=== PATIENT | male | born 1940 | race Caucasian/White ===

== ENCOUNTER 2018-07-14 09:18 | Inpatient (IN) | payer MEDICARE, BC ==
[~2018-07-14] VITALS: Ht 167.6 cm; Wt 77.5 kg
[2018-07-14] VITALS (21 sets, daily range): BP systolic 86–206; BP diastolic 44–112; PULSE 59–91; RESP 10–30; Ht 167.6 cm; Wt 77.5 kg
[~2018-07-14 09:18] MED LIST: CARV3.12 PO; CYCL10TA7 PO; DESFLURANE 15 MIN ONE; DOXA4TAB3 PO; DUTA0.5C PO; GABA300C PO; HYDR-762 PO; LOVA20TA PO
[2018-07-14] MEDS ORDERED: DOXA8TAB65 PO (09:51)
[2018-07-14] MEDS ORDERED: ATOR10TA65 PO (09:51)
[2018-07-14] MEDS ORDERED: CYCL10TA7 PO (09:52)
[2018-07-14] MEDS ORDERED: DUTA0.5C PO (09:53)
[2018-07-14] MEDS ORDERED: METO-335 PO (09:53)
[2018-07-14] MEDS ORDERED: ASPI81TA52 PO (09:54)
--- NOTE | 2018-07-14 11:35 | PREAC ---
Date/Time of Note Date/Time of Note DATE: 07/14/18 TIME: 11:28 Anesthesia Eval and Record Evaluation Time Pre-Procedure Interview DATE: 07/14/18 TIME: 11:28 Age 77 Sex male NPO: 8 hrs Preoperative diagnosis lumbar stenosis Planned procedure L2 to L4 anterior lumbar interbody fusion retroperitoneal approach with instrum entation, with iliac crest bone graft Past Medical History Past Medical History: Includes Cardio: HTN, Dyslipidemia, CAD, Other (aortic valve sclerosis) Pulm: COPD, Sleep Apnea Surgery & Anesthesia Issues No known issue Meds Anticoagulation: No Beta Alma within 24 hr: Yes Reported Medications Aspirin (Low Dose Aspirin) 81 Mg Tablet.dr, 81 MG PO DAILY, #30 TAB 07/14/18 Dutasteride* (Avodart*) 0.5 Mg Capsule, 0.5 MG PO DAILY, CAP 07/14/18 Metoprolol Succinate* (Toprol XL*) 25 Mg Tab.sr.24h, 25 MG PO DAILY, #30 TAB 07/14/18 Cyclobenzaprine Hcl* (Cyclobenzaprine Hcl*) 10 Mg Tablet, 10 MG PO BID PRN for MUSCLE SPASMS, #60 TAB 07/14/18 Doxazosin Mesylate* (Doxazosin Mesylate*) 8 Mg Tablet, 8 MG PO HS, TAB 07/14/18 Atorvastatin Calcium (Atorvastatin Calcium) 10 Mg Tablet, 10 MG PO QHS, #30 TAB 07/14/18 Discontinued Reported Medications Hydrocodone Bit-Acetaminophen* ([place]*) 10-325 Mg Tablet, 1 TAB PO Q4H PRN for PAIN, TAB 05/03/15 Carvedilol* (Coreg*) 3.125 Mg Tablet, 3.125 MG PO BID, TAB 05/03/15 Dutasteride* (Avodart*) 0.5 Mg Capsule, 0.5 MG PO DAILY, CAP 05/03/15 Cyclobenzaprine Hcl* (Cyclobenzaprine Hcl*) 10 Mg Tablet, 10 MG PO BID, TAB 05/03/15 Doxazosin Mesylate* (Doxazosin Mesylate*) 4 Mg Tablet, 4 MG PO DAILY, TAB 05/03/15 Lovastatin* (Lovastatin*) 20 Mg Tablet, 20 MG PO HS, TAB 05/03/15 Gabapentin* (Neurontin*) 300 Mg Capsule, 300 MG PO BID, CAP 05/03/15 Current Medications Cefazolin Sodium/ Dextrose 50 ml @ 100 mls/hr PRE-OP ONCE IVPB ; Start 07/15/18 at 06:00; Stop 07/15/18 at 06:29 Lactated Ringer's 1,000 ml @ 0 mls/hr Q0M IV* Last administered on 07/14/18at 1 0:33; Admin Dose 30 MLS/HR; Start 07/15/18 at 06:00; Stop 07/15/18 at 23:00 Meds reviewed: Yes Allergies Coded Allergies: No Known Allergy (Unverified , 07/14/18) Allergies Reviewed: Yes Labs/Studies Labs Reviewed: Reviewed by anesthesiologist Blood Bank Test 07/14/18 10:10 Antibody Screen NEGATIVE Blood Type A NEGATIVE test: N/A Studies: ECG, CXR Pre-procedure Exam Last vitals Vital Signs Date Temp Pulse Resp B/P (MAP) Pulse Ox O2 O2 Flow FiO2 Time Delivery Rate 07/14/18 97.6 83 16 129/80 97 Room Air 09:37 (96) Airway: Adequate mouth opening, Adequate thyromental dist Mallampati: Mallampati II Teeth: Normal Lung: Normal Heart: Normal ASA Physical Status ASA physical status: 3 Emergency: None Planned Anesthetic General/MAC: ETT Planned Pain Management Parenteral pain med Pre-operative Attestations Prior to commencing anesthesia and surgery, the patient was re-evaluated, there was verification of: *The patient's identity *The results of appropriate recent lab work and preoperative vital signs *The above evaluation not changing prior to induction *Anesthetic plan, risk benefits, alternative and complications discussed with patient/family; questions answered; patient/family understands, accepts and wishes to proceed. GIDEON PA Jul 14, 2018 11:35
[2018-07-14] MEDS ORDERED: HEPARIN 1000 UNITS/ML 10 ML INJ ONE (11:40)
[2018-07-14] MEDS ORDERED: SURGIFOAM POWDER 1 GM KIT ONE (11:40)
[2018-07-14] MEDS ORDERED: GELATIN SIZE 100 SPONGE ONE (11:40)
[2018-07-14] MEDS ORDERED: BUPIVACAINE 0.5%/EPI (SDV) 30 ML INJ ONE (11:40)
[2018-07-14] MEDS ORDERED: THROMBIN 5000 UNIT VIAL ONE (11:40)
[2018-07-14] MEDS ORDERED: PROPOFOL 20 ML ONE (12:05)
[2018-07-14] MEDS ORDERED: ROCURONIUM 50 MG INJ ONE (12:09)
--- NOTE | 2018-07-14 12:21 | HPN ---
Date/Time of Note Date/Time of Note DATE: 07/14/18 TIME: 12:21 Interval H&P Admission Note Pt. seen H&P reviewed: No system changes ELIEZER JETER PA-C Jul 14, 2018 12:21
[2018-07-14] MEDS ORDERED: LABETALOL HCL 20MG INJ ONE (12:38)
[2018-07-14] MEDS ORDERED: CEFAZOLIN 1 GM INJ ONE (13:08)
[2018-07-14] MEDS ORDERED: ONDANSETRON 4 MG INJ ONE (13:09)
[2018-07-14] MEDS ORDERED: DEXAMETHASONE 4 MG/ML 5 ML INJ ONE (13:09)
[2018-07-14] MEDS ORDERED: morphine 10 MG INJ ONE (13:10)
[2018-07-14] MEDS ORDERED: POLYMYXIN/BACITRACIN 1L IRRIG IRR ONE (13:47)
[2018-07-14] MEDS ORDERED: OXYCODONE/ACETAMINOPHEN (10/325) TAB PO PRN (15:30)
[2018-07-14] MEDS ORDERED: ACETAMINOPHEN 325 MG TAB PO PRN (15:30)
[2018-07-14] MEDS ORDERED: DIPHENHYDRAMINE 50 MG INJ IV PRN ×2 (15:30)
[2018-07-14] MEDS ORDERED: EPHEDrine SULFATE 50 MG/5 ML SYG IV PRN (15:30)
[2018-07-14] MEDS ORDERED: hydrALAzine 20 MG INJ IV PRN (15:30)
[2018-07-14] MEDS ORDERED: LABETALOL HCL 20MG INJ IV PRN (15:30)
[2018-07-14] MEDS ORDERED: ALBUTEROL 0.083% (NEB) 2.5 MG/3 ML AMP HHN PRN (15:30)
[2018-07-14] MEDS ORDERED: HYDROmorphONE 0.5 MG/0.5 ML SYG IV PRN ×3 (15:30)
[2018-07-14] MEDS ORDERED: morphine 4 MG/ML VIAL ONE (15:30)
[2018-07-14] MEDS ORDERED: MEPERIDINE 25 MG INJ IV PRN (15:30)
[2018-07-14] MEDS ORDERED: METOCLOPRAMIDE 10 MG INJ IV PRN (15:30)
[2018-07-14] MEDS ORDERED: BISACODYL 10 MG SUPP PR PRN (15:30)
[2018-07-14] MEDS ORDERED: CYCLOBENZAPRINE 10 MG TAB PO PRN (15:30)
[2018-07-14] MEDS ORDERED: ONDANSETRON 4 MG INJ IV PRN ×2 (15:30)
[2018-07-14] MEDS ORDERED: MIDAZOLAM 1 MG/ML 2 ML INJ IV PRN (15:30)
[2018-07-14] MEDS ORDERED: FENTAnyl 50 MCG/ML VIAL IV PRN ×2 (15:30)
[2018-07-14] MEDS ORDERED: DIPHENHYDRAMINE 25 MG CAP PO PRN (15:30)
[2018-07-14] MEDS ORDERED: AL HYDROX/MG HYDROX/SIMETH 30 ML CUP PO PRN (15:30)
[2018-07-14] MEDS ORDERED: CEPASTAT LOZENGE MT PRN (15:30)
[2018-07-14] MEDS ORDERED: NALOXONE (0.4 MG/ML) INJ IV PRN (15:30)
--- NOTE | 2018-07-14 15:31 | SIPON ---
Date/Time of Note Date/Time of Note DATE: 07/14/18 TIME: 15:30 Operative Report Preoperative Diagnosis lumbar deg scoli Postoperative Diagnosis lumbar deg scoli Operation/Procedure Performed L2-4 ALIF Surgeon see signature line [employer] assistant shavon Anesthesia: general Estimated blood loss: 10 - 50 ml's Transfusion Required none Specimen disk Grafts/Implants cages Complications none DEANNE NEWTON MD Jul 14, 2018 15:31
[2018-07-14] MEDS ORDERED: HYDROmorphONE 1 MG/ML SYG ONE (15:32)
[2018-07-14] MEDS ORDERED: FENTAnyl 50 MCG/ML VIAL ONE ×2 (15:39→15:49)
--- NOTE | 2018-07-14 15:41 | PAC ---
Date/Time of Note Date/Time of Note DATE: 07/14/18 TIME: 15:40 Post-Anesthesia Notes Post-Anesthesia Note Last documented vital signs Vital Signs Date Temp Pulse Resp B/P (MAP) Pulse Ox O2 O2 Flow FiO2 Time Delivery Rate 07/14/18 98.2 83 18 167/89 99 15:38 07/14/18 83 16 129/80 97 Room Air 09:37 (96) Activity: WNL Respiratory function: WNL Cardiovascular function: WNL Mental status: Baseline Pain reasonably controlled: Yes Hydration appropriate: Yes Nausea/Vomiting absent: Yes GIDEON PA Jul 14, 2018 15:41
[2018-07-14] MEDS ORDERED: hydrALAzine 20 MG INJ ONE (16:01)
[2018-07-14] MEDS: FENTAnyl 50 MCG/ML VIAL IV PRN ×5 (16:11→16:55)
[2018-07-14] MEDS: D5W-0.45 NACL + KCL 20 MEQ 1,000 ML IV SCH (16:26)
[2018-07-14] MEDS: CEFAZOLIN 1 GM/50 ML (PMX) 50 ML IVPB SCH (16:32)
--- NOTE | 2018-07-14 16:58 | PN ---
Date/Time of Note Date/Time of Note DATE: 07/14/18 TIME: 16:52 Assessment/Plan VTE Prophylaxis Risk score (from Nsg)>0 risk: 3 SCD applied (from Ns): Yes Pharmacological prophylaxis: NA/contraindicated Pharm contraindication: surgical contra Lines/Catheters IV Catheter Type (from Nrsg): Peripheral IV Urinary Cath still in place: Yes Reason Cath still needed: urinary retention Subjective 24 Hr Interval Summary Free Text/Dictation our group asked to see mr burr post op. he underwent an anterior interbody lumbar fusion today. in icu, awake but lots of pain. pmh reviewed, followed at [facility] and by cardiology by dr diaz. current issues...cad, stable, nl preop work up, hypertension, and hyperlipidemia. followed at [facility] w hx bronchiectasis, on fluticasone nasal spraqy and airduo inhaler bid. does not uses cpap machine. also hx bph on avodart and cardura. the cardura dose is 8mg, will hold for now as anders in place and bp a little low. lungs sound clear, hr ok, no edema, abd soft, scds on. Musculoskeletal: back pain Exam/Review of Systems Vital Signs Vitals Vital Signs Date Temp Pulse Resp B/P (MAP) Pulse Ox O2 O2 Flow FiO2 Time Delivery Rate 07/14/18 98.2 15:38 07/14/18 67 15:30 07/14/18 16 129/80 97 Room Air 09:37 (96) Medications Medications Current Medications Cefazolin Sodium/ Dextrose 50 ml @ 100 mls/hr PRE-OP ONCE IVPB ; Start 07/15/18 at 06:00; Stop 07/15/18 at 06:29 Lactated Ringer's 1,000 ml @ 0 mls/hr Q0M IV* Last administered on 07/14/18at 10:33; Admin Dose 30 MLS/HR; Start 07/15/18 at 06:00; Stop 07/15/18 at 23:00 Potassium Chloride/Dextrose/ Sod Cl 1,000 ml @ 100 mls/hr Q10H IV Last administered on 07/14/18at 16:26; Admin Dose 100 MLS/HR; Start 07/14/18 at 15:18 Oxycodone/ Acetaminophen (Endocet (10 325)) 1 tab Q4H PRN PO PAIN LEVEL 1-5; Start 07/17/18 at 15:00 Hydromorphone HCl (Dilaudid) 0.2 mg Q1H PRN IV BREAKTHROUGH PAIN; Start 07/14/18 at 15:30 Cefazolin Sodium 50 ml @ 100 mls/hr Q8H IVPB Last administered on 07/14/18at 16:32; Admin Dose 100 MLS/HR; Start 07/14/18 at 15:30; Stop 07/15/18 at 07:59 Ondansetron HCl (Zofran Inj) 4 mg Q6H PRN IV NAUSEA AND/OR VOMITING; Start 07/14/18 at 15:30 Bisacodyl (Dulcolax Supp) 10 mg DAILY PRN MA CONSTIPATION; Start 07/14/18 at 15:30 Docusate Sodium (Colace) 100 mg BID PO ; Start 07/14/18 at 21:00 Pantoprazole (Protonix Iv) 40 mg DAILY@06 IV ; Start 07/15/18 at 06:00 Al Hydrox/Mg Hydrox/Simethicone (Mag-Al Plus) 15 ml Q6H PRN PO const; Start 07/14/18 at 15:30 Acetaminophen (Tylenol Tab) 650 mg Q4H PRN PO fever; Start 07/14/18 at 15:30 Cyclobenzaprine HCl (Flexeril) 10 mg TID PRN PO MUSCLE SPASMS; Start 07/14/18 at 15:30 Phenol (Cepastat Lozenge) 1 lozenge PRN PRN MT SORE THROAT; Start 07/14/18 at 15:30 Diphenhydramine HCl (Benadryl) 25 mg Q6H PRN PO ITCHING; Start 07/14/18 at 15:30 Diphenhydramine HCl (Benadryl) 25 mg Q6H PRN IV ITCHING; Start 07/14/18 at 15:30 Naloxone HCl (Narcan) 0.2 mg Q2M PRN IV DECREASED REPIRATORY RATE; Start 07/14/18 at 15:30 Hydromorphone HCl (Dilaudid MARKETING LIAISON) MARKETING LIAISON to be started in PACU Q4PCA IV ; Start 07/14/18 at 15:30; Stop 07/17/18 at 10:00 Miscellaneous Information 1. Hold MARKETING LIAISON at 1,000... MARKETING LIAISON IV ; Start 07/14/18 at 15:30; Stop 07/17/18 at 14:00 Hydromorphone HCl (Dilaudid) 0.2 mg ICU RECOVERY PRN IV MILD PAIN LEVEL 1-3; Start 07/14/18 at 15:30; Stop 07/14/18 at 21:00 Hydromorphone HCl (Dilaudid) 0.4 mg ICU RECOVERY PRN IV MODERATE PAIN LEVEL 4-6; Start 07/14/18 at 15:30; Stop 07/14/18 at 21:00 Hydromorphone HCl (Dilaudid) 0.6 mg ICU RECOVERY PRN IV SEVERE PAIN LEVEL 7-10; Start 07/14/18 at 15:30; Stop 07/14/18 at 21:00 Fentanyl (Sublimaze) 25 mcg ICU RECOVERY PRN IV MILD PAIN LEVEL 1-3; Start 07/14/18 at 15:30; Stop 07/14/18 at 21:00 Fentanyl (Sublimaze) 50 mcg ICU RECOVERY PRN IV MODERATE PAIN LEVEL 4-6; Start 07/14/18 at 15:30; Stop 07/14/18 at 21:00 Fentanyl (Sublimaze) 75 mcg ICU RECOVERY PRN IV SEVERE PAIN LEVEL 7-10 Last administered on 07/14/18at 16:34; Admin Dose 75 MCG; Start 07/14/18 at 15:30; Stop 07/14/18 at 21:00 Ondansetron HCl (Zofran Inj) 4 mg ICU RECOVERY PRN IV NAUSEA AND/OR VOMITING; Start 07/14/18 at 15:30; Stop 07/14/18 at 21:00 Metoclopramide HCl (Reglan) 10 mg ICU RECOVERY PRN IV NAUSEA AND/OR VOMITING; Start 07/14/18 at 15:30 Labetalol HCl (Labetalol) 5 mg ICU RECOVERY PRN IV ELEVATED BLOOD PRESSURE Last administered on 07/14/18at 16:22; Admin Dose 5 MG; Start 07/14/18 at 15:30; Stop 07/14/18 at 21:00 Hydralazine HCl (Apresoline) 5 mg ICU RECOVERY PRN IV ELEVATED BLOOD PRESSURE Last administered on 07/14/18at 16:10; Admin Dose 5 MG; Start 07/14/18 at 15:30; Stop 07/14/18 at 21:00 Ephedrine Sulfate 5 mg ICU RECOVERY PRN IV BLOOD PRESSURE SUPPORT; Start 07/14/18 at 15:30; Stop 07/14/18 at 21:00 Albuterol (Proventil 0.083% (Neb)) 2.5 mg ICU RECOVERY PRN HHN WHEEZING; Start 07/14/18 at 15:30 Meperidine HCl (Demerol) 25 mg ICU RECOVERY PRN IV POST OPERATIVE SHIVERING; Start 07/14/18 at 15:30; Stop 07/14/18 at 21:00 Diphenhydramine HCl (Benadryl) 25 mg ICU RECOVERY PRN IV PRURITUS; Start 07/14/18 at 15:30; Stop 07/14/18 at 21:00 Midazolam HCl (Versed) 0.5 mg ICU RECOVERY PRN IV ANXIETY; Start 07/14/18 at 15:30; Stop 07/14/18 at 21:00 Oxycodone/ Acetaminophen (Endocet (10/ 325)) 2 tab Q4H PRN PO PAIN LEVEL 6-10; Start 07/17/18 at 15:00 Oxycodone/ Acetaminophen (Percocet (5/ 325)) 2 tab 0930 PO ; Start 07/17/18 at 09:30; Stop 07/17/18 at 09:31 Atorvastatin Calcium (Lipitor) 10 mg QHS PO ; Start 07/14/18 at 21:00; Status UNV Dutasteride (Avodart) 0.5 mg DAILY PO ; Start 07/15/18 at 09:00; Status UNV Metoprolol Succinate (Toprol Xl) 25 mg DAILY PO ; Start 07/15/18 at 09:00; Status UNV JAN IRAHETA MD Jul 14, 2018 16:58
[2018-07-14] MEDS: HYDROmorphONE 0.2 MG/ML PCA IV SCH (18:33)
[2018-07-14] MEDS: HYDROmorphONE 0.5 MG/0.5 ML SYG IV PRN (19:33)
[2018-07-14] MEDS ORDERED: DOCUSATE SODIUM 100 MG CAP PO SCH (21:00)
[2018-07-14] MEDS: ATORVASTATIN 10 MG TAB PO SCH (22:08)
[2018-07-15] VITALS (27 sets, daily range): BP systolic 98–153; BP diastolic 39–111; PULSE 73–123; RESP 11–27
[2018-07-15] MEDS: CEFAZOLIN 1 GM/50 ML (PMX) 50 ML IVPB SCH ×3 (00:07→18:22)
[2018-07-15] MEDS: HYDROmorphONE 0.2 MG/ML PCA IV SCH ×3 (02:13→19:37)
[2018-07-15] MEDS: HYDROmorphONE 0.5 MG/0.5 ML SYG IV PRN ×4 (03:43→19:51)
[2018-07-15] MEDS: D5W-0.45 NACL + KCL 20 MEQ 1,000 ML IV SCH ×2 (03:47→16:16)
[2018-07-15] MEDS ORDERED: CEFAZOLIN 2 GM/50 ML (PMX) 50 ML IVPB ONE (06:00)
[2018-07-15] MEDS ORDERED: PANTOPRAZOLE 40 MG INJ IV SCH (06:00)
[2018-07-15] MEDS ORDERED: LACTATED RINGER'S 1,000 ML IV* SCH (06:00)
[2018-07-15] MEDS ORDERED: SURGIFOAM POWDER 1 GM KIT ONE ×4 (06:39→11:45)
[2018-07-15] MEDS ORDERED: HEPARIN 1000 UNITS/ML 10 ML INJ ONE ×2 (06:40→06:51)
[2018-07-15] MEDS ORDERED: CEFAZOLIN 1 GM INJ ONE ×2 (06:40→07:00)
[2018-07-15] MEDS ORDERED: BUPIVACAINE 0.5%/EPI (SDV) 30 ML INJ ONE (06:40)
[2018-07-15] MEDS ORDERED: SODIUM CL BACTERIOSTATIC 30 ML INJ ONE (06:41)
[2018-07-15] MEDS ORDERED: BUPIVACAINE 0.25% (MPF) 30 ML INJ ONE (06:42)
[2018-07-15] MEDS ORDERED: THROMBIN 5000 UNIT VIAL ONE ×3 (06:50→11:46)
[2018-07-15] MEDS ORDERED: CA CHLORIDE 10% 10 ML SYRINGE ONE (06:51)
[2018-07-15] MEDS ORDERED: ROCURONIUM 50 MG INJ ONE ×2 (07:00→07:20)
[2018-07-15] MEDS ORDERED: DESFLURANE 15 MIN ONE (07:00)
[2018-07-15] MEDS ORDERED: METOCLOPRAMIDE 10 MG INJ ONE (07:00)
--- NOTE | 2018-07-15 07:08 | HPN ---
Date/Time of Note Date/Time of Note DATE: 07/15/18 TIME: 07:07 Interval H&P Admission Note Pt. seen H&P reviewed: No system changes ELIEZER JETER PA-C Jul 15, 2018 07:07
--- NOTE | 2018-07-15 07:10 | PREAC ---
Date/Time of Note Date/Time of Note DATE: 07/15/18 TIME: 07:08 Anesthesia Eval and Record Evaluation Time Pre-Procedure Interview DATE: 07/15/18 TIME: 07:08 Age 77 Sex male NPO: 8 hrs Preoperative diagnosis lumbar spinal stenosis s/p lateral fixation Planned procedure anterior/posterior spinal decompression and fusion Past Medical History Past Medical History: Includes Cardio: HTN, Dyslipidemia, [place], CAD, PTCA/Stent, CHF, Other (AV slerosis (unknown width() Pulm: COPD Neuro: Peripheral neuropathy Musculoskeletal: Osteoarthritis Surgery & Anesthesia Issues No known issue Meds Anticoagulation: No Beta Alma within 24 hr: Yes Reason Beta Alma not given: Pt. not on B-Alma Reported Medications Aspirin (Low Dose Aspirin) 81 Mg Tablet.dr, 81 MG PO DAILY, #30 TAB 07/14/18 Dutasteride* (Avodart*) 0.5 Mg Capsule, 0.5 MG PO DAILY, CAP 07/14/18 Metoprolol Succinate* (Toprol XL*) 25 Mg Tab.sr.24h, 25 MG PO DAILY, #30 TAB 07/14/18 Cyclobenzaprine Hcl* (Cyclobenzaprine Hcl*) 10 Mg Tablet, 10 MG PO BID PRN for MUSCLE SPASMS, #60 TAB 07/14/18 Doxazosin Mesylate* (Doxazosin Mesylate*) 8 Mg Tablet, 8 MG PO HS, TAB 07/14/18 Atorvastatin Calcium (Atorvastatin Calcium) 10 Mg Tablet, 10 MG PO QHS, #30 TAB 07/14/18 Discontinued Reported Medications Hydrocodone Bit-Acetaminophen* ([place]*) 10-325 Mg Tablet, 1 TAB PO Q4H PRN for PAIN, TAB 05/03/15 Carvedilol* (Coreg*) 3.125 Mg Tablet, 3.125 MG PO BID, TAB 05/03/15 Dutasteride* (Avodart*) 0.5 Mg Capsule, 0.5 MG PO DAILY, CAP 05/03/15 Cyclobenzaprine Hcl* (Cyclobenzaprine Hcl*) 10 Mg Tablet, 10 MG PO BID, TAB 05/03/15 Doxazosin Mesylate* (Doxazosin Mesylate*) 4 Mg Tablet, 4 MG PO DAILY, TAB 05/03/15 Lovastatin* (Lovastatin*) 20 Mg Tablet, 20 MG PO HS, TAB 05/03/15 Gabapentin* (Neurontin*) 300 Mg Capsule, 300 MG PO BID, CAP 05/03/15 Current Medications Lactated Ringer's 1,000 ml @ 0 mls/hr Q0M IV* Last administered on 07/14/18at 10:33; Admin Dose 30 MLS/HR; Start 07/15/18 at 06:00; Stop 07/15/18 at 23:00 Potassium Chloride/Dextrose/ Sod Cl 1,000 ml @ 100 mls/hr Q10H IV Last administered on 07/15/18at 03:47; Admin Dose 100 MLS/HR; Start 07/14/18 at 15:18 Oxycodone/ Acetaminophen (Endocet (10 325)) 1 tab Q4H PRN PO PAIN LEVEL 1-5; Start 07/17/18 at 15:00 Hydromorphone HCl (Dilaudid) 0.2 mg Q1H PRN IV BREAKTHROUGH PAIN Last a dministered on 07/15/18at 06:29; Admin Dose 0.2 MG; Start 07/14/18 at 15:30 Cefazolin Sodium 50 ml @ 100 mls/hr Q8H IVPB Last administered on 07/15/18at 00:07; Admin Dose 100 MLS/HR; Start 07/14/18 at 15:30; Stop 07/15/18 at 07:59 Ondansetron HCl (Zofran Inj) 4 mg Q6H PRN IV NAUSEA AND/OR VOMITING; Start 07/14/18 at 15:30 Bisacodyl (Dulcolax Supp) 10 mg DAILY PRN [place] CONSTIPATION; Start 07/14/18 at 15:30 Docusate Sodium (Colace) 100 mg BID PO Last administered on 07/14/18at 22:08; Admin Dose 100 MG; Start 07/14/18 at 21:00 Pantoprazole (Protonix Iv) 40 mg DAILY@06 IV Last administered on 07/15/18at 06:14; Admin Dose 40 MG; Start 07/15/18 at 06:00 Al Hydrox/Mg Hydrox/Simethicone (Mag-Al Plus) 15 ml Q6H PRN PO const; Start 07/14/18 at 15:30 Acetaminophen (Tylenol Tab) 650 mg Q4H PRN PO fever; Start 07/14/18 at 15:30 Cyclobenzaprine HCl (Flexeril) 10 mg TID PRN PO MUSCLE SPASMS Last administered on 07/14/18at 22:08; Admin Dose 10 MG; Start 07/14/18 at 15:30 Phenol (Cepastat Lozenge) 1 lozenge PRN PRN MT SORE THROAT; Start 07/14/18 at 15:30 Diphenhydramine HCl (Benadryl) 25 mg Q6H PRN PO ITCHING; Start 07/14/18 at 15:30 Diphenhydramine HCl (Benadryl) 25 mg Q6H PRN IV ITCHING Last administered on 07/15/18at 00:08; Admin Dose 25 MG; Start 07/14/18 at 15:30 Naloxone HCl (Narcan) 0.2 mg Q2M PRN IV DECREASED REPIRATORY RATE; Start 07/14/18 at 15:30 Hydromorphone HCl (Dilaudid COLLECTION TECHNICIAN) COLLECTION TECHNICIAN to be started in PACU Q4PCA IV Last administered on 07/15/18at 02:13; Admin Dose 6 MG; Start 07/14/18 at 15:30; Stop 07/17/18 at 10:00 Miscellaneous Information 1. Hold COLLECTION TECHNICIAN at 1,000... COLLECTION TECHNICIAN IV ; Start 07/14/18 at 15:30; Stop 07/17/18 at 14:00 Metoclopramide HCl (Reglan) 10 mg ICU RECOVERY PRN IV NAUSEA AND/OR VOMITING; Start 07/14/18 at 15:30 Albuterol (Proventil 0.083% (Neb)) 2.5 mg ICU RECOVERY PRN HHN WHEEZING; Start 07/14/18 at 15:30 Oxycodone/ Acetaminophen (Endocet (10/ 325)) 2 tab Q4H PRN PO PAIN LEVEL 6-10; Start 07/17/18 at 15:00 Oxycodone/ Acetaminophen (Percocet (5/ 325)) 2 tab 0930 PO ; Start 07/17/18 at 09:30; Stop 07/17/18 at 09:31 Atorvastatin Calcium (Lipitor) 10 mg QHS PO Last administered on 07/14/18at 22:08; Admin Dose 10 MG; Start 07/14/18 at 21:00 Dutasteride (Avodart) 0.5 mg DAILY PO ; Start 07/15/18 at 09:00 Metoprolol Succinate (Toprol Xl) 25 mg DAILY PO ; Start 07/15/18 at 09:00 Fluticasone/ Vilanterol (Breo Ellipta 200-25 Mcg Inh) 1 inh DAILY INH ; Start 07/15/18 at 09:00 Meds reviewed: Yes Allergies Coded Allergies: No Known Allergy (Unverified , 07/14/18) Allergies Reviewed: Yes Labs/Studies Labs Reviewed: Reviewed by anesthesiologist Result Diagram: 07/15/18 0400 07/15/18 0400 Laboratory Tests 07/15/18 04:00 Blood Bank Test 07/14/18 10:10 Antibody Screen NEGATIVE Blood Type A NEGATIVE test: N/A Studies: ECG, CXR, Stress test, Other (cardiology clearance) Pre-procedure Exam Last vitals Vital Signs Date Temp Pulse Resp B/P (MAP) Pulse Ox O2 O2 Flow FiO2 Time Delivery Rate 07/15/18 18 06:00 07/15/18 73 04:00 07/15/18 97.0 142/64 95 Room Air 04:00 (90) 07/14/18 4.0 16:00 Airway: Adequate mouth opening, Adequate thyromental dist Mallampati: Mallampati III Teeth: Normal Lung: Normal Heart: Normal ASA Physical Status ASA physical status: 3 Emergency: None Planned Anesthetic General/MAC: ETT Planned Pain Management Local by surgeon Pre-operative Attestations Prior to commencing anesthesia and surgery, the patient was re-evaluated, there was verification of: *The patient's identity *The results of appropriate recent lab work and preoperative vital signs *The above evaluation not changing prior to induction *Anesthetic plan, risk benefits, alternative and complications discussed with patient/family; questions answered; patient/family understands, accepts and wishes to proceed. SKYLA SHELTON MD Jul 15, 2018 07:10
--- NOTE | 2018-07-15 07:10 | PN ---
Date/Time of Note Date/Time of Note DATE: 07/15/18 TIME: 07:09 Assessment/Plan Lines/Catheters IV Catheter Type (from Nrs): A Line Lares in Place (from Nrs): Yes Assessment/Plan Assessment/Plan to go to OR this AM for part 2 of his surgery Subjective 24 Hr Interval Summary c/o LBP Exam/Review of Systems Vital Signs Vitals Vital Signs Date Temp Pulse Resp B/P (MAP) Pulse Ox O2 O2 Flow FiO2 Time Delivery Rate 07/15/18 18 06:00 07/15/18 73 04:00 07/15/18 97.0 142/64 95 Room Air 04:00 (90) 07/14/18 4.0 16:00 Intake and Output 07/14/18 07/14/18 07/15/18 1515:00 23:00 07:00 IntakeIntake Total 2660 ml 550 ml OutputOutput Total 510 ml 320 ml BalanceBalance 2150 ml 230 ml Exam Free Text/Dictation exam unchanged Results Result Diagram: 07/15/18 0400 07/15/18399 ELIEZER JETER PA-C Jul 15, 2018 07:10
[2018-07-15] MEDS ORDERED: LIDOCAINE 2% (SDV) 5 ML INJ ONE (07:20)
[2018-07-15] MEDS ORDERED: MIDAZOLAM 1 MG/ML 2 ML INJ ONE ×2 (07:20→08:17)
[2018-07-15] MEDS ORDERED: PROPOFOL 20 ML ONE (07:20)
[2018-07-15] MEDS ORDERED: ALBUMIN HUMAN 25% 200 ML ONE (07:20)
[2018-07-15] MEDS ORDERED: SUCCINYLCHOLINE CHLORIDE 100 MG/5 ML SYG IV ONE (07:20)
[2018-07-15] MEDS ORDERED: DEXAMETHASONE 4 MG/ML 5 ML INJ ONE (07:25)
[2018-07-15] MEDS ORDERED: MEPERIDINE 25 MG INJ IV PRN (07:30)
[2018-07-15] MEDS ORDERED: LEVALBUTEROL (NEB) 1.25 MG/0.5 ML AMP HHN PRN (07:30)
[2018-07-15] MEDS ORDERED: FENTAnyl 50 MCG/ML VIAL IV PRN ×2 (07:30)
[2018-07-15] MEDS ORDERED: HYDROmorphONE 0.5 MG/0.5 ML SYG IV PRN ×3 (07:30)
[2018-07-15] MEDS ORDERED: IPRATROPIUM (NEB) 0.5 MG/2.5 ML AMP HHN PRN (07:30)
[2018-07-15] MEDS ORDERED: MIDAZOLAM 1 MG/ML 2 ML INJ IV PRN (07:30)
[2018-07-15] MEDS ORDERED: hydrALAzine 20 MG INJ IV PRN (07:30)
[2018-07-15] MEDS ORDERED: DIPHENHYDRAMINE 50 MG INJ IV PRN ×2 (07:30→15:30)
[2018-07-15] MEDS ORDERED: ONDANSETRON 4 MG INJ IV PRN ×2 (07:30→15:30)
[2018-07-15] MEDS ORDERED: LABETALOL HCL 20MG INJ IV PRN (07:30)
[2018-07-15] MEDS ORDERED: LORAZEPAM 2 MG INJ IV PRN (07:30)
[2018-07-15] MEDS ORDERED: ALBUMIN HUMAN 5% 250 ML IV PRN (07:30)
--- NOTE | 2018-07-15 08:08 | OPR ---
DATE OF OPERATION: 07/14/2018 PREOPERATIVE DIAGNOSES: 1. Degenerative lumbar scoliosis with disk disease, stenosis and radiculopathy. 2. Previous lumbar decompression. 3. Cardiac disease. POSTOPERATIVE DIAGNOSES: 1. Degenerative lumbar scoliosis with disk disease, stenosis and radiculopathy. 2. Previous lumbar decompression. 3. Cardiac disease. PROCEDURES: 1. Anterior lumbar interbody fusion at L2-L3 and L3-L4. 2. Placement of intervertebral mechanical device at L4 and L2-L3. 3. Use of allograft. 4. Use of C-arm fluoroscopy with interpretation without radiologist present. 5. Intraoperative neuromonitoring. IMPLANTS: 1. RTI Fortilink 9 mm with 6 degree lordosis with 50 mm with at L3-L4 and L2-L3. 2. Biosphere. PRIMARY SURGEON: Romario Terrazas MD FOOT SPECIALIST: Anna Grant PA-C NEED FOR MERCHANDISE APPRAISER: During this spinal surgical procedure, my retail event assistant was used to retract and protect the spinal nerves and dural sac. My retail event assistant also employed the suction catheters to ev acuate blood from the surgical field to improve visualization of the neural structures. The assistan t was medically necessary to facilitate the completion of the surgery in a safe and expeditious [facility]. [facility] regulations, as well as hospital bylaws, preclude the use of non-licensed [place] [facility] care personnel, such as operating room technicians, to perform these functions. FINDINGS: Patient had very minimal motion of the lumbar spine. His rib was quite close to his pelvi s. In fact, had to be anterior to the left rib in order to access the disk space. At the start of t he case, neuromonitoring revealed L2 down 20% bilaterally, L3 down 30% bilaterally, L4 down 30% bilat erally, L5 down 60% bilaterally, S1 down 40% bilaterally. At the end of the case L2 and L3 were down 10% bilaterally, L4 was down 30% bilaterally, L5 was down 40% bilaterally, S1 was down 20% left and 10% on the right. ESTIMATED BLOOD LOSS: Less than 50 mL. DRAINS: None. SPECIMENS: L2-L3 and L3-L4 disk. COMPLICATIONS OF PROCEDURES: None. ANESTHESIOLOGIST: Dr. Tillman TYPE OF ANESTHESIA: General. INDICATIONS FOR PROCEDURE: This is a 77-year-old gentleman with degenerative lumbar scoliosis and st enosis in setting of disk disease who had previously undergone lumbar decompression. He failed furth er nonoperative measures; therefore, it is recommended he undergo the above procedure. Preoperativel y, we discussed risks, benefits, and alternatives. He understood and wished to proceed. DESCRIPTION OF PROCEDURE IN DETAIL: The patient was identified in the preoperative holding area, [facility], taken to the operating room, where he was successfully placed under general anes thesia. Neuromonitoring placed. Sequential devices were applied. Lares catheter was introduced. A rterial line was placed. Remote intraoperative neuromonitoring performed by Dr. Dumont from 11:00 a.m. until 1524 to include SSEP, MEP, and EMG performed by [facility]. The patient was placed in right lateral decubitus position. Axillary roll was placed. The patient was secured to the tabl e and table was flexed to allow access to the spine. The left flank area was then prepped and draped in usual sterile fashion. The distance between the lower ribs and the top of the iliac crest were q uite minimal. In order to approach the spine, I was anterior to the lowest rib. I was able to make an incision anteriorly and identified the retroperitoneal space through which I placed a probes, sequ ential dilators, and the final retractor blade under nerve monitoring. I then identified the annulus of the L3-L4 level. Visually, there is no neural elements in the field. Furthermore, I probed the area. There is no evidence of neural elements. I was then able to perform a radical diskectomy. I then placed various trials and chose the appropriate graft height. I then took the PEEK cage within which I placed allograft and I impacted intervertebral mechanical device into the L3-L4 level to comp lete the anterior fusion at L3-L4. Once this was done, I turned my attention to the L2-L3 level. Si milarly, I docked a dilator followed by placement of the wire. I placed large dilators. I placed a retractor. I examined the annulus and there were no neural elements in the field. I probed the area to confirm this. I was able to pass a knife blade into the disk space, but there was a large osteop hyte and therefore had to use an osteotome to remove the lateral non-marginal osteophyte in order to access the disk space. Once this was done, I performed a radical diskectomy. I placed various trial s and chose the appropriate graft height. I then took the PEEK cage within which I placed allograft and I impacted the intravertebral mechanical device into the L2-L3 level to complete the anterior lum bar interbody fusion. Once this was done, I took AP and lateral images and I was happy with placemen t of the hardware and alignment of the spine. This completed stage 1. The patient was awakened and taken to recovery in stable condition. Lap, sponge counts were correct x2. There were no apparent c omplications during the procedure. The patient was admitted to the ICU given placement of the arterial line and will return to the [facility] room on 07/15/2018 for stage 2 to include anterior fusion at L4-L5 and L5-S1 with posterior inst rumented fusion. There were no apparent complications were identified during stage 1. Dictated By: ROMARIO MANJARREZ/HANY Conf#: [id number] DID#: [id number]
[2018-07-15] MEDS: THROMBIN 5000 UNIT VIAL ONE ×2 (08:40→10:31)
[2018-07-15] MEDS ORDERED: METOPROLOL (XL) 25 MG TAB PO SCH (09:00)
[2018-07-15] MEDS: DUTASTERIDE 0.5 MG CAP PO SCH (09:00)
[2018-07-15] MEDS ORDERED: FLUTICASONE/VILANTEROL 200-25 INH DEVICE INH SCH (09:00)
[2018-07-15] MEDS ORDERED: hydrALAzine 20 MG INJ ONE (09:22)
[2018-07-15] MEDS ORDERED: HYDROmorphONE 2 MG/ML SYG ONE (10:36)
--- NOTE | 2018-07-15 12:35 | OPR ---
DATE OF OPERATION: 07/15/2018 PREOPERATIVE DIAGNOSES: Degenerative lumbar scoliosis, status post ALIF at L2 to L3 and L3 to L4 with posterior decompression. POSTOPERATIVE DIAGNOSES: Degenerative lumbar scoliosis, status post ALIF at L2 to L3 and L3 to L4 with posterior decompression. PROCEDURE: Anterior lumbar approach of lumbar spine. PRIMARY SURGEON: Romario Terrazas MD COSURGEON: Pantera Sahu MD SECOND SAFE DEPOSIT ATTENDANT: Anna Grant PA-C FINDINGS: Please see body of dictation. INDICATIONS FOR PROCEDURE: This is a 77-year-old gentleman with degenerative scoliosis. He completed the stage I procedure which was a lateral fusion at L2 to L3 and L3 to L4 and presents for the anterior fusion at L4 to L5 and L5 to S1. DESCRIPTION OF PROCEDURE IN DETAIL: The patient was identified in the ICU, given Ancef antibiotic, taken to the operating room, where he was successfully placed under general anesthesia. Antibiotics were given. He was placed in the supine position. Abdomen was prepped and draped in usual sterile fashion. Dr. Sahu performed an anterior approach to the spine which he will dictate separately. Once we had identified the retroperitoneal space, hematoma from the previous surgery was identified. The vessels however were socked in due to quite a bit of reactive inflammation and he was unable to mobilize the great vessels in order to access either the L4 to L5 and L5 to S1 disk spaces. Lymph nodes were identified and he ligated these and cut them and sent for pathology. Pathology states it is likely reactive tissue, but cannot rule out a lymphoma and was sending this for more advanced pathology. Given that we were unable to mobilize the vessels to access the disk spaces, we proceeded to close the wound. Lap, sponge and instrument counts were correct x2. There were no apparent complications during the procedure other than the inability to access the spine. We will place him into the prone position and perform a fusion from a posterior approach. Dictated By: ROMARIO TERRAZAS MD BB/NTS Conf#: [id number] DID#: [id number] CC: GAGE CASTILLO MD;*EndCC* MTDD
[2018-07-15] MEDS ORDERED: KETAMINE (50 MG/ML) 10 ML VIAL ONE (13:48)
[2018-07-15] MEDS ORDERED: PROVENTIL HFA 6.7GM INHALER ONE (15:06)
--- NOTE | 2018-07-15 15:23 | SIPON ---
Date/Time of Note Date/Time of Note DATE: 07/15/18 TIME: 15:22 Operative Report Preoperative Diagnosis deg scoli Postoperative Diagnosis deg scoli Operation/Procedure Performed L2-S1 instrumented fusion Surgeon see signature line housekeeper and laundry assistant shavon Anesthesia: general Estimated blood loss: other Transfusion Required none Specimen disk Grafts/Implants cage and screws Complications none DEANNE NEWTON MD Jul 15, 2018 15:23
[2018-07-15] MEDS ORDERED: CEPASTAT LOZENGE MT PRN (15:30)
[2018-07-15] MEDS ORDERED: BISACODYL 10 MG SUPP PR PRN (15:30)
[2018-07-15] MEDS ORDERED: OXYCODONE/ACETAMINOPHEN (10/325) TAB PO PRN ×2 (15:30)
[2018-07-15] MEDS ORDERED: ACETAMINOPHEN 325 MG TAB PO PRN (15:30)
[2018-07-15] MEDS ORDERED: DIPHENHYDRAMINE 25 MG CAP PO PRN (15:30)
[2018-07-15] MEDS ORDERED: AL HYDROX/MG HYDROX/SIMETH 30 ML CUP PO PRN (15:30)
[2018-07-15] MEDS ORDERED: NALOXONE (0.4 MG/ML) INJ IV PRN (15:30)
--- NOTE | 2018-07-15 15:56 | OPR ---
DATE OF OPERATION: 07/15/2018 PREOPERATIVE DIAGNOSES: 1. Degenerative lumbar scoliosis. 2. History of lumbar decompression. 3. Radiculopathy with neurological symptoms. 4. Status post anterior lumbar interbody fusion at L2 to L3 and L3 to L4. POSTOPERATIVE DIAGNOSES: 1. Degenerative lumbar scoliosis. 2. History of lumbar decompression. 3. Radiculopathy with neurological symptoms. 4. Status post anterior lumbar interbody fusion at L2 to L3 and L3 to L4. PROCEDURES: 1. Pedicle screw placement at L2, L3, L4, L5, S1 on the left and at L2, L4, S1 on the right. 2. Posterolateral fusion at L2 to L3, L3 to L4 and L5 to S1. 3. Transforaminal lumbar interbody fusion at L4 to L5 and L5 to S1. 4. Placement of intervertebral mechanical device x2. 5. Use of allograft. 6. Use of C-arm fluoroscopy with interpretation without radiologist present. 7. Intraoperative monitoring. 8. Use of operative microscope. PRIMARY SURGEON: Romario Terrazas MD PACKAGE LIFT OPERATOR: Anna Grant PA-C NEED FOR CREATIVE RESOURCE MANAGER: During this spinal surgical procedure, my personal banking assistant was used to retract and protect the spinal nerves and dural sac. My personal banking assistant also employed the suction catheters to evacuate blood from the surgical field to improve visualization of the neural structures. The personal banking assistant was medically necessary to facilitate the completion of the surgery in a safe and expeditious manner. State of [place] regulations, as well as hospital bylaws, preclude the use of non-licensed health care personnel, such as operating room technicians, to perform these functions. IMPLANTS: 1. RTI streamline MIS pedicle screws 5.5 x 45 mm bilaterally at L2, 5.5 x 45 mm on the left at L3, 6.5 x 45 mm bilaterally L4, 6.5 x 45 mm on the left at L5, 6.5 x 45 mm bilaterally at S1, 110 mm jack on the right, 100 mm jack on the left. 2. Biosphere. 3. Nexxt Matrixx 30 mm x 8 mm oblique cage at L4 to L5 and 7 mm at L5 to S1. FINDINGS: Neuromonitoring at the start of the case revealed bilateral L2 and L3 amplitude down 10%, bilateral L4 down 20%, left L5 down 40%, right L5 down 30%, left S1 down 20%, right S1 down 30%. At the end the case, L2, L3, L4 were normal and L5 and S1 are down 10% bilaterally. The patient has significant stenosis on the right side due to facet and ligamentum hypertrophy and overgrowth of the facet joint and likely pars defect. ESTIMATED BLOOD LOSS: 500 mL. DRAINS: One. SPECIMENS: L4 to L5 and L5 to S1 disks. COMPLICATIONS OF PROCEDURES: None. ANESTHESIOLOGIST: Dr. Salazar. TYPE OF ANESTHESIA: General. INDICATIONS FOR PROCEDURE: This is a 77-year-old gentleman who had previously undergone spinal surgery x2 on the left side. He developed a degenerative scoliosis, chronic back pain with radiating pain into the lower extremities. He failed conservative measures and therefore is recommended that he undergo the above procedure. He completed the initial stage surgery on 07/13/2018 which included a far lateral anterior fusion at L2 to L3 and L3 to L4. He initially this morning presented for ALIF at L4 to L5 and L5 to S1, but was unable to access this level and therefore is recommended that he undergo the above procedure from the posterior approach. DESCRIPTION OF PROCEDURE IN DETAIL: The patient had received antibiotics. Neuromonitoring leads were placed. Remote intraoperative neuromonitoring was performed by Dr. Dumont from 6:30 until 15:00 to include SSEP, MEP and EMG performed by [facility]. The patient was in prone position over Andry frame. All bony prominences were well padded. The back was then prepped and draped in usual sterile fashion. Initially, I placed pedicle screws on the left at L2, L3, L4, L5 and S1 under C-arm guidance. On the right side, I placed him at L2, L4 and S1. Once the screws were in place, I stimulated each of the screws and there was no evidence of cortical breach. Through the parasagittal approach, I dissected down onto the facets to see if I could perform an interbody fusion from this angle but due to the significant facet hypertrophy, I had to make a midline incision due to the alteration of the field to be more safe. As such, I used the patient's previous incision and made a midline incision over the L4 to L5 and L5 to S1 levels. I exposed the right L4, L5 and S1 lamina. Due to the alteration of the field, at least an additional hour of surgical time was required. I was able to perform partial decompressions with facetectomies in order to identify the annulus and exiting the traversing nerve roots at both levels. I then identified the annulus at L5 to S1 and brought in the microscope. Under the microscope, I made annulotomy followed by radical diskectomy. I prepared the endplates and placed various trials and chose the appropriate graft height. Once this was done, I took autograft and allograft and placed into the disk space anteriorly. I then took the titanium cage within which I placed allograft and I impacted intervertebral mechanical device into the L5 to S1 level to complete the transforaminal lumbar interbody fusion at this level. I then turned my attention to the L4 to L5 level. Similarly here, I made the annulotomy followed by radical diskectomy and prepared the endplates. Once this was done, I placed various trials and chose the appropriate graft height. I then took the titanium cage within which I placed allograft and I impacted the intervertebral mechanical device into the L4 to L5 level to complete the transforaminal lumbar interbody fusion at this level. Once this was done, I placed the appropriate rods bilaterally with set screws with tightening per manufacture's specification. I removed the wafer polishing worker rods. Microscope was off the field at this point and I took final AP and lateral images and I was happy with placement of the hardware and alignment of the spine. I then prepared the posterolateral gutter and I used a mixture of autograft and allograft for posterolateral fusion at L2 to L3, L3 to L4, L4 to L5 and L5 to S1. A deep subfascial drain was then placed and fascial incision was closed with #1 Vicryl stitch. I then closed all 3 incisions with 2-0 Vicryl stitch and I closed the midline incision with a Monocryl stitch. Dermabond and sterile dressing was then applied. The patient was then awakened from anesthesia and taken to ICU in stable condition. Lap, sponge and instrument counts were correct x2. There were no apparent complications during the procedure. The patient will be admitted for routine postoperative care to include pain control, neurovascular checks, antibiotics and physical therapy. Dictated By: ROMARIO MANJARREZ/HANY Conf#: [id number] DID#: [id number] CC: GAGE CASTILLO MD;*EndCC* MTDD
--- NOTE | 2018-07-15 17:27 | CONS ---
Date/Time of Note Date/Time of Note DATE: 07/15/18 TIME: 17:23 Assessment/Plan Assessment/Plan Problems: (1) Status post lumbar spinal fusion Onset Date: ~ 07/15/2018 Status: Acute Comment: Mouna post stage II of the procedure. At this time doing relatively well and stable. (2) Status post lumbar and lumbosacral fusion by anterior technique Onset Date: ~ 07/14/2018 Status: Acute Comment: Please see pathology reports which show pseudogout. (3) Essential hypertension Status: Chronic Comment: Maintain blood pressure medications (4) Coronary artery disease Status: Chronic Comment: Quiescent. Maintain beta-blockade Qualifiers: Coronary Disease-Associated Artery/Lesion type: [place] artery [place] vs. transplanted heart: [place] heart Associated angina: without angina Qualified Codes: I25.10 - Atherosclerotic heart disease of [place] coronary artery without angina pectoris (5) Hyperlipidemia Status: Chronic Comment: Maintain statin therapy Qualifiers: Hyperlipidemia type: pure hypercholesterolemia Qualified Codes: E78.00 - Pure hypercholesterolemia, unspecified (6) Benign prostatic hyperplasia Status: Chronic Comment: Continue with treatment. Please note this time he has a Lares catheter Qualifiers: Lower urinary tract symptom presence: symptoms present Lower urinary tract symptom detail: urinary hesitancy Qualified Codes: N40.1 - Benign prostatic hyperplasia with lower urinary tract symptoms; R39.11 - Hesitancy of micturition (7) COPD (chronic obstructive pulmonary disease) Status: Chronic Comment: Standard therapeutics Qualifiers: COPD type: unspecified COPD Qualified Codes: J44.9 - Chronic obstructive pulmonary disease, unspecified (8) Obstructive sleep apnea Status: Chronic Comment: Nocturnal BiPAP (9) Pseudogout Comment: Noted in the pathology reports. No specific intervention at this moment Result Diagram: 07/15/18 0400 07/15/18 0400 Results 24hrs Laboratory Tests Test 07/15/18 04:00 White Blood Count 10.1 # Red Blood Count 3.91 L Hemoglobin 13.5 L Hematocrit 38.7 L Mean Corpuscular Volume 99.0 Mean Corpuscular Hemoglobin 34.5 H Mean Corpuscular Hemoglobin Concent 34.9 Red Cell Distribution Width 13.0 Platelet Count 183 Mean Platelet Volume 9.5 Immature Granulocytes % 0.300 Neutrophils % 72.5 Lymphocytes % 12.9 L Monocytes % 14.1 H Eosinophils % 0.0 Basophils % 0.2 Nucleated Red Blood Cells % 0.0 Immature Granulocytes # 0.030 Neutrophils # 7.3 Lymphocytes # 1.3 Monocytes # 1.4 H Eosinophils # 0.0 Basophils # 0.0 Nucleated Red Blood Cells # 0.0 Sodium Level 136 Potassium Level 3.7 Chloride Level 106 Carbon Dioxide Level 25 Anion Gap 5 Blood Urea Nitrogen 11 Creatinine 0.60 L Est Glomerular Filtrat Rate mL/min Glucose Level 118 Calcium Level 8.6 Magnesium Level 1.9 Consultation Date/Type/Reason Admit Date/Time Jul 14, 2018 at 09:18 Initial Consult Date July 14, 2018 Type of Consult Internal medicine Reason for Consultation Postoperative assistance after major spinal surgery in stages Requesting Provider: DEANNE NEWTON MD 24 HR Interval Summary Free Text/Dictation Patient is real relatively recently postop after stage II surgery. He is somewhat disoriented and reports being in pain Constitutional: no complaints Detailed Summary Respiratory: no complaints (No shortness of breath no cough) Cardiovascular: no complaints (No chest pain no palpitations) Gastrointestinal: no complaints Genitourinary: no complaints Musculoskeletal: back pain Exam/Review of Systems Vital Signs Vitals Vital Signs Date Temp Pulse Resp B/P (MAP) Pulse Ox O2 O2 Flow FiO2 Time Delivery Rate 07/15/18 16:30 07/15/18 97.2 73 120/75 97 Room Air 07:00 (90) 07/14/18 4.0 16:00 Intake and Output 07/14/18 07/14/18 07/15/18 1515:00 23:00 07:00 IntakeIntake Total 2660 ml 650 ml OutputOutput Total 510 ml 320 ml BalanceBalance 2150 ml 330 ml Exam Constitutional: alert Neck: supple, non-tender Respiratory: clear to auscultation, normal air movement Cardiovascular: regular rate and rhythm, nl pulses Gastrointestinal: soft, nl liver, spleen, non-tender Medications Medications Current Medications Oxycodone/ Acetaminophen (Endocet (10/ 325)) 1 tab Q4H PRN PO PAIN LEVEL 1-5; Start 07/17/18 at 15:00 Metoclopramide HCl (Reglan) 10 mg ICU RECOVERY PRN IV NAUSEA AND/OR VOMITING; Start 07/14/18 at 15:30 Albuterol (Proventil 0.083% (Neb)) 2.5 mg ICU RECOVERY PRN HHN WHEEZING; Start 07/14/18 at 15:30 Oxycodone/ Acetaminophen (Endocet (10/ 325)) 2 tab Q4H PRN PO PAIN LEVEL 6-10; Start 07/17/18 at 15:00 Oxycodone/ Acetaminophen (Percocet (5/ 325)) 2 tab 0930 PO ; Start 07/17/18 at 09:30; Stop 07/17/18 at 09:31 Atorvastatin Calcium (Lipitor) 10 mg QHS PO Last administered on 07/14/18at 22:08; Admin Dose 10 MG; Start 07/14/18 at 21:00 Dutasteride (Avodart) 0.5 mg DAILY PO ; Start 07/15/18 at 09:00 Metoprolol Succinate (Toprol Xl) 25 mg DAILY PO ; Start 07/15/18 at 09:00 Fluticasone/ Vilanterol (Breo Ellipta 200-25 Mcg Inh) 1 inh DAILY INH ; Start 07/15/18 at 09:00 Potassium Chloride/Dextrose/ Sod Cl 1,000 ml @ 100 mls/hr Q10H IV Last administered on 07/15/18at 16:16; Admin Dose 100 MLS/HR; Start 07/15/18 at 15:30 Hydromorphone HCl (Dilaudid) 0.2 mg Q1H PRN IV BREAKTHROUGH PAIN; Start 07/15/18 at 15:30 Cefazolin Sodium 50 ml @ 100 mls/hr Q8H IVPB ; Start 07/15/18 at 17:00; Stop 07/16/18 at 09:29 Ondansetron HCl (Zofran Inj) 4 mg Q6H PRN IV NAUSEA AND/OR VOMITING; Start 07/15/18 at 15:30 Bisacodyl (Dulcolax Supp) 10 mg DAILY PRN [place] CONSTIPATION; Start 07/15/18 at 15:30 Docusate Sodium (Colace) 100 mg BID PO ; Start 07/15/18 at 21:00 Pantoprazole (Protonix Iv) 40 mg DAILY@06 IV ; Start 07/16/18 at 06:00 Al Hydrox/Mg Hydrox/Simethicone (Mag-Al Plus) 15 ml Q6H PRN PO CONSTIPATION; Start 07/15/18 at 15:30 Acetaminophen (Tylenol Tab) 650 mg Q4H PRN PO fever; Start 07/15/18 at 15:30 Cyclobenzaprine HCl (Flexeril) 10 mg TID PRN PO MUSCLE SPASMS; Start 07/15/18 at 15:30 Phenol (Cepastat Lozenge) 1 lozenge PRN PRN [place] SORE THROAT; Start 07/15/18 at 15:30 Diphenhydramine HCl (Benadryl) 25 mg Q6H PRN PO ITCHING; Start 07/15/18 at 15:30 Diphenhydramine HCl (Benadryl) 25 mg Q6H PRN IV ITCHING; Start 07/15/18 at 15:30 Naloxone HCl (Narcan) 0.2 mg Q2M PRN IV rr; Start 07/15/18 at 15:30 Hydromorphone HCl (Dilaudid FINISH REPAIR WORKER) FINISH REPAIR WORKER to be started in PACU Q4PCA IV Last administered on 07/15/18at 16:31; Admin Dose 6 MG; Start 07/15/18 at 15:30; Stop 07/17/18 at 10:00 Miscellaneous Information 1. Hold FINISH REPAIR WORKER at 1,000... FINISH REPAIR WORKER IV ; Start 07/15/18 at 15:30; Stop 07/17/18 at 10:00 GAGE CASTILLO MD Jul 15, 2018 17:27
[2018-07-15] MEDS: FLUTICASONE/VILANTEROL 100-25 INH SCH (17:30)
--- NOTE | 2018-07-15 19:26 | PAC ---
Date/Time of Note Date/Time of Note DATE: 07/15/18 TIME: 19:26 Post-Anesthesia Notes Post-Anesthesia Note Last documented vital signs Vital Signs Date Temp Pulse Resp B/P (MAP) Pulse Ox O2 O2 Flow FiO2 Time Delivery Rate 07/15/18 112 22 143/66 97 18:30 (91) 07/15/18 Nasal 2.0 18:00 Cannula 07/15/18 100.3 16:00 Activity: WNL Respiratory function: WNL Cardiovascular function: WNL Mental status: Baseline Pain reasonably controlled: Yes Hydration appropriate: Yes Nausea/Vomiting absent: Yes SKYLA SHELTON MD Jul 15, 2018 19:26
[2018-07-15] MEDS: TAMSULOSIN (SR) 0.4 MG CAP PO SCH (21:23)
[2018-07-15] MEDS: ATORVASTATIN 10 MG TAB PO SCH (21:24)
[2018-07-15] MEDS: METOPROLOL (XL) 25 MG TAB PO SCH (21:24)
[2018-07-15] MEDS: DOCUSATE SODIUM 100 MG CAP PO SCH (21:24)
[2018-07-16] VITALS (34 sets, daily range): BP systolic 77–151; BP diastolic 41–115; PULSE 90–116; RESP 11–28
[2018-07-16] MEDS: CEFAZOLIN 1 GM/50 ML (PMX) 50 ML IVPB SCH ×2 (00:46→09:08)
[2018-07-16] MEDS: D5W-0.45 NACL + KCL 20 MEQ 1,000 ML IV SCH ×4 (02:40→21:30)
[2018-07-16] MEDS: HYDROmorphONE 0.5 MG/0.5 ML SYG IV PRN ×5 (02:45→17:08)
[2018-07-16] MEDS: HYDROmorphONE 0.2 MG/ML PCA IV SCH ×3 (03:22→17:09)
[2018-07-16] MEDS: PANTOPRAZOLE 40 MG INJ IV SCH (05:40)
[2018-07-16] MEDS: DUTASTERIDE 0.5 MG CAP PO SCH (09:08)
[2018-07-16] MEDS: FINASTERIDE 5 MG TAB PO SCH (09:08)
[2018-07-16] MEDS: DOCUSATE SODIUM 100 MG CAP PO SCH ×2 (09:08→20:28)
[2018-07-16] MEDS: METOPROLOL (XL) 25 MG TAB PO SCH ×2 (09:09→20:29)
[2018-07-16] MEDS: FLUTICASONE/VILANTEROL 100-25 INH SCH (09:13)
--- NOTE | 2018-07-16 10:34 | PN ---
Date/Time of Note Date/Time of Note DATE: 07/16/18 TIME: 10:32 Assessment/Plan Lines/Catheters IV Catheter Type (from Nrsg): A Line Lares in Place (from Nrsg): Yes Assessment/Plan Assessment/Plan Status post lumbar fusion. Has back pain as expected. At times he is confused. No focal neurological deficits identified. He has mild left thigh numbness which is expected after this type of surgery. We will need to work with physical therapy. We will monitor his hematocrit level. If cleared by internal medicine he can transfer to the [facility]. Pathology from the lymph nodes are pending but disc pathology revealed: -- Fibrocartilage showing degenerative changes. -- Pseudogout. -- No evidence of malignancy. Subjective 24 Hr Interval Summary Complains of back pain and left thigh discomfort. Exam/Review of Systems Vital Signs Vitals Vital Signs Date Temp Pulse Resp B/P (MAP) Pulse Ox O2 O2 Flow FiO2 Time Delivery Rate 07/16/18 97 28 135/76 99 Room Air 09:00 (95) 07/16/18 99.3 08:00 07/15/18 30 21:04 07/15/18 2.0 20:00 Intake and Output 07/15/18 07/15/18 07/16/18 1515:00 23:00 07:00 IntakeIntake Total 3200 ml 1020 ml OutputOutput Total 430 ml 630 ml BalanceBalance 2770 ml 390 ml Exam Free Text/Dictation Neurovascularly intact. Results Result Diagram: 07/16/18 0300 07/16/18 0300 DEANNE NEWTON MD Jul 16, 2018 10:34
--- NOTE | 2018-07-16 13:03 | PN ---
Date/Time of Note Date/Time of Note DATE: 07/16/18 TIME: 13:00 Assessment/Plan VTE Prophylaxis Risk score (from Ns)>0 risk: 14 SCD applied (from Ns): Yes Pharmacological prophylaxis: NA/contraindicated Pharm contraindication: surgical contra Lines/Catheters IV Catheter Type (from Nrsg): A Line Urinary Cath still in place: Yes Reason Cath still needed: urinary retention Assessment/Plan Result Diagram: 07/16/18 0300 07/16/18 0300 Results 24hrs Laboratory Tests Test 07/16/18 03:00 White Blood Count 13.0 #H Red Blood Count 2.77 #L Hemoglobin 9.7 #L Hematocrit 28.1 #L Mean Corpuscular Volume 101.4 H Mean Corpuscular Hemoglobin 35.0 H Mean Corpuscular Hemoglobin Concent 34.5 Red Cell Distribution Width 13.1 Platelet Count 143 # Mean Platelet Volume 10.6 H Immature Granulocytes % 0.400 Neutrophils % 83.2 H Lymphocytes % 5.0 L Monocytes % 11.3 H Eosinophils % 0.0 Basophils % 0.1 Nucleated Red Blood Cells % 0.0 Immature Granulocytes # 0.050 H Neutrophils # 10.8 H Lymphocytes # 0.7 L Monocytes # 1.5 H Eosinophils # 0.0 Basophils # 0.0 Nucleated Red Blood Cells # 0.0 Sodium Level 139 Potassium Level 4.2 Chloride Level 107 Carbon Dioxide Level 21 Anion Gap 11 Blood Urea Nitrogen 12 Creatinine 0.57 L Est Glomerular Filtrat Rate mL/min Glucose Level 147 Calcium Level 8.5 Magnesium Level 2.0 Subjective 24 Hr Interval Summary Free Text/Dictation post second step surgery with abd midline incision. some confusion, thoevidently better. still using a lot of pain meds as is uncomforable. no resp complaints vs ok labs with mild drop in hemoglobin, wbc, chems ok lungs clear, abd soft, zully fluids ok ext, moves all four, not much leg pain ok to transfer to floor care, as already ok with dr nguyen Musculoskeletal: back pain Exam/Review of Systems Vital Signs Vitals Vital Signs Date Temp Pulse Resp B/P (MAP) Pulse Ox O2 O2 Flow FiO2 Time Delivery Rate 07/16/18 18 12:00 07/16/18 94 130/72 97 11:30 (91) 07/16/18 Room Air 11:00 07/16/18 99.3 08:00 07/15/18 30 21:04 07/15/18 2.0 20:00 Intake and Output 07/15/18 07/15/18 07/16/18 1515:00 23:00 07:00 IntakeIntake Total 3200 ml 1020 ml OutputOutput Total 430 ml 630 ml BalanceBalance 2770 ml 390 ml Medications Medications Current Medications Oxycodone/ Acetaminophen (Endocet (10/ 325)) 1 tab Q4H PRN PO PAIN LEVEL 1-5; Start 07/17/18 at 15:00 Metoclopramide HCl (Reglan) 10 mg ICU RECOVERY PRN IV NAUSEA AND/OR VOMITING; Start 07/14/18 at 15:30 Albuterol (Proventil 0.083% (Neb)) 2.5 mg ICU RECOVERY PRN HHN WHEEZING; Start 07/14/18 at 15:30 Oxycodone/ Acetaminophen (Endocet (10/ 325)) 2 tab Q4H PRN PO PAIN LEVEL 6-10; Start 07/17/18 at 15:00 Oxycodone/ Acetaminophen (Percocet (5/ 325)) 2 tab 0930 PO ; Start 07/17/18 at 09:30; Stop 07/17/18 at 09:31 Atorvastatin Calcium (Lipitor) 10 mg QHS PO Last administered on 07/15/18at 21:24; Admin Dose 10 MG; Start 07/14/18 at 21:00 Dutasteride (Avodart) 0.5 mg DAILY PO Last administered on 07/16/18at 09:08; Admin Dose 0.5 MG; Start 07/15/18 at 09:00 Potassium Chloride/Dextrose/ Sod Cl 1,000 ml @ 100 mls/hr Q10H IV Last administered on 07/16/18at 02:40; Admin Dose 100 MLS/HR; Start 07/15/18 at 15:30 Hydromorphone HCl (Dilaudid) 0.2 mg Q1H PRN IV BREAKTHROUGH PAIN Last administered on 07/16/18at 09:29; Admin Dose 0.2 MG; Start 07/15/18 at 15:30 Ondansetron HCl (Zofran Inj) 4 mg Q6H PRN IV NAUSEA AND/OR VOMITING; Start 07/15/18 at 15:30 Bisacodyl (Dulcolax Supp) [address] CONSTIPATION; Start 07/15/18 at 15:30 Docusate Sodium (Colace) 100 mg BID PO Last administered on 07/16/18at 09:08; Admin Dose 100 MG; Start 07/15/18 at 21:00 Pantoprazole (Protonix Iv) 40 mg DAILY@06 IV Last administered on 07/16/18at 05:40; Admin Dose 40 MG; Start 07/16/18 at 06:00 Al Hydrox/Mg Hydrox/Simethicone (Mag-Al Plus) 15 ml Q6H PRN PO CONSTIPATION; Start 07/15/18 at 15:30 Acetaminophen (Tylenol Tab) 650 mg Q4H PRN PO fever; Start 07/15/18 at 15:30 Cyclobenzaprine HCl (Flexeril) 10 mg TID PRN PO MUSCLE SPASMS; Start 07/15/18 at 15:30 Phenol (Cepastat Lozenge) 1 lozenge PRN PRN [place] SORE THROAT; Start 07/15/18 at 15:30 Diphenhydramine HCl (Benadryl) 25 mg Q6H PRN PO ITCHING Last administered on 07/15/18at 21:25; Admin Dose 25 MG; Start 07/15/18 at 15:30 Diphenhydramine HCl (Benadryl) 25 mg Q6H PRN IV ITCHING; Start 07/15/18 at 15:30 Naloxone HCl (Narcan) 0.2 mg Q2M PRN IV rr; Start 07/15/18 at 15:30 Hydromorphone HCl (Dilaudid HOSPITAL SUPERINTENDENT) HOSPITAL SUPERINTENDENT to be started in PACU Q4PCA IV Last administered on 07/16/18at 09:46; Admin Dose 6 MG; Start 07/15/18 at 15:30; Stop 07/17/18 at 10:00 Miscellaneous Information 1. Hold HOSPITAL SUPERINTENDENT at 1,000... HOSPITAL SUPERINTENDENT IV ; Start 07/15/18 at 15:30; Stop 07/17/18 at 10:00 Metoprolol Succinate (Toprol Xl) 25 mg BID PO Last administered on 07/16/18at 09:09; Admin Dose 25 MG; Start 07/15/18 at 21:00 Tamsulosin HCl (Flomax) 0.4 mg HS PO Last administered on 07/15/18at 21:23; Admin Dose 0.4 MG; Start 07/15/18 at 21:00 Finasteride (Proscar) 5 mg DAILY PO Last administered on 07/16/18at 09:08; Admin Dose 5 MG; Start 07/16/18 at 09:00 Fluticasone/ Vilanterol (Breo Ellipta 100-25 Mcg Inh) 1 inh DAILY INH Last administered on 07/16/18at 09:13; Admin Dose 1 INH; Start 07/15/18 at 17:30 JAN IRAHETA MD Jul 16, 2018 13:03
[2018-07-16] MEDS: ATORVASTATIN 10 MG TAB PO SCH (20:28)
[2018-07-16] MEDS: TAMSULOSIN (SR) 0.4 MG CAP PO SCH (20:28)
[2018-07-17] VITALS (8 sets, daily range): BP systolic 127–159; BP diastolic 70–84; PULSE 72–96; RESP 18–20
[2018-07-17] MEDS: HYDROmorphONE 0.2 MG/ML PCA IV SCH ×2 (00:13→07:52)
[2018-07-17] MEDS: D5W-0.45 NACL + KCL 20 MEQ 1,000 ML IV SCH (00:23)
[2018-07-17] MEDS: PANTOPRAZOLE 40 MG INJ IV SCH (05:44)
--- NOTE | 2018-07-17 08:03 | PN ---
Date/Time of Note Date/Time of Note DATE: 07/17/18 TIME: 08:02 Assessment/Plan Lines/Catheters IV Catheter Type (from Nrsg): Peripheral IV Lares in Place (from Nrsg): Yes Assessment/Plan Assessment/Plan Postop day 2 and 3 status post lumbar fusion L2-S1. Patient was transferred from ICU. We will need to monitor hematocrit. Will request acute rehab unit. Left anterior thigh discomfort is expected. Subjective 24 Hr Interval Summary Complains of back pain Exam/Review of Systems Vital Signs Vitals Vital Signs Date Temp Pulse Resp B/P (MAP) Pulse Ox O2 O2 Flow FiO2 Time Delivery Rate 07/17/18 16 04:47 07/17/18 96 98 21 03:30 07/17/18 98.0 143/84 Room Air 02:00 (103) 07/15/18 2.0 20:00 Intake and Output 07/16/18 07/16/18 07/17/18 1515:00 23:00 07:00 IntakeIntake Total 775 ml 2530 ml 350 ml OutputOutput Total 470 ml 710 ml 1180 ml BalanceBalance 305 ml 1820 ml -830 ml Exam Free Text/Dictation Mild left anterior thigh weakness and numbness. Results Result Diagram: 07/17/18 0457 07/17/18 0457 DEANNE NEWTON MD Jul 17, 2018 08:03
[2018-07-17] MEDS: FLUTICASONE/VILANTEROL 100-25 INH SCH ×2 (09:00→12:46)
[2018-07-17] MEDS: DUTASTERIDE 0.5 MG CAP PO SCH ×2 (09:00→12:47)
[2018-07-17] MEDS ORDERED: OXYCODONE/ACETAMINOPHEN (5/325) TAB PO SCH (09:30)
[2018-07-17] MEDS: FINASTERIDE 5 MG TAB PO SCH (09:42)
[2018-07-17] MEDS: DOCUSATE SODIUM 100 MG CAP PO SCH ×2 (09:42→20:42)
[2018-07-17] MEDS: METOPROLOL (XL) 25 MG TAB PO SCH ×2 (09:43→20:43)
[2018-07-17] MEDS: CYCLOBENZAPRINE 10 MG TAB PO PRN ×2 (12:51→18:56)
--- NOTE | 2018-07-17 13:55 | PN ---
Date/Time of Note Date/Time of Note DATE: 07/17/18 TIME: 13:52 Assessment/Plan VTE Prophylaxis Risk score (from Ns)>0 risk: 13 SCD applied (from Ns): Yes Pharmacological prophylaxis: heparin Lines/Catheters IV Catheter Type (from Nrs): Peripheral IV Urinary Cath still in place: Yes Reason Cath still needed: urinary retention Assessment/Plan Problems: (1) Status post lumbar spinal fusion Onset Date: ~ 07/15/2018 Status: Acute Comment: Recuperating and appropriate speed given the sequential surgeries and the amount of surgery that had to be done. Pain control is still bit of an issu e. Arrangements being made for him to have a bed hospital type in the downstairs area of his home (2) Status post lumbar and lumbosacral fusion by anterior technique Onset Date: ~ 07/14/2018 Status: Acute Comment: As above. (3) Obstructive sleep apnea Status: Chronic Comment: Nocturnal BiPAP successful (4) COPD (chronic obstructive pulmonary disease) Status: Chronic Comment: Stable on therapy. Qualifiers: COPD type: unspecified COPD Qualified Codes: J44.9 - Chronic obstructive pulmonary disease, unspecified (5) Hyperlipidemia Status: Chronic Comment: Maintain statin therapy Qualifiers: Hyperlipidemia type: pure hypercholesterolemia Qualified Codes: E78.00 - Pure hypercholesterolemia, unspecified (6) Benign prostatic hyperplasia Status: Chronic Comment: Use 1 5 alpha reductase inhibitor, the Avodart since that is what he had at home resume the doxazosin and we can get rid of the tamsulosin tomorrow Qualifiers: Lower urinary tract symptom presence: symptoms present Lower urinary tract symptom detail: urinary hesitancy Qualified Codes: N40.1 - Benign prostatic hyperplasia with lower urinary tract symptoms; R39.11 - Hesitancy of micturition (7) Essential hypertension Status: Chronic Comment: Resume alpha-kun therapy (8) Coronary artery disease Status: Chronic Comment: Quiescent fortunately Qualifiers: Coronary Disease-Associated Artery/Lesion type: [place] artery [place] vs. transplanted heart: [place] heart Associated angina: without angina Qualified Codes: I25.10 - Atherosclerotic heart disease of [place] coronary artery without angina pectoris (9) Postoperative anemia due to acute blood loss Status: Acute Comment: Noted. Will follow Result Diagram: 07/17/18 0457 07/17/18 0457 Results 24hrs Laboratory Tests Test 07/17/18 04:57 White Blood Count 11.9 H Red Blood Count 2.65 L Hemoglobin 9.2 L Hematocrit 26.5 L Mean Corpuscular Volume 100.0 Mean Corpuscular Hemoglobin 34.7 H Mean Corpuscular Hemoglobin Concent 34.7 Red Cell Distribution Width 12.8 Platelet Count 122 L Mean Platelet Volume 10.0 Immature Granulocytes % 0.300 Neutrophils % 82.6 H Lymphocytes % 6.1 L Monocytes % 10.9 Eosinophils % 0.0 Basophils % 0.1 Nucleated Red Blood Cells % 0.0 Immature Granulocytes # 0.040 H Neutrophils # 9.8 H Lymphocytes # 0.7 L Monocytes # 1.3 H Eosinophils # 0.0 Basophils # 0.0 Nucleated Red Blood Cells # 0.0 Sodium Level 130 L Potassium Level 4.4 Chloride Level 95 #L Carbon Dioxide Level 29 Anion Gap 6 Blood Urea Nitrogen 6 L Creatinine 0.51 L Est Glomerular Filtrat Rate mL/min Glucose Level 126 Calcium Level 8.7 Magnesium Level 2.0 Subjective 24 Hr Interval Summary Free Text/Dictation Patient is up to bathroom with assistance. Constitutional: no complaints Respiratory: no complaints Cardiovascular: no complaints Gastrointestinal: no complaints Exam/Review of Systems Vital Signs Vitals Vital Signs Date Temp Pulse Resp B/P (MAP) Pulse Ox O2 O2 Flow FiO2 Time Delivery Rate 07/17/18 16 11:37 07/17/18 99.1 87 154/73 90 Room Air 08:21 (100) 07/17/18 21 03:30 07/15/18 2.0 20:00 Intake and Output 07/16/18 07/16/18 07/17/18 1515:00 23:00 07:00 IntakeIntake Total 775 ml 2530 ml 350 ml OutputOutput Total 470 ml 710 ml 1180 ml BalanceBalance 305 ml 1820 ml -830 ml Exam Constitutional: alert Respiratory: clear to auscultation, normal air movement Cardiovascular: regular rate and rhythm, nl pulses Gastrointestinal: soft, nl liver, spleen, non-tender Medications Medications Current Medications Oxycodone/ Acetaminophen (Endocet (10/ 325)) 1 tab Q4H PRN PO PAIN LEVEL 1-5; Start 07/17/18 at 15:00 Metoclopramide HCl (Reglan) 10 mg ICU RECOVERY PRN IV NAUSEA AND/OR VOMITING; Start 07/14/18 at 15:30 Albuterol (Proventil 0.083% (Neb)) 2.5 mg ICU RECOVERY PRN HHN WHEEZING; Start 07/14/18 at 15:30 Oxycodone/ Acetaminophen (Endocet (10/ 325)) 2 tab Q4H PRN PO PAIN LEVEL 6-10; Start 07/17/18 at 15:00 Atorvastatin Calcium (Lipitor) 10 mg QHS PO Last administered on 07/16/18at 20:28; Admin Dose 10 MG; Start 07/14/18 at 21:00 Dutasteride (Avodart) 0.5 mg DAILY PO Last administered on 07/17/18at 12:47; Admin Dose 0.5 MG; Start 07/15/18 at 09:00 Potassium Chloride/Dextrose/ Sod Cl 1,000 ml @ 100 mls/hr Q10H IV Last administered on 07/17/18at 00:23; Admin Dose 100 MLS/HR; Start 07/15/18 at 15:30 Hydromorphone HCl (Dilaudid) 0.2 mg Q1H PRN IV BREAKTHROUGH PAIN Last administered on 07/16/18at 17:08; Admin Dose 0.2 MG; Start 07/15/18 at 15:30 Ondansetron HCl (Zofran Inj) 4 mg Q6H PRN IV NAUSEA AND/OR VOMITING; Start 07/15/18 at 15:30 Bisacodyl (Dulcolax Supp) 10 mg DAILY PRN [place] CONSTIPATION; Start 07/15/18 at 15:30 Docusate Sodium (Colace) 100 mg BID PO Last administered on 07/17/18at 09:42; Admin Dose 100 MG; Start 07/15/18 at 21:00 Pantoprazole (Protonix Iv) 40 mg DAILY@06 IV Last administered on 07/17/18at 05:44; Admin Dose 40 MG; Start 07/16/18 at 06:00 Al Hydrox/Mg Hydrox/Simethicone (Mag-Al Plus) 15 ml Q6H PRN PO CONSTIPATION; Start 07/15/18 at 15:30 Acetaminophen (Tylenol Tab) 650 mg Q4H PRN PO fever; Start 07/15/18 at 15:30 Cyclobenzaprine HCl (Flexeril) 10 mg TID PRN PO MUSCLE SPASMS Last administered on 07/17/18at 12:51; Admin Dose 10 MG; Start 07/15/18 at 15:30 Phenol (Cepastat Lozenge) 1 lozenge PRN PRN MT SORE THROAT; Start 07/15/18 at 15:30 Diphenhydramine HCl (Benadryl) 25 mg Q6H PRN PO ITCHING Last administered on 07/15/18at 21:25; Admin Dose 25 MG; Start 07/15/18 at 15:30 Diphenhydramine HCl (Benadryl) 25 mg Q6H PRN IV ITCHING; Start 07/15/18 at 15:3 0 Naloxone HCl (Narcan) 0.2 mg Q2M PRN IV rr; Start 07/15/18 at 15:30 Metoprolol Succinate (Toprol Xl) 25 mg BID PO Last administered on 07/17/18at 09:43; Admin Dose 25 MG; Start 07/15/18 at 21:00 Tamsulosin HCl (Flomax) 0.4 mg HS PO Last administered on 07/16/18at 20:28; Admin Dose 0.4 MG; Start 07/15/18 at 21:00 Fluticasone/ Vilanterol (Breo Ellipta 100-25 Mcg Inh) 1 inh DAILY INH Last administered on 07/17/18at 12:46; Admin Dose 1 INH; Start 07/15/18 at 17:30 Doxazosin Mesylate (Cardura) 4 mg HS PO ; Start 07/17/18 at 21:00; Status GAGE CORTEZ MD Jul 17, 2018 13:55
[2018-07-17] MEDS ORDERED: OXYCODONE/ACETAMINOPHEN (10/325) TAB PO PRN (15:00)
[2018-07-17] MEDS: OXYCODONE/ACETAMINOPHEN (10/325) TAB PO PRN ×2 (16:19→21:39)
[2018-07-17] MEDS: TAMSULOSIN (SR) 0.4 MG CAP PO SCH (20:42)
[2018-07-17] MEDS: ATORVASTATIN 10 MG TAB PO SCH (20:42)
[2018-07-17] MEDS ORDERED: DOXAZOSIN 4 MG TAB PO SCH (21:00)
--- NOTE | 2018-07-18 13:42 | DS ---
Date/Time of Note Date/Time of Note DATE: 07/18/18 TIME: 13:41 Discharge Summary Admission/Discharge Info Admit Date/Time Jul 14, 2018 at 09:18 Discharge Date/Time Jul 17, 2018 at 22:20 Patient Condition: Fair Procedures Lumbar fusion Hospital Course Patient was admitted to the ICU after undergoing stage I. He returned to the operating room the following day and was readmitted to the ICU after stage II. The next day he was admitted to the [facility]. By July 17 he was deemed stable to be discharged to the acute rehab center where he will be followed by the undersigned. Home Meds Reported Medications Aspirin (Low Dose Aspirin) 81 Mg Tablet.dr, 81 MG PO DAILY, #30 TAB 07/14/18 Dutasteride* (Avodart*) 0.5 Mg Capsule, 0.5 MG PO DAILY, CAP 07/14/18 Metoprolol Succinate* (Toprol XL*) 25 Mg Tab.sr.24h, 25 MG PO DAILY, #30 TAB 07/14/18 Cyclobenzaprine Hcl* (Cyclobenzaprine Hcl*) 10 Mg Tablet, 10 MG PO BID PRN for MUSCLE SPASMS, #60 TAB 07/14/18 Doxazosin Mesylate* (Doxazosin Mesylate*) 8 Mg Tablet, 8 MG PO HS, TAB 07/14/18 Atorvastatin Calcium (Atorvastatin Calcium) 10 Mg Tablet, 10 MG PO QHS, #30 TAB 07/14/18 Discontinued Reported Medications Hydrocodone Bit-Acetaminophen* ([place]*) 10-325 Mg Tablet, 1 TAB PO Q4H PRN for PAIN, TAB 05/03/15 Carvedilol* (Coreg*) 3.125 Mg Tablet, 3.125 MG PO BID, TAB 05/03/15 Dutasteride* (Avodart*) 0.5 Mg Capsule, 0.5 MG PO DAILY, CAP 05/03/15 Cyclobenzaprine Hcl* (Cyclobenzaprine Hcl*) 10 Mg Tablet, 10 MG PO BID, TAB 05/03/15 Doxazosin Mesylate* (Doxazosin Mesylate*) 4 Mg Tablet, 4 MG PO DAILY, TAB 05/03/15 Lovastatin* (Lovastatin*) 20 Mg Tablet, 20 MG PO HS, TAB 05/03/15 Gabapentin* (Neurontin*) 300 Mg Capsule, 300 MG PO BID, CAP 05/03/15 Primary Care Provider Not On Staff Doctor DEANNE NEWTON MD Jul 18, 2018 13:42
== END 2018-07-17 22:20 | DRG 454 ==
LOC: REC 09:18 → ICU 15:31 → MS1 07-16 22:29
PROVIDERS: ADMIT Specialist; ATTEND Specialist
PROC: 0SB20ZZ Excision of Lumbar Vertebral Disc, Open Approach (ICD-10-PCS; 2018-07-14)
PROC: 4A11X4G Monitoring of Peripheral Nervous Electrical Activity, Intraoperative, External Approach (ICD-10-PCS; 2018-07-14)
PROC: 0SG10A0 Fusion of 2 or more Lumbar Vertebral Joints with Interbody Fusion Device, Anterior Approach, Anterior Column, Open Approach (ICD-10-PCS; principal; 2018-07-14 12:00)
PROC: 0SG30AJ Fusion of Lumbosacral Joint with Interbody Fusion Device, Posterior Approach, Anterior Column, Open Approach (ICD-10-PCS; 2018-07-15)
PROC: 0SG00AJ Fusion of Lumbar Vertebral Joint with Interbody Fusion Device, Posterior Approach, Anterior Column, Open Approach (ICD-10-PCS; 2018-07-15)
PROC: 0SG3071 Fusion of Lumbosacral Joint with Autologous Tissue Substitute, Posterior Approach, Posterior Column, Open Approach (ICD-10-PCS; 2018-07-15)
PROC: 0SB40ZZ Excision of Lumbosacral Disc, Open Approach (ICD-10-PCS; 2018-07-15)
PROC: 0SB20ZZ Excision of Lumbar Vertebral Disc, Open Approach (ICD-10-PCS; 2018-07-15)
PROC: 4A11X4G Monitoring of Peripheral Nervous Electrical Activity, Intraoperative, External Approach (ICD-10-PCS; 2018-07-15)
PROC: 0SG1071 Fusion of 2 or more Lumbar Vertebral Joints with Autologous Tissue Substitute, Posterior Approach, Posterior Column, Open Approach (ICD-10-PCS; 2018-07-15 07:00)
DX: M41.86 Other forms of scoliosis, lumbar region (principal); D62 Acute posthemorrhagic anemia; M51.16 Intervertebral disc disorders with radiculopathy, lumbar region; I10 Essential (primary) hypertension; E78.5 Hyperlipidemia, unspecified; I25.10 Atherosclerotic heart disease of native coronary artery without angina pectoris; N40.1 Benign prostatic hyperplasia with lower urinary tract symptoms; R39.11 Hesitancy of micturition; J44.9 Chronic obstructive pulmonary disease, unspecified; G47.33 Obstructive sleep apnea (adult) (pediatric); R41.0 Disorientation, unspecified
CPT/HCPCS: 71045; 72020; 72100; 72110; 80048; 83735; 85025; 86850; 86900; 86901; 86920; 86999; 87081; 88184; 88185; 88304; 88307; 88331; 88341; 88342; 88374; 94660; 97110; 97116; 97163; 97530; C1713; C9113; J0360; J0690; J1100; J1170; J1200; J1644; J2250; J2270; J2405; J2765; J3010; J3480; P9047

== ENCOUNTER 2018-07-17 23:00 | Inpatient (IN) | payer MEDICARE, BC ==
[~2018-07-17] VITALS: Ht 167.6 cm; Wt 85.1 kg
[~2018-07-17 23:00] MED LIST changes: +ASPI81TA52 PO; +ATOR10TA65 PO; -CARV3.12 PO; -DESFLURANE 15 MIN ONE; -DOXA4TAB3 PO; +DOXA8TAB65 PO; -GABA300C PO; -HYDR-762 PO; -LOVA20TA PO; +METO-335 PO
[2018-07-17 23:14] VITALS: Ht 167.6 cm; Wt 85.1 kg
--- NOTE | 2018-07-17 23:30 | NUR ---
Pt came via bed with transport in stable condition. Pt with rehab diagnosis of Other neurologic condition S/P L2-L5 spinal decompression. Pt is alert & oriented x3, able to make needs known. Pt noted vitals WNL. He has a spinal incision on his back. Dressing clean dry and intact. Pt is continent both bowel and bladder and able to use urinal. Per report, last BM is 07/13/18. Offered laxative, per pt he will take it in the morning. Safety measures in place. Spinal precautions observed per protocol. Called Dr. Terrazas twice for verification of admission orders. Still awaiting for call back. Will continue to monitor patient.
[2018-07-18] MEDS ORDERED: ALBUTEROL 0.083% (NEB) 2.5 MG/3 ML AMP INH PRN (01:30)
[2018-07-18] MEDS ORDERED: BISACODYL 10 MG SUPP PR PRN (01:30)
[2018-07-18] MEDS ORDERED: ONDANSETRON 4 MG INJ IV PRN (01:30)
[2018-07-18] MEDS ORDERED: CEPASTAT LOZENGE MT PRN (01:30)
[2018-07-18] MEDS ORDERED: DIPHENHYDRAMINE 25 MG CAP PO PRN (01:30)
[2018-07-18] MEDS ORDERED: MAGNESIUM HYDROXIDE 30ML CUP PO PRN (01:30)
[2018-07-18] MEDS ORDERED: ACETAMINOPHEN 325 MG TAB PO PRN (01:30)
[2018-07-18] MEDS ORDERED: AL HYDROX/MG HYDROX/SIMETH 30 ML CUP PO PRN (01:30)
[2018-07-18] MEDS ORDERED: LACTULOSE 30ML CUP PO PRN ×2 (01:30→12:30)
[2018-07-18 02:00] VITALS: BP 114/61; PULSE 82; RESP 20
[2018-07-18] MEDS: OXYCODONE/ACETAMINOPHEN (10/325) TAB PO PRN (04:25)
[2018-07-18] MEDS ORDERED: PANTOPRAZOLE 40 MG INJ IV SCH (06:00)
[2018-07-18 07:00] VITALS: BP 15/65; PULSE 82; RESP 17
--- NOTE | 2018-07-18 07:00 | NUR ---
Called Dr Gregorio and spoke with on-call Dr. Boyd. Verified admission orders. Orders noted and carried out.
[2018-07-18] MEDS: HYDROmorphONE 0.5 MG/0.5 ML SYG IV PRN ×2 (08:07→12:12)
--- NOTE | 2018-07-18 11:02 | NUR ---
PT EVALUATION: A 77 yo male admitted d/t chronic LBP for quite some time, had Lt L5-S1 microdiscectomy in 2015, has also been getting epidural injections. Pt s/p anterior lumbar interbody fusion lateral L2-L3, L3-L4 on 07/14/[address] Terrazas. PMH: peripheral neuropathy, obstructive sleep apnea, CHF, COPD, hyperlipidemia, BPH, HTN, CAD, SD, PTCA/stent, dyslipidemia. Now transferred to [facility] for continuation of care and rehab. Pt is alert and oriented, agreeable to PT eval, cleared by RN. PLOF: per pt report-lives in a 2 story house with 1 flight of stairs inside and no entry steps. Lives with spouse and son. Pt was independent with gait and ADL's. Reports owning a FWW ("only 90% sure," asked to clarify with spouse if pt does owns FWW). Reports having help "sometimes." Spouse works everyday from 7a-2p, Son mostly at home in the morning but "leaves to take care of a paralyzed teacher." Pt reports that once he gets discharge to home, his plan is to sleep in a room on the first floor, has a full bathroom. Spouse reports that he will get a bed placed on the 1st floor, "my is working on it." CLOF: see tech record. Educ on POC, safety, role of PT, spine prec, LSO brace when OOB with fair understanding. Precautions: fall risk, spine precautions, LSO on at all times when OOB, monitor VS. Recommendations: TBD, home with HHPT STG: Bed Mobility CGA Transfers CGA FWW Gait CGA 50ft FWW LTG: Bed Mobility SUP Transfers SUP FWW Gait SUP/SBA 100ft FWW
[2018-07-18] MEDS ORDERED: HYDROmorphONE 0.5 MG/0.5 ML SYG IV PRN (12:30)
[2018-07-18] MEDS: DUTASTERIDE 0.5 MG CAP PO SCH (12:43)
[2018-07-18] MEDS: FLUTICASONE/VILANTEROL 100-25 INH SCH (12:44)
[2018-07-18] MEDS: PANTOPRAZOLE (EC) 40 MG TAB PO SCH (12:44)
[2018-07-18] MEDS: DOCUSATE SODIUM 100 MG CAP PO SCH ×2 (12:45→20:53)
[2018-07-18] MEDS: METOPROLOL (XL) 25 MG TAB PO SCH ×2 (12:45→20:55)
[2018-07-18] MEDS ORDERED: BISACODYL (EC) 5 MG TAB PO PRN (13:00)
[2018-07-18] MEDS: HYDROmorphONE 1 MG/ML SYG IV PRN ×5 (13:08→23:03)
--- NOTE | 2018-07-18 13:14 | CONS ---
DATE OF ADMISSION: 07/17/2018 DATE OF CONSULTATION: 07/18/2018 REHABILITATION POST-ADMISSION PHYSICIAN EVALUATION REHABILITATION IMPAIRMENT CATEGORY: Lumbar radiculopathy status post decompression and fusion. ACTIVE COMORBIDITIES: 1. Acute pain syndrome. 2. Chronic obstructive pulmonary disease. 3. Sleep apnea. 4. Hyperlipidemia. 5. Hypertension. 6. Benign prostatic hypertrophy. 7. Coronary artery disease. 8. Anemia. 9. Constipation. 10. Impairments in self-care and mobility. HISTORY OF PRESENT ILLNESS: The patient is a pleasant 77-year-old gentleman with a history of lumbar radiculopathy and previous microdiskectomy who had been noting increasing radiating low back pain de spite conservative measures. The patient underwent a lumbar decompression and fusion. The patient's postoperative course was notable for pain, constipation, anemia, and significant impairments in self -care and mobility as compared to baseline. The patient has been cleared to transfer to the rehabili tation unit for comprehensive interdisciplinary rehab care. FUNCTIONAL HISTORY: Prior to recent events, he was independent in self-care tasks and mobility. Cur rently, he requires moderate to maximal assist for self-care and mobility tasks. I have reviewed the preadmission screen and the patient's current functional status is consistent wit h the preadmission screen. FAMILY AND SOCIAL HISTORY: The patient lives at home and hopes to return there upon discharge. PAST MEDICAL HISTORY: 1. COPD. 2. Sleep apnea. 3. Hyperlipidemia. 4. Hypertension. 5. BPH. 6. Coronary artery disease. 7. Lumbar radiculopathy as above. CURRENT MEDICATIONS: 1. Lipitor 10 mg p.o. at bedtime. 2. Flexeril 10 mg p.o. t.i.d. 3. Cardura 4 mg p.o. at bedtime. 4. Avodart 0.5 mg p.o. daily. 5. Breo inhaler. 6. Dilaudid p.r.n. 7. Toprol-XL 25 mg p.o. b.i.d. 8. Endocet p.r.n. 9. Flomax 0.4 mg p.o. at bedtime. ALLERGIES: The patient with no known drug allergies. PHYSICAL EXAMINATION: VITAL SIGNS: The patient is currently afebrile with stable vital signs. HEENT: The extraocular motions are intact. Oropharynx clear. NECK: Supple. LUNGS: Clear anteriorly. CARDIAC: S1, S2. ABDOMEN: Soft, nontender, positive bowel sounds. NEUROLOGIC: He is awake and alert. He is oriented x3. He will follow simple 1-step commands. He d emonstrates antigravity strength in bilateral upper extremities. He has antigravity strength in bila teral lower extremities. PLAN: The patient has been admitted for comprehensive interdisciplinary acute rehab and is anticipat ed to tolerate 3 hours of daily therapy in divided doses for at least 5/7 days a week. The treatment plan will include: 1. Physical therapy to focus on bed mobility, transfers, and household ambulation with the goal of h aving the patient reach a standby to supervised level. 2. Occupational therapy to focus on hygiene, grooming, dressing, bathing, and toileting activities w ith goal of having the patient reach a standby to supervised level. 3. Rehabilitation nursing for carryover of therapeutic interventions, the goal of continent of bowel and bladder, and the goal of pain adequately managed on oral medications. REHABILITATION BARRIER: Pain. INTERVENTION FOR BARRIER: Interdisciplinary approach. ESTIMATED LENGTH OF STAY: 10 days. DISPOSITION GOAL: Home. I acknowledge that I performed a full physical examination on this patient within 24 hours of admissi on to the rehabilitation unit. I believe the patient is a good candidate for comprehensive interdisc iplinary rehab care and is anticipated to make reasonable goals in a reasonable period of time as out lined above. Dictated By: KINA WILL MD LY/NTS Conf#: [id number] DID#: [id number] CC: DEANNE NEWTON MD;*EndCC*
--- NOTE | 2018-07-18 13:45 | PN ---
Date/Time of Note Date/Time of Note DATE: 07/18/18 TIME: 13:45 Assessment/Plan Lines/Catheters IV Catheter Type (from Nrsg): Saline Lock Lares in Place (from Nrsg): No Assessment/Plan Assessment/Plan Continue with pain control. Will prescribe a dose of Toradol to see if that helps. Continue with dressing changes. May shower. Watch hematocrit. I will contact Dr. rGegorio Subjective 24 Hr Interval Summary Patient reports back pain Exam/Review of Systems Vital Signs Vitals Vital Signs Date Temp Pulse Resp B/P (MAP) Pulse Ox O2 O2 Flow FiO2 Time Delivery Rate 07/18/18 97.9 82 17 15/65 (49) 94 Room Air 07:00 Intake and Output 07/17/18 07/17/18 07/18/18 1515:00 23:00 07:00 OutputOutput Total 350 ml 280 ml BalanceBalance -350 ml -280 ml Exam Free Text/Dictation Mild drainage from posterior incision Results Result Diagram: 07/18/18 0624 07/18/18 0624 DEANNE NEWTON MD Jul 18, 2018 13:45
[2018-07-18 14:00] VITALS: BP 107/53; PULSE 100; RESP 16
[2018-07-18] MEDS: KETOROLAC 30 MG INJ IM STA ×2 (14:59→15:01)
--- NOTE | 2018-07-18 16:37 | PN ---
Date/Time of Note Date/Time of Note DATE: 07/18/18 TIME: 16:34 Assessment/Plan VTE Prophylaxis Pharmacological prophylaxis: NA/contraindicated Pharm contraindication: surgical contra Lines/Catheters IV Catheter Type (from Nrs): Saline Lock Urinary Cath still in place: No Assessment/Plan Result Diagram: 07/18/18 0624 07/18/18 0624 Results 24hrs Laboratory Tests Test 07/17/18 23:45 07/18/18 06:24 Urine Color YELLOW Urine Clarity CLEAR Urine pH 6.0 Urine Specific [place] 1.008 Urine Ketones 1+ H Urine Nitrite NEGATIVE Urine Bilirubin NEGATIVE Urine Urobilinogen NEGATIVE Urine Leukocyte Esterase NEGATIVE Urine Microscopic RBC 0 Urine Microscopic WBC 1 Urine Hemoglobin 1+ H Urine Glucose NEGATIVE Urine Total Protein NEGATIVE White Blood Count 8.0 # Red Blood Count 2.28 L Hemoglobin 7.8 L Hematocrit 22.4 L Mean Corpuscular Volume 98.2 Mean Corpuscular Hemoglobin 34.2 H Mean Corpuscular Hemoglobin Concent 34.8 Red Cell Distribution Width 12.4 Platelet Count 135 L Mean Platelet Volume 9.6 Immature Granulocytes % 0.500 H Neutrophils % 80.6 H Lymphocytes % 9.1 L Monocytes % 9.6 Eosinophils % 0.2 Basophils % 0.0 Nucleated Red Blood Cells % 0.0 Immature Granulocytes # 0.040 H Neutrophils # 6.5 Lymphocytes # 0.7 L Monocytes # 0.8 Eosinophils # 0.0 Basophils # 0.0 Nucleated Red Blood Cells # 0.0 Sodium Level 132 L Potassium Level 3.6 Chloride Level 98 Carbon Dioxide Level 27 Anion Gap 7 Blood Urea Nitrogen 10 Creatinine 0.52 L Est Glomerular Filtrat Rate mL/min Glucose Level 105 Calcium Level 8.4 Total Bilirubin 0.7 Direct Bilirubin 0.00 Indirect Bilirubin 0.7 Aspartate Amino Transf (AST/SGOT) 61 H Alanine Aminotransferase (ALT/SGPT) 48 Alkaline Phosphatase 49 Total Protein 5.1 L Albumin 2.9 L Globulin 2.20 Albumin/Globulin Ratio 1.31 Subjective 24 Hr Interval Summary Free Text/Dictation he is post ant post spinal surgery, fusion. having a lot of pain despite regular dosing of pain meds.pain is in the back, not the legs voiding ok without anders on meds on exam alert and fluent. extensive bruising back and left flank area, may parti ally explain some of the pain lungs clear, hr ok, no edema Musculoskeletal: back pain Exam/Review of Systems Vital Signs Vitals Vital Signs Date Temp Pulse Resp B/P (MAP) Pulse Ox O2 O2 Flow FiO2 Time Delivery Rate 07/18/18 98.1 100 16 107/53 97 Room Air 14:00 (71) Intake and Output 07/17/18 07/17/18 07/18/18 1515:00 23:00 07:00 OutputOutput Total 350 ml 280 ml BalanceBalance -350 ml -280 ml Medications Medications Current Medications Phenol (Cepastat Lozenge) 1 lozenge PRN PRN MT SORE THROAT; Start 07/18/18 at 01:30 Tamsulosin HCl (Flomax) 0.4 mg DAILY@21 PO ; Start 07/18/18 at 21:00 Dutasteride (Avodart) 0.5 mg DAILY PO Last administered on 07/18/18at 12:43; Admin Dose 0.5 MG; Start 07/18/18 at 09:00 Fluticasone/ Vilanterol (Breo Ellipta 100-25 Mcg Inh) 1 inh DAILY INH Last administered on 07/18/18at 12:44; Admin Dose 1 INH; Start 07/18/18 at 09:00 Metoprolol Succinate (Toprol Xl) 25 mg BID PO Last administered on 07/18/18at 12:45; Admin Dose 25 MG; Start 07/18/18 at 09:00 Ondansetron HCl (Zofran Inj) 4 mg Q6H PRN IV NAUSEA AND/OR VOMITING; Start 07/18/18 at 01:30 Oxycodone/ Acetaminophen (Endocet (10/ 325)) 1 tab Q4H PRN PO MODERATE PAIN LEVEL 4-6; Start 07/18/18 at 01:30 Oxycodone/ Acetaminophen (Endocet (10/ 325)) 2 tab Q4H PRN PO MODERATE PAIN LEVEL 4-6 Last administered on 07/18/18at 04:25; Admin Dose 2 TAB; Start 07/18/18 at 01:30 Acetaminophen (Tylenol Tab) 650 mg Q4H PRN PO MILD PAIN(1-3)OR ELEVATED TEMP; Start 07/18/18 at 01:30 Al Hydrox/Mg Hydrox/Simethicone (Mag-Al Plus) 15 ml Q6H PRN PO GASTROINTESTINAL UPSET; Start 07/18/18 at 01:30 Atorvastatin Calcium (Lipitor) 10 mg DAILY@21 PO ; Start 07/18/18 at 21:00 Bisacodyl (Dulcolax Supp) 10 mg DAILY PRN [place] CONSTIPATION; Start 07/18/18 at 01:30 Cyclobenzaprine HCl (Flexeril) 10 mg TID PRN PO MUSCLE SPASMS; Start 07/18/18 at 01:30 Diphenhydramine HCl (Benadryl) 25 mg Q6H PRN PO ALLERGIC REACTION; Start 07/18/18 at 01:30 Docusate Sodium (Colace) 100 mg BID PO Last administered on 07/18/18at 12:45; Admin Dose 100 MG; Start 07/18/18 at 09:00 Doxazosin Mesylate (Cardura) 4 mg HS PO ; Start 07/18/18 at 21:00 Senna (Senokot) 1 tab HS PO ; Start 07/18/18 at 21:00 Magnesium Hydroxide (Milk Of Mag) 30 ml BID PRN PO CONSTIPATION; Start 07/18/18 at 01:30 Pantoprazole (Protonix Tab) 40 mg DAILY@06 PO Last administered on 07/18/18at 12:44; Admin Dose 40 MG; Start 07/18/18 at 07:00 Hydromorphone HCl (Dilaudid) 1 mg Q2H PRN IV SEVERE PAIN LEVEL 7-10 Last administered on 07/18/18at 13:08; Admin Dose 1 MG; Start 07/18/18 at 12:30 Lactulose (Enulose) 10 gm DAILY PRN PO CONSTIPATION; Start 07/18/18 at 12:30 Bisacodyl (Dulcolax) 10 mg DAILY PRN PO CONSTIPATION; Start 07/18/18 at 13:00 JAN IRAHETA MD Jul 18, 2018 16:37
--- NOTE | 2018-07-18 19:00 | NUR ---
Nursing notes: RN offered patient Lactulose or MOM but refused, stated he will take it tonight, Endorsed to GHANSHYAM Alonzo to give Laudative medication . Dr. Duncan aware that patient refusing laxative medications.
[2018-07-18 19:33] VITALS: BP 112/62; PULSE 85; RESP 18
--- NOTE | 2018-07-18 20:30 | NUR ---
Pt made aware and explained of his order of therapeutic outing. He refused his laxative but took his senokot and colace, stated will take his Lactulose in AM.
[2018-07-18] MEDS: SENNA TAB PO SCH (20:54)
[2018-07-18] MEDS: ATORVASTATIN 10 MG TAB PO SCH (20:54)
[2018-07-18] MEDS: TAMSULOSIN (SR) 0.4 MG CAP PO SCH (20:54)
[2018-07-18] MEDS: DOXAZOSIN 4 MG TAB PO SCH (21:58)
[2018-07-19 02:00] VITALS: BP 105/67; PULSE 88; RESP 18
[2018-07-19] MEDS: HYDROmorphONE 1 MG/ML SYG IV PRN ×3 (02:00→10:25)
[2018-07-19] MEDS: CYCLOBENZAPRINE 10 MG TAB PO PRN ×3 (03:03→18:30)
--- NOTE | 2018-07-19 06:21 | NUR ---
Medicated for back pain prn as ordered with good effect. Voiding using the urinal. Needs attended. Resp unlabored. Slept on and off. Call light within reached. Bed alarm is activated. No acute distress noted.
[2018-07-19] MEDS: PANTOPRAZOLE (EC) 40 MG TAB PO SCH (07:12)
[2018-07-19 07:30] VITALS: BP 138/66; PULSE 79; RESP 20
[2018-07-19] MEDS: OXYCODONE/ACETAMINOPHEN (10/325) TAB PO PRN ×4 (07:30→20:18)
[2018-07-19] MEDS: DOCUSATE SODIUM 100 MG CAP PO SCH ×2 (08:02→20:19)
[2018-07-19] MEDS: DUTASTERIDE 0.5 MG CAP PO SCH (08:02)
[2018-07-19] MEDS: METOPROLOL (XL) 25 MG TAB PO SCH ×2 (08:03→20:18)
[2018-07-19] MEDS: FLUTICASONE/VILANTEROL 100-25 INH SCH (08:03)
[2018-07-19 14:00] VITALS: BP 110/64; RESP 18
--- NOTE | 2018-07-19 18:16 | NUR ---
Pt has participated in therapies. Pain management requires medication every3-4 hours. back dressing C/D/I. pt had a BM today post constipation. VSS.
[2018-07-19 19:49] VITALS: BP 119/58; PULSE 80; RESP 18
[2018-07-19] MEDS: TAMSULOSIN (SR) 0.4 MG CAP PO SCH (20:17)
[2018-07-19] MEDS: ATORVASTATIN 10 MG TAB PO SCH (20:17)
[2018-07-19] MEDS: SENNA TAB PO SCH (20:19)
--- NOTE | 2018-07-19 20:42 | PN ---
Date/Time of Note Date/Time of Note DATE: 07/19/18 TIME: 20:40 Assessment/Plan VTE Prophylaxis Risk score (from Ns)>0 risk: 7 SCD applied (from Ns): Yes SCD contraindicated: low risk/ambulating Pharmacological prophylaxis: heparin Lines/Catheters IV Catheter Type (from Nrs): Saline Lock Urinary Cath still in place: No Assessment/Plan Problems: (1) Status post lumbar and lumbosacral fusion by anterior technique Onset Date: ~ 07/14/2018 Status: Acute Comment: Progressing well. (2) Status post lumbar spinal fusion Onset Date: ~ 07/15/2018 Status: Acute Comment: As above (3) Obstructive sleep apnea Status: Chronic Comment: Noted (4) COPD (chronic obstructive pulmonary disease) Status: Chronic Comment: On treatment Qualifiers: COPD type: chronic bronchitis Chronic bronchitis type: simple Qualified Codes: J41.0 - Simple chronic bronchitis (5) Essential hypertension Status: Chronic Comment: Controlled (6) Postoperative anemia due to acute blood loss Status: Acute Comment: Check iron and recheck CBC (7) Benign prostatic hyperplasia Status: Chronic Comment: On treatment Qualifiers: Lower urinary tract symptom presence: symptoms present Lower urinary tract symptom detail: urinary hesitancy Qualified Codes: N40.1 - Benign prostatic hyperplasia with lower urinary tract symptoms; R39.11 - Hesitancy of micturition (8) Hyperlipidemia Status: Chronic Comment: Continue statin therapy Qualifiers: Hyperlipidemia type: pure hypercholesterolemia Qualified Codes: E78.00 - Pure hypercholesterolemia, unspecified Result Diagram: 07/18/18 0624 07/18/18 0624 Subjective 24 Hr Interval Summary Constitutional: no complaints Respiratory: no complaints Musculoskeletal: back pain Exam/Review of Systems Vital Signs Vitals Vital Signs Date Temp Pulse Resp B/P (MAP) Pulse Ox O2 O2 Flow FiO2 Time Delivery Rate 07/19/18 98.3 80 18 119/58 96 Room Air 19:49 (78) Intake and Output 07/18/18 07/18/18 07/19/18 1515:00 23:00 07:00 IntakeIntake Total 800 ml 1130 ml OutputOutput Total 400 ml 220 ml BalanceBalance 400 ml 910 ml Exam Constitutional: alert, oriented Cardiovascular: regular rate and rhythm, nl pulses Gastrointestinal: soft, nl liver, spleen, non-tender Medications Medications Current Medications Phenol (Cepastat Lozenge) 1 lozenge PRN PRN [place] SORE THROAT; Start 07/18/18 at 01:30 Tamsulosin HCl (Flomax) 0.4 mg DAILY@21 PO Last administered on 07/19/18at 20:17; Admin Dose 0.4 MG; Start 07/18/18 at 21:00 Dutasteride (Avodart) 0.5 mg DAILY PO Last administered on 07/19/18at 08:02; Admin Dose 0.5 MG; Start 07/18/18 at 09:00 Fluticasone/ Vilanterol (Breo Ellipta 100-25 Mcg Inh) 1 inh DAILY INH Last administered on 07/19/18at 08:03; Admin Dose 1 INH; Start 07/18/18 at 09:00 Metoprolol Succinate (Toprol Xl) 25 mg BID PO Last administered on 07/19/18at 20:18; Admin Dose 25 MG; Start 07/18/18 at 09:00 Ondansetron HCl (Zofran Inj) 4 mg Q6H PRN IV NAUSEA AND/OR VOMITING; Start 07/18/18 at 01:30 Oxycodone/ Acetaminophen (Endocet (10/ 325)) 1 tab Q4H PRN PO MODERATE PAIN LEVEL 4-6 Last administered on 07/19/18 20:18; Admin Dose 1 TAB; Start 07/18/18 at 01:30 Oxycodone/ Acetaminophen (Endocet (10/ 325)) 2 tab Q4H PRN PO MODERATE PAIN LEVEL 4-6 Last administered on 07/19/18at 17:19; Admin Dose 2 TAB; Start 07/18/18 at 01:30 Acetaminophen (Tylenol Tab) 650 mg Q4H PRN PO MILD PAIN(1-3)OR ELEVATED TEMP; Start 07/18/18 at 01:30 Al Hydrox/Mg Hydrox/Simethicone (Mag-Al Plus) 15 ml Q6H PRN PO GASTROINTESTINAL UPSET; Start 07/18/18 at 01:30 Atorvastatin Calcium (Lipitor) 10 mg DAILY@21 PO Last administered on 07/19/18at 20:17; Admin Dose 10 MG; Start 07/18/18 at 21:00 Bisacodyl (Dulcolax Supp) 10 mg DAILY PRN [place] CONSTIPATION; Start 07/18/18 at 01:30 Cyclobenzaprine HCl (Flexeril) 10 mg TID PRN PO MUSCLE SPASMS Last administered on 07/19/18 18:30; Admin Dose 10 MG; Start 07/18/18 at 01:30 Diphenhydramine HCl (Benadryl) 25 mg Q6H PRN PO ALLERGIC REACTION; Start 07/18/18 at 01:30 Docusate Sodium (Colace) 100 mg BID PO Last administered on 07/19/18 08:02; Admin Dose 100 MG; Start 07/18/18 at 09:00 Doxazosin Mesylate (Cardura) 4 mg HS PO Last administered on 07/18/18 21:58; Admin Dose 4 MG; Start 07/18/18 at 21:00 Senna (Senokot) 1 tab HS PO Last administered on 07/18/18 20:54; Admin Dose 1 TAB; Start 07/18/18 at 21:00 Magnesium Hydroxide (Milk Of Mag) 30 ml BID PRN PO CONSTIPATION; Start 07/18/18 at 01:30 Pantoprazole (Protonix Tab) 40 mg DAILY@06 PO Last administered on 07/19/18 07:12; Admin Dose 40 MG; Start 07/18/18 at 07:00 Hydromorphone HCl (Dilaudid) 1 mg Q2H PRN IV SEVERE PAIN LEVEL 7-10 Last administered on 07/19/18 10:25; Admin Dose 1 MG; Start 07/18/18 at 12:30 Lactulose (Enulose) 10 gm DAILY PRN PO CONSTIPATION Last administered on 07/19/18 07:12; Admin Dose 10 GM; Start 07/18/18 at 12:30 Bisacodyl (Dulcolax) 10 mg DAILY PRN PO CONSTIPATION; Start 07/18/18 at 13:00 GAGE CASTILLO MD Jul 19, 2018 20:42
--- NOTE | 2018-07-19 22:01 | NUR ---
[facility] RN Weekly Summary Dates From: 07/17/18 to 07/19/18 Patient Name: JOHN MELO MR#: [id number] Height: 5 ft 6 in Weight: 187 lbs 9.814 oz 85.100 kg Reason for Visit: OTHER NEUROLOGICAL CONDITION Precautions: Fall. Date: 07/19/18 Time: 2201 User: LUIS FERNANDO FIGUEROA Short-term Goals: 1. Pain will be well controlled 2. No fall, no injury 3. No S/S of surgical site infection 4. Regular pattern of B&B Patient's progress: Fair Short-term goals not met and reason/barriers: Ongoing Bladder - level of function and accidents: 5, No accident Bowel - level of function and accidents: 6, no accident Skin: non-intact Status: anterior abdomen and back-surgical site incision Treatment: as ordered Changes: NOne Pain: yes Level: 6-9/10 Location: back Management: DIlaudid IV and [place] Po prn Changes: Functional levels: Self Care: 3 Transfers: 3 Locomotion: 3 Assistance requirements: Communication: 5 Social Cognition: 5 Safety awareness: Yes, calls for assistance. Has bed alarm/chair alarm on for safety precaution Interdisciplinary interactions: PT. OT. SW. RN Patient education: Yes, q.shift and prn on medication, safety, use of call light, and as documented Discharge needs: Ongoing Comorbid conditions: 1. Acute pain syndrome. 2. Chronic obstructive pulmonary disease. 3. Sleep apnea. 4. Hyperlipidemia. 5. Hypertension. 6. Benign prostatic hypertrophy. 7. Coronary artery disease. 8. Anemia. 9. Constipation. 10. Impairments in self-care and mobility. Plan of Care continuation: Yes, continue current POC
[2018-07-19] MEDS: DOXAZOSIN 4 MG TAB PO SCH (22:12)
[2018-07-20] MEDS: OXYCODONE/ACETAMINOPHEN (10/325) TAB PO PRN ×4 (00:21→18:27)
[2018-07-20] MEDS: HYDROmorphONE 1 MG/ML SYG IV PRN ×7 (01:29→22:35)
[2018-07-20 03:48] VITALS: BP 112/64; PULSE 77; RESP 18
--- NOTE | 2018-07-20 05:31 | NUR ---
Pt asleep, no s/s of acute distress. Reported/manifested relief of pain after interventions. No s/s of acute distress. Due meds given. Needs attended to. VS WNL. Frequent checks done. Safety precautions in place. Kept comfortable. Encouraged to call for help whenever necessary. Will endorse accordingly.
[2018-07-20 07:00] VITALS: BP 120/63; PULSE 98; RESP 18
[2018-07-20] MEDS: PANTOPRAZOLE (EC) 40 MG TAB PO SCH (07:02)
--- NOTE | 2018-07-20 08:38 | PN ---
Date/Time of Note Date/Time of Note DATE: 07/20/18 TIME: 08:36 Subjective Reports significant pain Objective Vital Signs Date Temp Pulse Resp B/P (MAP) Pulse Ox O2 O2 Flow FiO2 Time Delivery Rate 07/20/18 98.1 77 18 112/64 97 Room Air 03:48 (80) Intake and Output 07/19/18 07/19/18 07/20/18 1515:00 23:00 07:00 IntakeIntake Total 1260 ml OutputOutput Total 600 ml 310 ml BalanceBalance 660 ml -310 ml Exam pulm-cta abd-soft mod ambulation 70 feet Results/Medications Result Diagram: 07/20/18 0645 07/20/18 0645 Results 24 hrs Laboratory Tests Test 07/20/18 06:45 White Blood Count 6.9 Red Blood Count 2.44 L Hemoglobin 8.2 L Hematocrit 24.3 L Mean Corpuscular Volume 99.6 Mean Corpuscular Hemoglobin 33.6 H Mean Corpuscular Hemoglobin Concent 33.7 Red Cell Distribution Width 12.9 Platelet Count 222 # Mean Platelet Volume 8.9 Immature Granulocytes % 0.700 H Neutrophils % 63.2 Lymphocytes % 16.3 Monocytes % 15.9 H Eosinophils % 3.6 Basophils % 0.3 Nucleated Red Blood Cells % 0.0 Immature Granulocytes # 0.050 H Neutrophils # 4.3 Lymphocytes # 1.1 Monocytes # 1.1 H Eosinophils # 0.3 Basophils # 0.0 Nucleated Red Blood Cells # 0.0 Sodium Level 136 Potassium Level 3.3 L Chloride Level 96 L Carbon Dioxide Level 32 H Anion Gap 8 Blood Urea Nitrogen 12 Creatinine 0.55 L Est Glomerular Filtrat Rate mL/min Glucose Level 105 Calcium Level 8.4 Iron Level 33 L Total Iron Binding Capacity 227 L Percent Iron Saturation 15 L Ferritin 247.0 Medications Current Medications Phenol (Cepastat Lozenge) 1 lozenge PRN PRN [place] SORE THROAT; Start 07/18/18 at 01:30 Tamsulosin HCl (Flomax) 0.4 mg DAILY@21 PO Last administered on 07/19/18at 20:17; Admin Dose 0.4 MG; Start 07/18/18 at 21:00 Dutasteride (Avodart) 0.5 mg DAILY PO Last administered on 07/19/18at 08:02; Admin Dose 0.5 MG; Start 07/18/18 at 09:00 Fluticasone/ Vilanterol (Breo Ellipta 100-25 Mcg Inh) 1 inh DAILY INH Last administered on 07/19/18at 08:03; Admin Dose 1 INH; Start 07/18/18 at 09:00 Metoprolol Succinate (Toprol Xl) 25 mg BID PO Last administered on 07/19/18 20:18; Admin Dose 25 MG; Start 07/18/18 at 09:00 Ondansetron HCl (Zofran Inj) 4 mg Q6H PRN IV NAUSEA AND/OR VOMITING; Start 07/18/18 at 01:30 Oxycodone/ Acetaminophen (Endocet (10/ 325)) 1 tab Q4H PRN PO MODERATE PAIN LEVEL 4-6 Last administered on 07/19/18at 20:18; Admin Dose 1 TAB; Start 07/18/18 at 01:30 Oxycodone/ Acetaminophen (Endocet (10/ 325)) 2 tab Q4H PRN PO MODERATE PAIN LEVEL 4-6 Last administered on 07/20/18at 00:21; Admin Dose 2 TAB; Start 07/18/18 at 01:30 Acetaminophen (Tylenol Tab) 650 mg Q4H PRN PO MILD PAIN(1-3)OR ELEVATED TEMP; Start 07/18/18 at 01:30 Al Hydrox/Mg Hydrox/Simethicone (Mag-Al Plus) 15 ml Q6H PRN PO GASTROINTESTINAL UPSET; Start 07/18/18 at 01:30 Atorvastatin Calcium (Lipitor) 10 mg DAILY@21 PO Last administered on 07/19/18at 20:17; Admin Dose 10 MG; Start 07/18/18 at 21:00 Bisacodyl (Dulcolax Supp) 10 mg DAILY PRN [place] CONSTIPATION; Start 07/18/18 at 01:30 Cyclobenzaprine HCl (Flexeril) 10 mg TID PRN PO MUSCLE SPASMS Last administered on 07/19/18at 18:30; Admin Dose 10 MG; Start 07/18/18 at 01:30 Diphenhydramine HCl (Benadryl) 25 mg Q6H PRN PO ALLERGIC REACTION; Start 07/18/18 at 01:30 Docusate Sodium (Colace) 100 mg BID PO Last administered on 07/19/18at 08:02; Admin Dose 100 MG; Start 07/18/18 at 09:00 Doxazosin Mesylate (Cardura) 4 mg HS PO Last administered on 07/19/18 22:12; Admin Dose 4 MG; Start 07/18/18 at 21:00 Senna (Senokot) 1 tab HS PO Last administered on 07/18/18at 20:54; Admin Dose 1 TAB; Start 07/18/18 at 21:00 Magnesium Hydroxide (Milk Of Mag) 30 ml BID PRN PO CONSTIPATION; Start 07/18/18 at 01:30 Pantoprazole (Protonix Tab) 40 mg DAILY@06 PO Last administered on 07/20/18 07:02; Admin Dose 40 MG; Start 07/18/18 at 07:00 Hydromorphone HCl (Dilaudid) 1 mg Q2H PRN IV SEVERE PAIN LEVEL 7-10 Last administered on 07/20/18 07:32; Admin Dose 1 MG; Start 07/18/18 at 12:30 Lactulose (Enulose) 10 gm DAILY PRN PO CONSTIPATION Last administered on 07/19/18at 07:12; Admin Dose 10 GM; Start 07/18/18 at 12:30 Bisacodyl (Dulcolax) 10 mg DAILY PRN PO CONSTIPATION; Start 07/18/18 at 13:00 Assessment/Plan Additional Assessment/Plan Rehab- Lumbar radiculopathy status post decompression and fusion. Progressing well Acute pain syndrome-adjust meds Chronic obstructive pulmonary disease. Sleep apnea. Hyperlipidemia. Hypertension. Benign prostatic hypertrophy. Coronary artery disease. Anemia. Constipation-results with bowel program KINA WILL MD Jul 20, 2018 08:38
[2018-07-20] MEDS: DOCUSATE SODIUM 100 MG CAP PO SCH ×2 (09:00→20:26)
[2018-07-20] MEDS: BACLOFEN 10 MG TAB PO SCH ×2 (09:17→20:27)
[2018-07-20] MEDS: GABAPENTIN 100 MG CAP PO SCH ×3 (09:17→20:28)
[2018-07-20] MEDS: DUTASTERIDE 0.5 MG CAP PO SCH (09:17)
[2018-07-20] MEDS: METOPROLOL (XL) 25 MG TAB PO SCH ×2 (09:18→20:35)
[2018-07-20] MEDS: FLUTICASONE/VILANTEROL 100-25 INH SCH (09:19)
--- NOTE | 2018-07-20 12:07 | PN ---
Date/Time of Note Date/Time of Note DATE: 07/20/18 TIME: 12:05 Assessment/Plan Lines/Catheters IV Catheter Type (from Nrsg): Saline Lock Lares in Place (from Nrsg): No Assessment/Plan Assessment/Plan POD #6/5 s/p lumbar fusion L2-S1 continue PT, ambulate continue pain control Subjective 24 Hr Interval Summary c/o LBP but does note improvement Exam/Review of Systems Vital Signs Vitals Vital Signs Date Temp Pulse Resp B/P (MAP) Pulse Ox O2 O2 Flow FiO2 Time Delivery Rate 07/20/18 97.7 98 18 120/63 95 Room Air 07:00 (82) Intake and Output 07/19/18 07/19/18 07/20/18 1515:00 23:00 07:00 IntakeIntake Total 1260 ml OutputOutput Total 600 ml 310 ml BalanceBalance 660 ml -310 ml Exam Free Text/Dictation incisions (lumbar, flank, abdominal) C/D/I, no s/sx infection posterior lumbar dressing changed exam unchanged aox3 Results Result Diagram: 07/20/18 0645 07/20/18 0645 ELIEZER JETER PA-C Jul 20, 2018 12:07
[2018-07-20] MEDS ORDERED: POTASSIUM CHLORIDE (SR) 20 MEQ TAB PO STA (13:21)
--- NOTE | 2018-07-20 13:41 | PN ---
Date/Time of Note Date/Time of Note DATE: 07/20/18 TIME: 13:39 Assessment/Plan VTE Prophylaxis Risk score (from Ns)>0 risk: 7 SCD applied (from [place]): No SCD contraindicated: low risk/ambulating Pharmacological prophylaxis: heparin Lines/Catheters IV Catheter Type (from [facility]): Saline Lock Urinary Cath still in place: No Assessment/Plan Problems: (1) Status post lumbar and lumbosacral fusion by anterior technique Onset Date: ~ 07/14/2018 Status: Acute Comment: Progressing with the acute rehabilitation unit protocol (2) Status post lumbar spinal fusion Onset Date: ~ 07/15/2018 Status: Acute Comment: Progressing with acute rehabilitation unit protocol (3) Postoperative anemia due to acute blood loss Status: Acute Comment: Stable. Since he is a little bit low on iron we will go ahead and give him oral iron for 1 month only (4) Essential hypertension Status: Chronic Comment: Adequate control (5) Benign prostatic hyperplasia Status: Chronic Comment: Adequate control Qualifiers: Lower urinary tract symptom presence: symptoms present Lower urinary tract symptom detail: urinary hesitancy Qualified Codes: N40.1 - Benign prostatic hyperplasia with lower urinary tract symptoms; R39.11 - Hesitancy of micturition (6) Hyperlipidemia Status: Chronic Comment: Stable statin therapy Qualifiers: Hyperlipidemia type: pure hypercholesterolemia Qualified Codes: E78.00 - Pure hypercholesterolemia, unspecified (7) COPD (chronic obstructive pulmonary disease) Status: Chronic Comment: Compensated with medication therapy Qualifiers: COPD type: chronic bronchitis Chronic bronchitis type: simple Qualified Codes: J41.0 - Simple chronic bronchitis (8) Obstructive sleep apnea Status: Chronic Comment: Noted. Result Diagram: 07/20/18 0645 07/20/18 0645 Results 24hrs Laboratory Tests Test 07/20/18 06:45 White Blood Count 6.9 Red Blood Count 2.44 L Hemoglobin 8.2 L Hematocrit 24.3 L Mean Corpuscular Volume 99.6 Mean Corpuscular Hemoglobin 33.6 H Mean Corpuscular Hemoglobin Concent 33.7 Red Cell Distribution Width 12.9 Platelet Count 222 # Mean Platelet Volume 8.9 Immature Granulocytes % 0.700 H Neutrophils % 63.2 Lymphocytes % 16.3 Monocytes % 15.9 H Eosinophils % 3.6 Basophils % 0.3 Nucleated Red Blood Cells % 0.0 Immature Granulocytes # 0.050 H Neutrophils # 4.3 Lymphocytes # 1.1 Monocytes # 1.1 H Eosinophils # 0.3 Basophils # 0.0 Nucleated Red Blood Cells # 0.0 Sodium Level 136 Potassium Level 3.3 L Chloride Level 96 L Carbon Dioxide Level 32 H Anion Gap 8 Blood Urea Nitrogen 12 Creatinine 0.55 L Est Glomerular Filtrat Rate mL/min Glucose Level 105 Calcium Level 8.4 Iron Level 33 L Total Iron Binding Capacity 227 L Percent Iron Saturation 15 L Ferritin 247.0 Subjective 24 Hr Interval Summary Free Text/Dictation Patient reports he is having some pain but is still trying. He believes overall that he is better than when he first transferred to the acute rehab unit Constitutional: no complaints Respiratory: no complaints Cardiovascular: no complaints Exam/Review of Systems Vital Signs Vitals Vital Signs Date Temp Pulse Resp B/P (MAP) Pulse Ox O2 O2 Flow FiO2 Time Delivery Rate 07/20/18 97.7 98 18 120/63 95 Room Air 07:00 (82) Intake and Output 07/19/18 07/19/18 07/20/18 1515:00 23:00 07:00 IntakeIntake Total 1260 ml OutputOutput Total 600 ml 310 ml BalanceBalance 660 ml -310 ml Exam Constitutional: alert, oriented Respiratory: clear to auscultation, normal air movement Cardiovascular: regular rate and rhythm, nl pulses Gastrointestinal: soft, nl liver, spleen, non-tender Medications Medications Current Medications Phenol (Cepastat Lozenge) 1 lozenge PRN PRN [place] SORE THROAT; Start 07/18/18 at 01:30 Tamsulosin HCl (Flomax) 0.4 mg DAILY@21 PO Last administered on 07/19/18at 20:17; Admin Dose 0.4 MG; Start 07/18/18 at 21:00 Dutasteride (Avodart) 0.5 mg DAILY PO Last administered on 07/20/18at 09:17; Admin Dose 0.5 MG; Start 07/18/18 at 09:00 Fluticasone/ Vilanterol (Breo Ellipta 100-25 Mcg Inh) 1 inh DAILY INH Last administered on 07/20/18at 09:19; Admin Dose 1 INH; Start 07/18/18 at 09:00 Metoprolol Succinate (Toprol Xl) 25 mg BID PO Last administered on 07/20/18at 09:18; Admin Dose 25 MG; Start 07/18/18 at 09:00 Ondansetron HCl (Zofran Inj) 4 mg Q6H PRN IV NAUSEA AND/OR VOMITING; Start 07/18/18 at 01:30 Oxycodone/ Acetaminophen (Endocet (10/ 325)) 1 tab Q4H PRN PO MODERATE PAIN LEVEL 4-6 Last administered on 07/19/18at 20:18; Admin Dose 1 TAB; Start 07/18/18 at 01:30 Oxycodone/ Acetaminophen (Endocet (10/ 325)) 2 tab Q4H PRN PO MODERATE PAIN LEVEL 4-6 Last administered on 07/20/18at 09:18; Admin Dose 2 TAB; Start 07/18/18 at 01:30 Acetaminophen (Tylenol Tab) 650 mg Q4H PRN PO MILD PAIN(1-3)OR ELEVATED TEMP; Start 07/18/18 at 01:30 Al Hydrox/Mg Hydrox/Simethicone (Mag-Al Plus) 15 ml Q6H PRN PO GASTROINTESTINAL UPSET; Start 07/18/18 at 01:30 Atorvastatin Calcium (Lipitor) 10 mg DAILY@21 PO Last administered on 07/19/18at 20:17; Admin Dose 10 MG; Start 07/18/18 at 21:00 Bisacodyl (Dulcolax Supp) 10 mg DAILY PRN [place] CONSTIPATION; Start 07/18/18 at 01:30 Diphenhydramine HCl (Benadryl) 25 mg Q6H PRN PO ALLERGIC REACTION; Start 07/18/18 at 01:30 Docusate Sodium (Colace) 100 mg BID PO Last administered on 07/19/18at 08:02; Admin Dose 100 MG; Start 07/18/18 at 09:00 Doxazosin Mesylate (Cardura) 4 mg HS PO Last administered on 07/19/18at 22:12; Admin Dose 4 MG; Start 07/18/18 at 21:00 Senna (Senokot) 1 tab HS PO Last administered on 07/18/18at 20:54; Admin Dose 1 TAB; Start 07/18/18 at 21:00 Magnesium Hydroxide (Milk Of Mag) 30 ml BID PRN PO CONSTIPATION; Start 07/18/18 at 01:30 Pantoprazole (Protonix Tab) 40 mg DAILY@06 PO Last administered on 07/20/18 07:02; Admin Dose 40 MG; Start 07/18/18 at 07:00 Hydromorphone HCl (Dilaudid) 1 mg Q2H PRN IV SEVERE PAIN LEVEL 7-10 Last administered on 07/20/18 11:29; Admin Dose 1 MG; Start 07/18/18 at 12:30 Lactulose (Enulose) 10 gm DAILY PRN PO CONSTIPATION Last administered on 07/19/18 07:12; Admin Dose 10 GM; Start 07/18/18 at 12:30 Bisacodyl (Dulcolax) 10 mg DAILY PRN PO CONSTIPATION; Start 07/18/18 at 13:00 Baclofen (Lioresal) 10 mg BID PO Last administered on 07/20/18 09:17; Admin Dose 10 MG; Start 07/20/18 at 09:00 Gabapentin (Neurontin) 100 mg TID PO Last administered on 07/20/18 09:17; Admin Dose 100 MG; Start 07/20/18 at 09:00 Docusate Sodium/ Ferrous Fumarate (Patrick-Sequels) 1 tab DAILY PO ; Start 07/20/18 at 13:30; Stop 08/19/18 at 13:29 GAGE CASTILLO MD Jul 20, 2018 13:41
[2018-07-20 14:00] VITALS: BP 123/70; PULSE 83; RESP 18
[2018-07-20] MEDS: FERROUS FUMARATE (SR) TAB PO SCH (14:22)
--- NOTE | 2018-07-20 18:10 | NUR ---
Patient resting in bed at this time. He ahs been medicated for pain throughout the day with iv dilaudid and po endocet. He was assisted oob to WC during the day and used toilet with min assist. All due meds given, call light in reach and bed alarm on.
[2018-07-20 19:39] VITALS: BP 124/62; PULSE 91; RESP 18
[2018-07-20] MEDS: ATORVASTATIN 10 MG TAB PO SCH (20:26)
[2018-07-20] MEDS: SENNA TAB PO SCH (20:26)
[2018-07-20] MEDS: TAMSULOSIN (SR) 0.4 MG CAP PO SCH (20:28)
[2018-07-20] MEDS: DOXAZOSIN 4 MG TAB PO SCH (20:34)
[2018-07-21] MEDS: HYDROmorphONE 1 MG/ML SYG IV PRN ×10 (00:35→23:16)
[2018-07-21 01:47] VITALS: BP 118/64; PULSE 79; RESP 18
--- NOTE | 2018-07-21 04:53 | NUR ---
PATIENT IS ALERT AND ORIENTED. MEDICATED WITH DILAUDID 1 MG IV FOR BACK PAIN WITH SOME RELIEF. RECREATIONAL ACTIVITIES PROVIDED TO PATIENT ; TV, CALL LIGHT WITHIN REACH. ANTERIOR AND POSTERIOR DRESSING DRY AND INTACT.
[2018-07-21] MEDS: PANTOPRAZOLE (EC) 40 MG TAB PO SCH (05:44)
[2018-07-21] MEDS: OXYCODONE/ACETAMINOPHEN (10/325) TAB PO PRN ×2 (06:25→14:21)
[2018-07-21 07:30] VITALS: BP 136/82; PULSE 73; RESP 18
[2018-07-21] MEDS: DUTASTERIDE 0.5 MG CAP PO SCH (09:53)
[2018-07-21] MEDS: FERROUS FUMARATE (SR) TAB PO SCH (09:54)
[2018-07-21] MEDS: GABAPENTIN 100 MG CAP PO SCH ×3 (09:54→21:04)
[2018-07-21] MEDS: BACLOFEN 10 MG TAB PO SCH ×2 (09:54→21:04)
[2018-07-21] MEDS: DOCUSATE SODIUM 100 MG CAP PO SCH ×2 (09:55→21:04)
[2018-07-21] MEDS: METOPROLOL (XL) 25 MG TAB PO SCH ×2 (09:55→21:04)
[2018-07-21] MEDS: FLUTICASONE/VILANTEROL 100-25 INH SCH (09:55)
--- NOTE | 2018-07-21 13:31 | PN ---
Date/Time of Note Date/Time of Note DATE: 07/21/18 TIME: 13:28 Assessment/Plan VTE Prophylaxis Risk score (from Ns)>0 risk: 7 SCD applied (from Ns): Yes Pharmacological prophylaxis: NA/contraindicated Pharm contraindication: surgical contra Lines/Catheters IV Catheter Type (from Nrsg): Saline Lock Urinary Cath still in place: No Assessment/Plan Result Diagram: 07/20/18 0645 07/20/18 0645 Subjective 24 Hr Interval Summary Free Text/Dictation in rehab, starting to walk. still focused on pain meds. gi, gu ok per pt. no cough or sob last k a little low, repeat in am one dose today cont with rehab protocol still mild foot drop left, tho perhaps some better Musculoskeletal: back pain Exam/Review of Systems Vital Signs Vitals Vital Signs Date Temp Pulse Resp B/P (MAP) Pulse Ox O2 O2 Flow FiO2 Time Delivery Rate 07/21/18 98.1 73 18 136/82 96 Room Air 07:30 (100) Intake and Output 07/20/18 07/20/18 07/21/18 1515:00 23:00 07:00 IntakeIntake Total 1600 ml 240 ml OutputOutput Total 800 ml 200 ml BalanceBalance 800 ml 40 ml Medications Medications Current Medications Phenol (Cepastat Lozenge) 1 lozenge PRN PRN [place] SORE THROAT; Start 07/18/18 at 01:30 Tamsulosin HCl (Flomax) 0.4 mg DAILY@21 PO Last administered on 07/20/18at 20:28; Admin Dose 0.4 MG; Start 07/18/18 at 21:00 Dutasteride (Avodart) 0.5 mg DAILY PO Last administered on 07/21/18at 09:53; Admin Dose 0.5 MG; Start 07/18/18 at 09:00 Fluticasone/ Vilanterol (Breo Ellipta 100-25 Mcg Inh) 1 inh DAILY INH Last administered on 07/21/18at 09:55; Admin Dose 1 INH; Start 07/18/18 at 09:00 Metoprolol Succinate (Toprol Xl) 25 mg BID PO Last administered on 07/21/18at 09:55; Admin Dose 25 MG; Start 07/18/18 at 09:00 Ondansetron HCl (Zofran Inj) 4 mg Q6H PRN IV NAUSEA AND/OR VOMITING; Start 07/18/18 at 01:30 Oxycodone/ Acetaminophen (Endocet (10/ 325)) 1 tab Q4H PRN PO MODERATE PAIN LEVEL 4-6 Last administered on 07/19/18at 20:18; Admin Dose 1 TAB; Start 07/18/18 at 01:30 Oxycodone/ Acetaminophen (Endocet (10/ 325)) 2 tab Q4H PRN PO MODERATE PAIN LEVEL 4-6 Last administered on 07/21/18 06:25; Admin Dose 2 TAB; Start 07/18/18 at 01:30 Acetaminophen (Tylenol Tab) 650 mg Q4H PRN PO MILD PAIN(1-3)OR ELEVATED TEMP; Start 07/18/18 at 01:30 Al Hydrox/Mg Hydrox/Simethicone (Mag-Al Plus) 15 ml Q6H PRN PO GASTROINTESTINAL UPSET; Start 07/18/18 at 01:30 Atorvastatin Calcium (Lipitor) 10 mg DAILY@21 PO Last administered on 07/20/18at 20:26; Admin Dose 10 MG; Start 07/18/18 at 21:00 Bisacodyl (Dulcolax Supp) 10 mg DAILY PRN [place] CONSTIPATION; Start 07/18/18 at 01:30 Diphenhydramine HCl (Benadryl) 25 mg Q6H PRN PO ALLERGIC REACTION; Start 07/18/18 at 01:30 Docusate Sodium (Colace) 100 mg BID PO Last administered on 07/21/18at 09:55; Admin Dose 100 MG; Start 07/18/18 at 09:00 Doxazosin Mesylate (Cardura) 4 mg HS PO Last administered on 07/20/18at 20:34; Admin Dose 4 MG; Start 07/18/18 at 21:00 Senna (Senokot) 1 tab HS PO Last administered on 07/20/18 20:26; Admin Dose 1 TAB; Start 07/18/18 at 21:00 Magnesium Hydroxide (Milk Of Mag) 30 ml BID PRN PO CONSTIPATION; Start 07/18/18 at 01:30 Pantoprazole (Protonix Tab) 40 mg DAILY@06 PO Last administered on 07/21/18at 05:44; Admin Dose 40 MG; Start 07/18/18 at 07:00 Hydromorphone HCl (Dilaudid) 1 mg Q2H PRN IV SEVERE PAIN LEVEL 7-10 Last administered on 07/21/18 12:56; Admin Dose 1 MG; Start 07/18/18 at 12:30 Lactulose (Enulose) 10 gm DAILY PRN PO CONSTIPATION Last administered on 07/19/18 07:12; Admin Dose 10 GM; Start 07/18/18 at 12:30 Bisacodyl (Dulcolax) 10 mg DAILY PRN PO CONSTIPATION; Start 07/18/18 at 13:00 Baclofen (Lioresal) 10 mg BID PO Last administered on 07/21/18 09:54; Admin Dose 10 MG; Start 07/20/18 at 09:00 Gabapentin (Neurontin) 100 mg TID PO Last administered on 07/21/18 09:54; Admin Dose 100 MG; Start 07/20/18 at 09:00 Docusate Sodium/ Ferrous Fumarate (Patrick-Sequels) 1 tab DAILY PO Last administered on 07/21/18 09:54; Admin Dose 1 TAB; Start 07/20/18 at 13:30; Stop 08/19/18 at 13:29 JAN IRAHETA MD Jul 21, 2018 13:30
[2018-07-21 14:00] VITALS: BP 134/68; PULSE 91; RESP 18
--- NOTE | 2018-07-21 14:03 | PN ---
Date/Time of Note Date/Time of Note DATE: 07/21/18 TIME: 14:02 Objective Vital Signs Date Temp Pulse Resp B/P (MAP) Pulse Ox O2 O2 Flow FiO2 Time Delivery Rate 07/21/18 98.1 73 18 136/82 96 Room Air 07:30 (100) Intake and Output 07/20/18 07/20/18 07/21/18 1515:00 23:00 07:00 IntakeIntake Total 1600 ml 240 ml OutputOutput Total 800 ml 200 ml BalanceBalance 800 ml 40 ml Exam Physical Exam: Pulm-cta Abd-soft BOWEL- Cont BLADDER-Cont/incont SKIN- intact OT- DRESSING- mod/max BATHING-mod/max TOILETING-mod/max PT- BED MOBILITY-mod TRANSFERS-mod AMBULATION-mod 70 feet A/P- Interdisciplinary team conference held today. Please see interdisciplinary sheet. Working toward d.c. on 07/29 with post discharge follow up of physical therapy, occupational therapy. Results/Medications Result Diagram: 07/20/18 0645 07/20/18 0645 Medications Current Medications Phenol (Cepastat Lozenge) 1 lozenge PRN PRN [place] SORE THROAT; Start 07/18/18 at 01:30 Tamsulosin HCl (Flomax) 0.4 mg DAILY@21 PO Last administered on 07/20/18at 20:28; Admin Dose 0.4 MG; Start 07/18/18 at 21:00 Dutasteride (Avodart) 0.5 mg DAILY PO Last administered on 07/21/18at 09:53; Admin Dose 0.5 MG; Start 07/18/18 at 09:00 Fluticasone/ Vilanterol (Breo Ellipta 100-25 Mcg Inh) 1 inh DAILY INH Last administered on 07/21/18at 09:55; Admin Dose 1 INH; Start 07/18/18 at 09:00 Metoprolol Succinate (Toprol Xl) 25 mg BID PO Last administered on 07/21/18at 09:55; Admin Dose 25 MG; Start 07/18/18 at 09:00 Ondansetron HCl (Zofran Inj) 4 mg Q6H PRN IV NAUSEA AND/OR VOMITING; Start 07/18/18 at 01:30 Oxycodone/ Acetaminophen (Endocet (10/ 325)) 1 tab Q4H PRN PO MODERATE PAIN LEVEL 4-6 Last administered on 07/19/18 20:18; Admin Dose 1 TAB; Start 07/18/18 at 01:30 Oxycodone/ Acetaminophen (Endocet (10/ 325)) 2 tab Q4H PRN PO MODERATE PAIN LEVEL 4-6 Last administered on 07/21/18 06:25; Admin Dose 2 TAB; Start 07/18/18 at 01:30 Acetaminophen (Tylenol Tab) 650 mg Q4H PRN PO MILD PAIN(1-3)OR ELEVATED TEMP; Start 07/18/18 at 01:30 Al Hydrox/Mg Hydrox/Simethicone (Mag-Al Plus) 15 ml Q6H PRN PO GASTROINTESTINAL UPSET; Start 07/18/18 at 01:30 Atorvastatin Calcium (Lipitor) 10 mg DAILY@21 PO Last administered on 07/20/18 20:26; Admin Dose 10 MG; Start 07/18/18 at 21:00 Bisacodyl (Dulcolax Supp) 10 mg DAILY PRN [place] CONSTIPATION; Start 07/18/18 at 01:30 Diphenhydramine HCl (Benadryl) 25 mg Q6H PRN PO ALLERGIC REACTION; Start 07/18/18 at 01:30 Docusate Sodium (Colace) 100 mg BID PO Last administered on 07/21/18 09:55; Admin Dose 100 MG; Start 07/18/18 at 09:00 Doxazosin Mesylate (Cardura) 4 mg HS PO Last administered on 07/20/18 20:34; Admin Dose 4 MG; Start 07/18/18 at 21:00 Senna (Senokot) 1 tab HS PO Last administered on 07/20/18 20:26; Admin Dose 1 TAB; Start 07/18/18 at 21:00 Magnesium Hydroxide (Milk Of Mag) 30 ml BID PRN PO CONSTIPATION; Start 07/18/18 at 01:30 Pantoprazole (Protonix Tab) 40 mg DAILY@06 PO Last administered on 07/21/18 05:44; Admin Dose 40 MG; Start 07/18/18 at 07:00 Hydromorphone HCl (Dilaudid) 1 mg Q2H PRN IV SEVERE PAIN LEVEL 7-10 Last administered on 07/21/18 12:56; Admin Dose 1 MG; Start 07/18/18 at 12:30 Lactulose (Enulose) 10 gm DAILY PRN PO CONSTIPATION Last administered on 07/19/18at 07:12; Admin Dose 10 GM; Start 07/18/18 at 12:30 Bisacodyl (Dulcolax) 10 mg DAILY PRN PO CONSTIPATION; Start 07/18/18 at 13:00 Baclofen (Lioresal) 10 mg BID PO Last administered on 07/21/18at 09:54; Admin Dose 10 MG; Start 07/20/18 at 09:00 Gabapentin (Neurontin) 100 mg TID PO Last administered on 07/21/18at 09:54; Admin Dose 100 MG; Start 07/20/18 at 09:00 Docusate Sodium/ Ferrous Fumarate (Patrick-Sequels) 1 tab DAILY PO Last administered on 07/21/18at 09:54; Admin Dose 1 TAB; Start 07/20/18 at 13:30; Stop 08/19/18 at 13:29 KINA WILL MD Jul 21, 2018 14:03
[2018-07-21 20:39] VITALS: BP 154/79; PULSE 86; RESP 18
[2018-07-21] MEDS: ATORVASTATIN 10 MG TAB PO SCH (21:04)
[2018-07-21] MEDS: TAMSULOSIN (SR) 0.4 MG CAP PO SCH (21:04)
[2018-07-21] MEDS: SENNA TAB PO SCH (21:04)
[2018-07-21] MEDS: DOXAZOSIN 4 MG TAB PO SCH (21:05)
[2018-07-22 02:36] VITALS: BP 149/72; PULSE 93; RESP 18
[2018-07-22] MEDS: HYDROmorphONE 1 MG/ML SYG IV PRN ×2 (02:37→05:45)
[2018-07-22] MEDS: PANTOPRAZOLE (EC) 40 MG TAB PO SCH (05:44)
--- NOTE | 2018-07-22 06:43 | NUR ---
PT SLEPT ON OFF DURING THE NIGHT. C/O OF HIS BACK PAIN 9-04/09, MEDICATED WITH DILAUDID IV, PARTIALLY RELIEF. PT IS A/O X 3 WITH PERIOD OF FORGETFUL, GOT OUT OF BED MANY TIMES WITHOUT USING CALL LIGHT. REORIENTED PT TO SURROUNDING AREA. REINFORCEMENT GIVEN REGARDING BOUT USING CALL LIGHT. BED ALARM ON. FALL PRECAUTION. HOURLY ROUNDING MADE. REMOVED LIDODERM PATCH. CALL LIGHT AND TABLE ARE WITHIN REACH. ALL NEEDS ATTENDED.
[2018-07-22 07:30] VITALS: BP 152/72; PULSE 71; RESP 18
[2018-07-22] MEDS: DUTASTERIDE 0.5 MG CAP PO SCH (08:46)
[2018-07-22] MEDS: METOPROLOL (XL) 25 MG TAB PO SCH ×2 (08:46→20:39)
[2018-07-22] MEDS: FERROUS FUMARATE (SR) TAB PO SCH (08:46)
[2018-07-22] MEDS: FLUTICASONE/VILANTEROL 100-25 INH SCH (08:46)
[2018-07-22] MEDS: BACLOFEN 10 MG TAB PO SCH ×2 (08:47→20:38)
[2018-07-22] MEDS: GABAPENTIN 100 MG CAP PO SCH ×3 (08:47→20:38)
[2018-07-22] MEDS: DOCUSATE SODIUM 100 MG CAP PO SCH ×2 (08:47→20:37)
--- NOTE | 2018-07-22 09:19 | PN ---
Date/Time of Note Date/Time of Note DATE: 07/22/18 TIME: 09:18 Assessment/Plan Lines/Catheters IV Catheter Type (from Nrsg): Saline Lock Lares in Place (from Nrsg): No Assessment/Plan Assessment/Plan Patient continuing to improve. DC planning for July 29. Subjective 24 Hr Interval Summary Patient reports less back pain Exam/Review of Systems Vital Signs Vitals Vital Signs Date Temp Pulse Resp B/P (MAP) Pulse Ox O2 O2 Flow FiO2 Time Delivery Rate 07/22/18 98.0 93 18 149/72 97 Room Air 02:36 (97) Intake and Output 07/21/18 07/21/18 07/22/18 1515:00 23:00 07:00 IntakeIntake Total 1180 ml OutputOutput Total 980 ml 300 ml BalanceBalance 200 ml -300 ml Exam Free Text/Dictation Incision is dry and clean no erythema Results Result Diagram: 07/20/18 0645 07/20/18 0645 DEANNE NEWTON MD Jul 22, 2018 09:19
[2018-07-22] MEDS: OXYCODONE/ACETAMINOPHEN (10/325) TAB PO PRN ×3 (09:57→22:46)
--- NOTE | 2018-07-22 10:40 | NUR ---
PT NOTE 1000/1030 Made 2 attempts to see pt for PT tx. First attempt, pt refused d/t severe pain. Reported he's waiting for pain meds. Second attempt, pt refused again, stated severe pain, RN gave pain meds earlier.
--- NOTE | 2018-07-22 11:04 | NUR ---
SOCIAL WORK NOTE: This sba underwriter received a call from pt Lee Ann [phone] requesting a hospital bed upon discharge. This sba underwriter made lee ann aware of d/c date 07/29/17, discussed with patient as well. This sba underwriter faxed referral for DME to Alyssia at [facility] [phone]/fax#[phone], requested was a hospital bed, FWW and commode. Alyssia will get back to this social security specialist, social security specialist to follow up.
--- NOTE | 2018-07-22 11:40 | NUR ---
[facility] PT Weekly Summary Dates From: 07/18/18 to 07/22/18 Patient Name: JOHN MELO MR#: [id number] Height: 5 ft 6 in Weight: 187 lbs 9.814 oz 85.100 kg Reason for Visit: OTHER NEUROLOGICAL CONDITION Precautions: fall risk, spine precautions, LSO on at all times when OOB, monitor VS Date: 07/22/18 Time: 1140 User: AMINTA COLÓN Short-term Goals: Bed Mobility CGA Transfers CGA FWW Gait CGA 50ft FWW Pt making good gains while here in [facility]. Currently demonstrates Min A with bed mobility, min A with transfers using FWW, CGA/min A gait with FWW x 150 ft. Progressing well toward set goals despite c/o pain. Other barriers include dec compliance with safety precautions. Will continue to reinforce. Cont POC to achieve all set goals. Recommend HHPT, FWW and commode.
[2018-07-22] MEDS ORDERED: OXYCODONE/ACETAMINOPHEN (10/325) TAB PO SCH (11:45)
--- NOTE | 2018-07-22 11:58 | PN ---
Date/Time of Note Date/Time of Note DATE: 07/22/18 TIME: 11:58 Subjective Up for activities Objective Vital Signs Date Temp Pulse Resp B/P (MAP) Pulse Ox O2 O2 Flow FiO2 Time Delivery Rate 07/22/18 98.1 71 18 152/72 96 Room Air 07:30 (98) Intake and Output 07/21/18 07/21/18 07/22/18 1515:00 23:00 07:00 IntakeIntake Total 1180 ml OutputOutput Total 980 ml 300 ml BalanceBalance 200 ml -300 ml Exam pulm-cta abd-soft min assist ambulation Results/Medications Result Diagram: 07/20/18 0645 07/22/18 0721 Results 24 hrs Laboratory Tests Test 07/22/18 07:21 Sodium Level 134 L Potassium Level 4.0 Chloride Level 99 Carbon Dioxide Level 27 Anion Gap 8 Blood Urea Nitrogen 11 Creatinine 0.52 L Est Glomerular Filtrat Rate mL/min Glucose Level 105 Calcium Level 9.0 Medications Current Medications Phenol (Cepastat Lozenge) 1 lozenge PRN PRN [place] SORE THROAT; Start 07/18/18 at 01:30 Tamsulosin HCl (Flomax) 0.4 mg DAILY@21 PO Last administered on 07/21/18at 21:04; Admin Dose 0.4 MG; Start 07/18/18 at 21:00 Dutasteride (Avodart) 0.5 mg DAILY PO Last administered on 07/22/18 08:46; Admin Dose 0.5 MG; Start 07/18/18 at 09:00 Fluticasone/ Vilanterol (Breo Ellipta 100-25 Mcg Inh) 1 inh DAILY INH Last administered on 07/22/18at 08:46; Admin Dose 1 INH; Start 07/18/18 at 09:00 Metoprolol Succinate (Toprol Xl) 25 mg BID PO Last administered on 07/22/18 08:46; Admin Dose 25 MG; Start 07/18/18 at 09:00 Ondansetron HCl (Zofran Inj) 4 mg Q6H PRN IV NAUSEA AND/OR VOMITING; Start 07/18/18 at 01:30 Oxycodone/ Acetaminophen (Endocet (10/ 325)) 1 tab Q4H PRN PO MODERATE PAIN LEVEL 4-6 Last administered on 07/22/18at 09:57; Admin Dose 1 TAB; Start 07/18/18 at 01:30 Oxycodone/ Acetaminophen (Endocet (10/ 325)) 2 tab Q4H PRN PO MODERATE PAIN LEVEL 4-6 Last administered on 07/21/18 14:21; Admin Dose 2 TAB; Start 07/18/18 at 01:30 Acetaminophen (Tylenol Tab) 650 mg Q4H PRN PO MILD PAIN(1-3)OR ELEVATED TEMP; Start 07/18/18 at 01:30 Al Hydrox/Mg Hydrox/Simethicone (Mag-Al Plus) 15 ml Q6H PRN PO GASTROINTESTINAL UPSET; Start 07/18/18 at 01:30 Atorvastatin Calcium (Lipitor) 10 mg DAILY@21 PO Last administered on 07/21/18 21:04; Admin Dose 10 MG; Start 07/18/18 at 21:00 Bisacodyl (Dulcolax Supp) 10 mg DAILY PRN [place] CONSTIPATION; Start 07/18/18 at 01:30 Diphenhydramine HCl (Benadryl) 25 mg Q6H PRN PO ALLERGIC REACTION; Start 07/18/18 at 01:30 Docusate Sodium (Colace) 100 mg BID PO Last administered on 07/22/18 08:47; Admin Dose 100 MG; Start 07/18/18 at 09:00 Doxazosin Mesylate (Cardura) 4 mg HS PO Last administered on 07/21/18 21:05; Admin Dose 4 MG; Start 07/18/18 at 21:00 Senna (Senokot) 1 tab HS PO Last administered on 07/21/18 21:04; Admin Dose 1 TAB; Start 07/18/18 at 21:00 Magnesium Hydroxide (Milk Of Mag) 30 ml BID PRN PO CONSTIPATION; Start 07/18/18 at 01:30 Pantoprazole (Protonix Tab) 40 mg DAILY@06 PO Last administered on 07/22/18 05:44; Admin Dose 40 MG; Start 07/18/18 at 07:00 Lactulose (Enulose) 10 gm DAILY PRN PO CONSTIPATION Last administered on 07/19/18 07:12; Admin Dose 10 GM; Start 07/18/18 at 12:30 Bisacodyl (Dulcolax) 10 mg DAILY PRN PO CONSTIPATION; Start 07/18/18 at 13:00 Baclofen (Lioresal) 10 mg BID PO Last administered on 07/22/18at 08:47; Admin Dose 10 MG; Start 07/20/18 at 09:00 Gabapentin (Neurontin) 100 mg TID PO Last administered on 07/22/18at 08:47; Admin Dose 100 MG; Start 07/20/18 at 09:00 Docusate Sodium/ Ferrous Fumarate (Patrick-Sequels) 1 tab DAILY PO Last administered on 07/22/18at 08:46; Admin Dose 1 TAB; Start 07/20/18 at 13:30; Stop 08/19/18 at 13:29 Oxycodone/ Acetaminophen (Endocet (10/ 325)) 1 tab NOW PO Last administered on 07/22/18at 11:50; Admin Dose 1 TAB; Start 07/22/18 at 11:45; Stop 07/22/18 at 12:00 Hydromorphone HCl (Dilaudid) 1 mg Q4H PRN IV SEVERE PAIN LEVEL 7-10; Start 07/22/18 at 12:00 Assessment/Plan Additional Assessment/Plan Rehab- Lumbar radiculopathy status post decompression and fusion. Overall improving with rehabilitation Acute pain syndrome- overall improving Chronic obstructive pulmonary disease. Sleep apnea. Hyperlipidemia. Hypertension. Benign prostatic hypertrophy. Coronary artery disease. Anemia. Constipation-results with bowel program KINA WILL MD Jul 22, 2018 11:58
--- NOTE | 2018-07-22 12:08 | NUR ---
PT NOTE Made another attempt to see pt for PT tx. Pt refused d/t severe pain. states he's waiting for more pain meds. per Ailin, pain meds given at 1000am and Dr. Duncan ordered for another pain medication.
[2018-07-22 14:00] VITALS: BP 116/54; PULSE 88; RESP 20
--- NOTE | 2018-07-22 14:38 | PN ---
Date/Time of Note Date/Time of Note DATE: 07/22/18 TIME: 14:37 Assessment/Plan VTE Prophylaxis Risk score (from Ns)>0 risk: 6 SCD applied (from Ns): Yes Pharmacological prophylaxis: NA/contraindicated Pharm contraindication: surgical contra Lines/Catheters IV Catheter Type (from Nrsg): Saline Lock Urinary Cath still in place: No Assessment/Plan Result Diagram: 07/20/18 0645 07/22/18 0721 Results 24hrs Laboratory Tests Test 07/22/18 07:21 Sodium Level 134 L Potassium Level 4.0 Chloride Level 99 Carbon Dioxide Level 27 Anion Gap 8 Blood Urea Nitrogen 11 Creatinine 0.52 L Est Glomerular Filtrat Rate mL/min Glucose Level 105 Calcium Level 9.0 Subjective 24 Hr Interval Summary Free Text/Dictation looks better. still hi dose pain meds, but seems less focused on the pain issues. getting up and walking pretty well. up in chair on rounds k is normal now, other chems ok alert, lungs clear, no edema Musculoskeletal: bone/joint pain Exam/Review of Systems Vital Signs Vitals Vital Signs Date Temp Pulse Resp B/P (MAP) Pulse Ox O2 O2 Flow FiO2 Time Delivery Rate 07/22/18 98.1 71 18 152/72 96 Room Air 07:30 (98) Intake and Output 07/21/18 07/21/18 07/22/18 1515:00 23:00 07:00 IntakeIntake Total 1180 ml OutputOutput Total 980 ml 300 ml BalanceBalance 200 ml -300 ml Medications Medications Current Medications Phenol (Cepastat Lozenge) 1 lozenge PRN PRN [place] SORE THROAT; Start 07/18/18 at 01:30 Tamsulosin HCl (Flomax) 0.4 mg DAILY@21 PO Last administered on 07/21/18at 21:04; Admin Dose 0.4 MG; Start 07/18/18 at 21:00 Dutasteride (Avodart) 0.5 mg DAILY PO Last administered on 07/22/18at 08:46; Admin Dose 0.5 MG; Start 07/18/18 at 09:00 Fluticasone/ Vilanterol (Breo Ellipta 100-25 Mcg Inh) 1 inh DAILY INH Last administered on 07/22/18at 08:46; Admin Dose 1 INH; Start 07/18/18 at 09:00 Metoprolol Succinate (Toprol Xl) 25 mg BID PO Last administered on 07/22/18 08:46; Admin Dose 25 MG; Start 07/18/18 at 09:00 Ondansetron HCl (Zofran Inj) 4 mg Q6H PRN IV NAUSEA AND/OR VOMITING; Start 07/18/18 at 01:30 Oxycodone/ Acetaminophen (Endocet (10/ 325)) 1 tab Q4H PRN PO MODERATE PAIN LEVEL 4-6 Last administered on 07/22/18at 09:57; Admin Dose 1 TAB; Start 07/18/18 at 01:30 Oxycodone/ Acetaminophen (Endocet (10/ 325)) 2 tab Q4H PRN PO MODERATE PAIN LEVEL 4-6 Last administered on 07/21/18at 14:21; Admin Dose 2 TAB; Start 07/18/18 at 01:30 Acetaminophen (Tylenol Tab) 650 mg Q4H PRN PO MILD PAIN(1-3)OR ELEVATED TEMP; Start 07/18/18 at 01:30 Al Hydrox/Mg Hydrox/Simethicone (Mag-Al Plus) 15 ml Q6H PRN PO GASTROINTESTINAL UPSET; Start 07/18/18 at 01:30 Atorvastatin Calcium (Lipitor) 10 mg DAILY@21 PO Last administered on 07/21/18at 21:04; Admin Dose 10 MG; Start 07/18/18 at 21:00 Bisacodyl (Dulcolax Supp) 10 mg DAILY PRN [place] CONSTIPATION; Start 07/18/18 at 01:30 Diphenhydramine HCl (Benadryl) 25 mg Q6H PRN PO ALLERGIC REACTION; Start 07/18/18 at 01:30 Docusate Sodium (Colace) 100 mg BID PO Last administered on 07/22/18at 08:47; Admin Dose 100 MG; Start 07/18/18 at 09:00 Doxazosin Mesylate (Cardura) 4 mg HS PO Last administered on 07/21/18at 21:05; Admin Dose 4 MG; Start 07/18/18 at 21:00 Senna (Senokot) 1 tab HS PO Last administered on 07/21/18at 21:04; Admin Dose 1 TAB; Start 07/18/18 at 21:00 Magnesium Hydroxide (Milk Of Mag) 30 ml BID PRN PO CONSTIPATION; Start 07/18/18 at 01:30 Pantoprazole (Protonix Tab) 40 mg DAILY@06 PO Last administered on 07/22/18at 05:44; Admin Dose 40 MG; Start 07/18/18 at 07:00 Lactulose (Enulose) 10 gm DAILY PRN PO CONSTIPATION Last administered on 07/19/18at 07:12; Admin Dose 10 GM; Start 07/18/18 at 12:30 Bisacodyl (Dulcolax) 10 mg DAILY PRN PO CONSTIPATION; Start 07/18/18 at 13:00 Baclofen (Lioresal) 10 mg BID PO Last administered on 07/22/18at 08:47; Admin Dose 10 MG; Start 07/20/18 at 09:00 Gabapentin (Neurontin) 100 mg TID PO Last administered on 07/22/18at 13:57; Admin Dose 100 MG; Start 07/20/18 at 09:00 Docusate Sodium/ Ferrous Fumarate (Patrick-Sequels) 1 tab DAILY PO Last administered on 07/22/18at 08:46; Admin Dose 1 TAB; Start 07/20/18 at 13:30; Stop 08/19/18 at 13:29 Hydromorphone HCl (Dilaudid) 1 mg Q4H PRN IV SEVERE PAIN LEVEL 7-10; Start 07/22/18 at 12:00 JAN IRAHETA MD Jul 22, 2018 14:38
[2018-07-22 19:55] VITALS: BP 168/76; RESP 18
[2018-07-22] MEDS: SENNA TAB PO SCH (20:37)
[2018-07-22] MEDS: TAMSULOSIN (SR) 0.4 MG CAP PO SCH (20:38)
[2018-07-22] MEDS: ATORVASTATIN 10 MG TAB PO SCH (20:38)
[2018-07-22] MEDS: DOXAZOSIN 4 MG TAB PO SCH (20:39)
[2018-07-23 01:59] VITALS: BP 126/64; PULSE 72; RESP 18
[2018-07-23] MEDS: PANTOPRAZOLE (EC) 40 MG TAB PO SCH (05:18)
[2018-07-23] MEDS: OXYCODONE/ACETAMINOPHEN (10/325) TAB PO PRN ×5 (05:18→22:39)
--- NOTE | 2018-07-23 06:06 | NUR ---
Slept on and off. Medicated for back pain as needed with good effect. Voiding well using urinal. Needs attended. Call light within reached, bed alarm is activated. No acute distress noted.
[2018-07-23 07:00] VITALS: BP 151/72; PULSE 67; RESP 18
--- NOTE | 2018-07-23 07:38 | NUR ---
PT NOTE [id number] Attempted to see pt for PT tx. Pt adamantly refusing PT despite max encouragement, reports severe pain. Pt also reports he received pain meds earlier but is requesting for more pain meds. Also, pt states he "needs to see Dr. Terrazas today." RN notified of pt's requests.
[2018-07-23] MEDS: FLUTICASONE/VILANTEROL 100-25 INH SCH (08:34)
[2018-07-23] MEDS: FERROUS FUMARATE (SR) TAB PO SCH (08:34)
[2018-07-23] MEDS: GABAPENTIN 100 MG CAP PO SCH ×3 (08:34→21:06)
[2018-07-23] MEDS: DOCUSATE SODIUM 100 MG CAP PO SCH ×2 (08:34→21:06)
[2018-07-23] MEDS: BACLOFEN 10 MG TAB PO SCH ×2 (08:34→21:06)
[2018-07-23] MEDS: DUTASTERIDE 0.5 MG CAP PO SCH (08:34)
[2018-07-23] MEDS: METOPROLOL (XL) 25 MG TAB PO SCH ×2 (08:35→21:07)
--- NOTE | 2018-07-23 12:59 | PN ---
Date/Time of Note Date/Time of Note DATE: 07/23/18 TIME: 12:59 Subjective Overall improving Objective Vital Signs Date Temp Pulse Resp B/P (MAP) Pulse Ox O2 O2 Flow FiO2 Time Delivery Rate 07/23/18 97.8 67 18 151/72 94 Room Air 07:00 (98) Intake and Output 07/22/18 07/22/18 07/23/18 1414:59 22:59 06:59 IntakeIntake Total 890 ml 220 ml OutputOutput Total 340 ml 200 ml BalanceBalance 550 ml 20 ml Exam pulm-cta abd-soft min ambulation Results/Medications Result Diagram: 07/20/18 0645 07/22/18 0721 Medications Current Medications Phenol (Cepastat Lozenge) 1 lozenge PRN PRN [place] SORE THROAT; Start 07/18/18 at 01:30 Tamsulosin HCl (Flomax) 0.4 mg DAILY@21 PO Last administered on 07/22/18at 20:38; Admin Dose 0.4 MG; Start 07/18/18 at 21:00 Dutasteride (Avodart) 0.5 mg DAILY PO Last administered on 07/23/18at 08:34; Admin Dose 0.5 MG; Start 07/18/18 at 09:00 Fluticasone/ Vilanterol (Breo Ellipta 100-25 Mcg Inh) 1 inh DAILY INH Last administered on 07/23/18at 08:34; Admin Dose 1 INH; Start 07/18/18 at 09:00 Metoprolol Succinate (Toprol Xl) 25 mg BID PO Last administered on 07/23/18at 08:35; Admin Dose 25 MG; Start 07/18/18 at 09:00 Ondansetron HCl (Zofran Inj) 4 mg Q6H PRN IV NAUSEA AND/OR VOMITING; Start 07/18/18 at 01:30 Oxycodone/ Acetaminophen (Endocet (10/ 325)) 1 tab Q4H PRN PO MODERATE PAIN LEVEL 4-6 Last administered on 07/22/18 09:57; Admin Dose 1 TAB; Start 07/18/18 at 01:30 Oxycodone/ Acetaminophen (Endocet (10/ 325)) 2 tab Q4H PRN PO MODERATE PAIN LEVEL 4-6 Last administered on 07/23/18 09:57; Admin Dose 2 TAB; Start 07/18/18 at 01:30 Acetaminophen (Tylenol Tab) 650 mg Q4H PRN PO MILD PAIN(1-3)OR ELEVATED TEMP; Start 07/18/18 at 01:30 Al Hydrox/Mg Hydrox/Simethicone (Mag-Al Plus) 15 ml Q6H PRN PO GASTROINTESTINAL UPSET; Start 07/18/18 at 01:30 Atorvastatin Calcium (Lipitor) 10 mg DAILY@21 PO Last administered on 07/22/18 20:38; Admin Dose 10 MG; Start 07/18/18 at 21:00 Bisacodyl (Dulcolax Supp) 10 mg DAILY PRN [place] CONSTIPATION; Start 07/18/18 at 01:30 Diphenhydramine HCl (Benadryl) 25 mg Q6H PRN PO ALLERGIC REACTION; Start 07/18/18 at 01:30 Docusate Sodium (Colace) 100 mg BID PO Last administered on 07/23/18 08:34; Admin Dose 100 MG; Start 07/18/18 at 09:00 Doxazosin Mesylate (Cardura) 4 mg HS PO Last administered on 07/22/18 20:39; Admin Dose 4 MG; Start 07/18/18 at 21:00 Senna (Senokot) 1 tab HS PO Last administered on 07/22/18 20:37; Admin Dose 1 TAB; Start 07/18/18 at 21:00 Magnesium Hydroxide (Milk Of Mag) 30 ml BID PRN PO CONSTIPATION; Start 07/18/18 at 01:30 Pantoprazole (Protonix Tab) 40 mg DAILY@06 PO Last administered on 07/23/18 05:18; Admin Dose 40 MG; Start 07/18/18 at 07:00 Lactulose (Enulose) 10 gm DAILY PRN PO CONSTIPATION Last administered on 07/19/18 07:12; Admin Dose 10 GM; Start 07/18/18 at 12:30 Bisacodyl (Dulcolax) 10 mg DAILY PRN PO CONSTIPATION; Start 07/18/18 at 13:00 Baclofen (Lioresal) 10 mg BID PO Last administered on 07/23/18 08:34; Admin Dose 10 MG; Start 07/20/18 at 09:00 Gabapentin (Neurontin) 100 mg TID PO Last administered on 1/23/19at 08:34; Admin Dose 100 MG; Start 07/20/18 at 09:00 Docusate Sodium/ Ferrous Fumarate (Patrick-Sequels) 1 tab DAILY PO Last administered on 07/23/18at 08:34; Admin Dose 1 TAB; Start 07/20/18 at 13:30; Stop 08/19/18 at 13:29 Hydromorphone HCl (Dilaudid) 1 mg Q4H PRN IV SEVERE PAIN LEVEL 7-10; Start 07/22/18 at 12:00 Assessment/Plan Additional Assessment/Plan Rehab- Lumbar radiculopathy status post decompression and fusion. Progressing with treatment plan, continue rehab Acute pain syndrome-continue current meds Chronic obstructive pulmonary disease. Sleep apnea. Hyperlipidemia. Hypertension. Benign prostatic hypertrophy. Coronary artery disease. Anemia. Constipation-results with bowel program KINA WILL MD Jul 23, 2018 12:59
[2018-07-23 14:00] VITALS: BP 117/58; PULSE 91; RESP 18
--- NOTE | 2018-07-23 16:15 | PN ---
Date/Time of Note Date/Time of Note DATE: 07/23/18 TIME: 16:13 Assessment/Plan VTE Prophylaxis Risk score (from Ns)>0 risk: 7 SCD applied (from Ns): Yes Pharmacological prophylaxis: NA/contraindicated Pharm contraindication: surgical contra Lines/Catheters IV Catheter Type (from Nrsg): Saline Lock Urinary Cath still in place: No Assessment/Plan Result Diagram: 07/20/18 0645 07/22/18 0721 Subjective 24 Hr Interval Summary Free Text/Dictation post ant and posterior spinal surgery. foot drop is improved and he is doing well with pt the issue is pain, worse in the am better as the day goes on. aru staff dealing with slow wean of pain meds as able alet, vs ok, lungs clear, abd soft, ant dressing is clean, ext ok Musculoskeletal: back pain Exam/Review of Systems Vital Signs Vitals Vital Signs Date Temp Pulse Resp B/P (MAP) Pulse Ox O2 O2 Flow FiO2 Time Delivery Rate 07/23/18 98.1 91 18 117/58 97 Room Air 14:00 (77) Intake and Output 07/22/18 07/22/18 07/23/18 1515:00 23:00 07:00 IntakeIntake Total 890 ml 220 ml OutputOutput Total 340 ml 200 ml BalanceBalance 550 ml 20 ml Medications Medications Current Medications Phenol (Cepastat Lozenge) 1 lozenge PRN PRN [place] SORE THROAT; Start 07/18/18 at 01:30 Tamsulosin HCl (Flomax) 0.4 mg DAILY@21 PO Last administered on 07/22/18at 20:38; Admin Dose 0.4 MG; Start 07/18/18 at 21:00 Dutasteride (Avodart) 0.5 mg DAILY PO Last administered on 07/23/18at 08:34; Admin Dose 0.5 MG; Start 07/18/18 at 09:00 Fluticasone/ Vilanterol (Breo Ellipta 100-25 Mcg Inh) 1 inh DAILY INH Last administered on 07/23/18at 08:34; Admin Dose 1 INH; Start 07/18/18 at 09:00 Metoprolol Succinate (Toprol Xl) 25 mg BID PO Last administered on 07/23/18at 08:35; Admin Dose 25 MG; Start 07/18/18 at 09:00 Ondansetron HCl (Zofran Inj) 4 mg Q6H PRN IV NAUSEA AND/OR VOMITING; Start 07/18/18 at 01:30 Oxycodone/ Acetaminophen (Endocet (10/ 325)) 1 tab Q4H PRN PO MODERATE PAIN LEVEL 4-6 Last administered on 07/22/18 09:57; Admin Dose 1 TAB; Start 07/18/18 at 01:30 Oxycodone/ Acetaminophen (Endocet (10/ 325)) 2 tab Q4H PRN PO MODERATE PAIN LEVEL 4-6 Last administered on 07/23/18 14:10; Admin Dose 2 TAB; Start 07/18/18 at 01:30 Acetaminophen (Tylenol Tab) 650 mg Q4H PRN PO MILD PAIN(1-3)OR ELEVATED TEMP; Start 07/18/18 at 01:30 Al Hydrox/Mg Hydrox/Simethicone (Mag-Al Plus) 15 ml Q6H PRN PO GASTROINTESTINAL UPSET; Start 07/18/18 at 01:30 Atorvastatin Calcium (Lipitor) 10 mg DAILY@21 PO Last administered on 07/22/18 20:38; Admin Dose 10 MG; Start 07/18/18 at 21:00 Bisacodyl (Dulcolax Supp) 10 mg DAILY PRN [place] CONSTIPATION; Start 07/18/18 at 01:30 Diphenhydramine HCl (Benadryl) 25 mg Q6H PRN PO ALLERGIC REACTION; Start 07/18/18 at 01:30 Docusate Sodium (Colace) 100 mg BID PO Last administered on 07/23/18 08:34; Admin Dose 100 MG; Start 07/18/18 at 09:00 Doxazosin Mesylate (Cardura) 4 mg HS PO Last administered on 07/22/18 20:39; Admin Dose 4 MG; Start 07/18/18 at 21:00 Senna (Senokot) 1 tab HS PO Last administered on 07/22/18 20:37; Admin Dose 1 TAB; Start 07/18/18 at 21:00 Magnesium Hydroxide (Milk Of Mag) 30 ml BID PRN PO CONSTIPATION; Start 07/18/18 at 01:30 Pantoprazole (Protonix Tab) 40 mg DAILY@06 PO Last administered on 07/23/18 05:18; Admin Dose 40 MG; Start 07/18/18 at 07:00 Lactulose (Enulose) 10 gm DAILY PRN PO CONSTIPATION Last administered on 07/19/18at 07:12; Admin Dose 10 GM; Start 07/18/18 at 12:30 Bisacodyl (Dulcolax) 10 mg DAILY PRN PO CONSTIPATION; Start 07/18/18 at 13:00 Baclofen (Lioresal) 10 mg BID PO Last administered on 07/23/18at 08:34; Admin Dose 10 MG; Start 07/20/18 at 09:00 Gabapentin (Neurontin) 100 mg TID PO Last administered on 07/23/18at 14:09; Ad min Dose 100 MG; Start 07/20/18 at 09:00 Docusate Sodium/ Ferrous Fumarate (Patrick-Sequels) 1 tab DAILY PO Last administered on 07/23/18at 08:34; Admin Dose 1 TAB; Start 07/20/18 at 13:30; Stop 08/19/18 at 13:29 Hydromorphone HCl (Dilaudid) 1 mg Q4H PRN IV SEVERE PAIN LEVEL 7-10; Start 07/22/18 at 12:00 JAN IRAHETA MD Jul 23, 2018 16:15
--- NOTE | 2018-07-23 18:11 | NUR ---
RN note: Pt had pain early in the morning, but responded well to pain medications and therapy later in the day.Much less anxious throughout the day and in agreement with the plan of care.
--- NOTE | 2018-07-23 19:17 | CONS ---
DATE OF ADMISSION: 07/17/2018 DATE OF CONSULTATION: 07/23/2018 TYPE OF CONSULTATION: Psychological. REFERRING PHYSICIAN: Kina Ortiz MD CONSULTING PSYCHOLOGIST: Gianni Plunkett, PhD REASON FOR CONSULTATION: This consultation was requested by Dr. Perla Ortiz in order to evaluate t he cognitive and emotional functioning of this patient related to his present medical condition. HISTORY OF PRESENT ILLNESS: The patient is a 77-year-old male. He has a history of lumbar radiculop athy and previous microdiskectomy. The patient was having low back pain and eventually underwent a l umbar decompression and fusion. The patient was cleared medically and then sent to the acute rehabil itation unit for acute multidisciplinary rehabilitation. The patient is motivated to get better. Th e patient is very concerned actually about his who actually is battling bladder cancer. The pat ient does want to do whatever he can to increase his ability to function. FAMILY AND SOCIAL HISTORY: The patient lives in a home in a [address] in [place] with his . The patient did say his older son would come and help out when he got home. The patient does want to return there after discharge. The patient says that they are going to set up a bed on the rst floor after discharge. MEDICATIONS: The patient is currently not on any psychotropic medications. SUBSTANCE USE: The patient reports that he does not smoke. The patient reports that he does drink a lcohol occasionally. MENTAL STATUS EXAMINATION: APPEARANCE: The patient was seen in bed. Appears to be of average height and weight. The patient h as a stephenson and mustache. The patient is right-handed. BEHAVIOR: The patient was cooperative during the consultation. The patient did attempt to answer al l questions presented to him by the interviewer. MOOD AND AFFECT: The patient's mood appears to be slightly depressed. His affect does appear to be slightly anxious. The patient is aware of his anxiety and part of his anxiety relates to his concern about his . PERCEPTION: The patient reports no hallucinations or delusions. The patient was alert to person, pl olga, situation and time. MEMORY AND COGNITION: The patient's memory and cognition appear to be basically intact. He was able to recall recent and remote events. The patient was able to name the hospital. The patient was abl e to name the month and the year. 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 He could not remember who the governor of the state or the mayor of the city is. The patient was abl e to spell "world" backwards. The patient was able to do 5 serial-7 subtractions from 100. He made 1 error and then self-corrected. INTELLIGENCE: Intelligence appears to fall in the average range. INSIGHT: Good. JUDGMENT: Good. THOUGHT CONTENT: The patient is concerned about his present medical condition. The patient is frust rated about what was going on. The patient is motivated to help himself get as well as he can as fas t as he can get home and also help his . DISCUSSION: The patient can likely benefit from some cognitive/behavioral psychotherapy while he is on the unit. This psychotherapy would focus on his concerns about his as well as his own medica l problems. 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 Thank you very much, Dr. Perla Ortiz, for referring this individual. Please do not hesitate to [facility] if you have additional questions. Dictated By: GIANNI PLUNKETT PHD RK/HANY Conf#: [id number] DID#: [id number] CC: KINA ORTIZ MD; DEANNE NEWTON MD;*[facility]*
[2018-07-23 19:39] VITALS: BP 140/67; PULSE 71; RESP 18
[2018-07-23] MEDS: ATORVASTATIN 10 MG TAB PO SCH (21:06)
[2018-07-23] MEDS: TAMSULOSIN (SR) 0.4 MG CAP PO SCH (21:06)
[2018-07-23] MEDS: SENNA TAB PO SCH (21:06)
[2018-07-23] MEDS: DOXAZOSIN 4 MG TAB PO SCH (21:07)
--- NOTE | 2018-07-24 01:30 | NUR ---
Called Dr. Teran, pt unable to sleep, gave order of Ambien. Followed up.
[2018-07-24] MEDS: ZOLPIDEM 5 MG TAB PO PRN ×2 (01:55→21:33)
[2018-07-24 03:08] VITALS: BP 140/80; PULSE 70; RESP 19
[2018-07-24] MEDS: HYDROmorphONE 1 MG/ML SYG IV PRN ×4 (04:36→17:13)
--- NOTE | 2018-07-24 05:37 | NUR ---
Slept well after ambien. Medicated for back pain as needed with good effect. Voiding well using urinal. Needs attended. Call light within reached, bed alarm is activated. No acute distress noted.
[2018-07-24] MEDS: PANTOPRAZOLE (EC) 40 MG TAB PO SCH (05:55)
[2018-07-24 07:30] VITALS: BP 112/69; PULSE 70; RESP 20
[2018-07-24] MEDS: OXYCODONE/ACETAMINOPHEN (10/325) TAB PO PRN ×2 (08:37→17:50)
[2018-07-24] MEDS: DOCUSATE SODIUM 100 MG CAP PO SCH ×2 (09:00→21:34)
[2018-07-24] MEDS: METOPROLOL (XL) 25 MG TAB PO SCH ×2 (09:00→21:34)
--- NOTE | 2018-07-24 09:11 | PN ---
Date/Time of Note Date/Time of Note DATE: 07/24/18 TIME: 09:08 Assessment/Plan VTE Prophylaxis Risk score (from Ns)>0 risk: 7 SCD applied (from Ns): Yes Pharmacological prophylaxis: heparin Lines/Catheters IV Catheter Type (from Nrsg): Saline Lock Urinary Cath still in place: No Assessment/Plan Problems: (1) Status post lumbar and lumbosacral fusion by anterior technique Onset Date: ~ 07/14/2018 Status: Acute Comment: Regressing with physical therapy in the acute rehabilitation protocol. His pain control is not at goal. I am going to adjust him to have a higher dose of gabapentin at night which will make him sleepy but it will be at night so he can get by without and hopefully we can taper down the opiate therapy. Please note he did have reduction in dose but he is having poor tolerance to that. I hope with the gabapentin that we can get more mileage. (2) Status post lumbar spinal fusion Onset Date: ~ 07/15/2018 Status: Acute Comment: As above. (3) Essential hypertension Status: Chronic Comment: Adequate control (4) Benign prostatic hyperplasia Status: Chronic Comment: On full dose therapy Qualifiers: Lower urinary tract symptom presence: symptoms present Lower urinary tract symptom detail: urinary hesitancy Qualified Codes: N40.1 - Benign prostatic hyperplasia with lower urinary tract symptoms; R39.11 - Hesitancy of micturition (5) Postoperative anemia due to acute blood loss Status: Acute Comment: Stable and improving (6) Hyperlipidemia Status: Chronic Qualifiers: Hyperlipidemia type: pure hypercholesterolemia Qualified Codes: E78.00 - P ure hypercholesterolemia, unspecified (7) COPD (chronic obstructive pulmonary disease) Status: Chronic Comment: Adequate control Qualifiers: COPD type: chronic bronchitis Chronic bronchitis type: simple Qualified Codes: J41.0 - Simple chronic bronchitis (8) Obstructive sleep apnea Status: Chronic Comment: Noted. Result Diagram: 07/20/18 0645 07/22/18 0721 Subjective 24 Hr Interval Summary Free Text/Dictation Patient complains of significant pain in his back bilaterally. He is also having some difficulty emptying his bladder. Constitutional: no complaints (No fevers chills or sweats) Respiratory: no complaints Cardiovascular: no complaints Gastrointestinal: no complaints Genitourinary: other (Urinary hesitancy) Exam/Review of Systems Vital Signs Vitals Vital Signs Date Temp Pulse Resp B/P (MAP) Pulse Ox O2 O2 Flow FiO2 Time Delivery Rate 07/24/18 98.1 70 20 112/69 98 Room Air 07:30 (83) Intake and Output 07/23/18 07/23/18 07/24/18 1515:00 23:00 07:00 IntakeIntake Total 1800 ml 300 ml OutputOutput Total 1000 ml BalanceBalance 800 ml 300 ml Exam Constitutional: alert, oriented Respiratory: clear to auscultation, normal air movement Cardiovascular: regular rate and rhythm, nl pulses Gastrointestinal: soft, nl liver, spleen, non-tender Medications Medications Current Medications Phenol (Cepastat Lozenge) 1 lozenge PRN PRN MT SORE THROAT; Start 07/18/18 at 01:30 Tamsulosin HCl (Flomax) 0.4 mg DAILY@21 PO Last administered on 07/23/18 21:06; Admin Dose 0.4 MG; Start 07/18/18 at 21:00 Dutasteride (Avodart) 0.5 mg DAILY PO Last administered on 07/23/18 08:34; Admin Dose 0.5 MG; Start 07/18/18 at 09:00 Fluticasone/ Vilanterol (Breo Ellipta 100-25 Mcg Inh) 1 inh DAILY INH Last administered on 07/23/18 08:34; Admin Dose 1 INH; Start 07/18/18 at 09:00 Metoprolol Succinate (Toprol Xl) 25 mg BID PO Last administered on 07/23/18 21:07; Admin Dose 25 MG; Start 07/18/18 at 09:00 Ondansetron HCl (Zofran Inj) 4 mg Q6H PRN IV NAUSEA AND/OR VOMITING; Start 07/18/18 at 01:30 Oxycodone/ Acetaminophen (Endocet (10/ 325)) 1 tab Q4H PRN PO MODERATE PAIN LEVEL 4-6 Last administered on 07/22/18 09:57; Admin Dose 1 TAB; Start 07/18/18 at 01:30 Oxycodone/ Acetaminophen (Endocet (10/ 325)) 2 tab Q4H PRN PO MODERATE PAIN LEVEL 4-6 Last administered on 07/24/18 08:37; Admin Dose 2 TAB; Start 07/18/18 at 01:30 Acetaminophen (Tylenol Tab) 650 mg Q4H PRN PO MILD PAIN(1-3)OR ELEVATED TEMP; Start 07/18/18 at 01:30 Al Hydrox/Mg Hydrox/Simethicone (Mag-Al Plus) 15 ml Q6H PRN PO GASTROINTESTINAL UPSET; Start 07/18/18 at 01:30 Atorvastatin Calcium (Lipitor) 10 mg DAILY@21 PO Last administered on 07/23/18 21:06; Admin Dose 10 MG; Start 07/18/18 at 21:00 Bisacodyl (Dulcolax Supp) 10 mg DAILY PRN [place] CONSTIPATION; Start 07/18/18 at 01:30 Diphenhydramine HCl (Benadryl) 25 mg Q6H PRN PO ALLERGIC REACTION Last administered on 07/24/18 00:01; Admin Dose 25 MG; Start 07/18/18 at 01:30 Docusate Sodium (Colace) 100 mg BID PO Last administered on 07/23/18 21:06; Admin Dose 100 MG; Start 07/18/18 at 09:00 Doxazosin Mesylate (Cardura) 4 mg HS PO Last administered on 07/23/18 21:07; Admin Dose 4 MG; Start 07/18/18 at 21:00 Senna (Senokot) 1 tab HS PO Last administered on 07/23/18 21:06; Admin Dose 1 TAB; Start 07/18/18 at 21:00 Magnesium Hydroxide (Milk Of Mag) 30 ml BID PRN PO CONSTIPATION; Start 07/18/18 at 01:30 Pantoprazole (Protonix Tab) 40 mg DAILY@06 PO Last administered on 07/24/18 05:55; Admin Dose 40 MG; Start 07/18/18 at 07:00 Lactulose (Enulose) 10 gm DAILY PRN PO CONSTIPATION Last administered on 07/19/18 07:12; Admin Dose 10 GM; Start 07/18/18 at 12:30 Bisacodyl (Dulcolax) 10 mg DAILY PRN PO CONSTIPATION; Start 07/18/18 at 13:00 Baclofen (Lioresal) 10 mg BID PO Last administered on 07/23/18 21:06; Admin Dose 10 MG; Start 07/20/18 at 09:00 Gabapentin (Neurontin) 100 mg TID PO Last administered on 07/23/18 21:06; Admin Dose 100 MG; Start 07/20/18 at 09:00 Docusate Sodium/ Ferrous Fumarate (Patrick-Sequels) 1 tab DAILY PO Last ad ministered on 07/23/18at 08:34; Admin Dose 1 TAB; Start 07/20/18 at 13:30; Stop 08/19/18 at 13:29 Hydromorphone HCl (Dilaudid) 1 mg Q4H PRN IV SEVERE PAIN LEVEL 7-10 Last administered on 07/24/18at 07:15; Admin Dose 1 MG; Start 07/22/18 at 12:00 Zolpidem Tartrate (Ambien) 5 mg HS MAY REPEAT X 1 PRN PO INSOMNIA Last administered on 07/24/18at 01:55; Admin Dose 5 MG; Start 07/24/18 at 02:00 GAGE CASTILLO MD Jul 24, 2018 09:11
[2018-07-24] MEDS: FERROUS FUMARATE (SR) TAB PO SCH (10:17)
[2018-07-24] MEDS: FLUTICASONE/VILANTEROL 100-25 INH SCH (10:17)
[2018-07-24] MEDS: BACLOFEN 10 MG TAB PO SCH ×2 (10:18→21:33)
--- NOTE | 2018-07-24 12:07 | PN ---
Date/Time of Note Date/Time of Note DATE: 07/24/18 TIME: 12:06 Subjective Feeling better Objective Vital Signs Date Temp Pulse Resp B/P (MAP) Pulse Ox O2 O2 Flow FiO2 Time Delivery Rate 07/24/18 98.1 70 20 112/69 98 Room Air 07:30 (83) Intake and Output 07/23/18 07/23/18 07/24/18 1414:59 22:59 06:59 IntakeIntake Total 1800 ml 300 ml OutputOutput Total 1000 ml BalanceBalance 800 ml 300 ml Exam pulm-cta abd-soft cga ambulation Results/Medications Result Diagram: 07/20/18 0645 07/22/18 0721 Medications Current Medications Phenol (Cepastat Lozenge) 1 lozenge PRN PRN MT SORE THROAT; Start 07/18/18 at 01:30 Tamsulosin HCl (Flomax) 0.4 mg DAILY@21 PO Last administered on 07/23/18at 21:06; Admin Dose 0.4 MG; Start 07/18/18 at 21:00 Dutasteride (Avodart) 0.5 mg DAILY PO Last administered on 07/23/18at 08:34; Admin Dose 0.5 MG; Start 07/18/18 at 09:00 Fluticasone/ Vilanterol (Breo Ellipta 100-25 Mcg Inh) 1 inh DAILY INH Last administered on 07/24/18at 10:17; Admin Dose 1 INH; Start 07/18/18 at 09:00 Metoprolol Succinate (Toprol Xl) 25 mg BID PO Last administered on 07/23/18at 2 1:07; Admin Dose 25 MG; Start 07/18/18 at 09:00 Ondansetron HCl (Zofran Inj) 4 mg Q6H PRN IV NAUSEA AND/OR VOMITING; Start 07/18/18 at 01:30 Oxycodone/ Acetaminophen (Endocet (10/ 325)) 1 tab Q4H PRN PO MODERATE PAIN LEVEL 4-6 Last administered on 07/22/18at 09:57; Admin Dose 1 TAB; Start 07/18/18 at 01:30 Oxycodone/ Acetaminophen (Endocet (10/ 325)) 2 tab Q4H PRN PO MODERATE PAIN LEVEL 4-6 Last administered on 07/24/18at 08:37; Admin Dose 2 TAB; Start 07/18/18 at 01:30 Acetaminophen (Tylenol Tab) 650 mg Q4H PRN PO MILD PAIN(1-3)OR ELEVATED TEMP; Start 07/18/18 at 01:30 Al Hydrox/Mg Hydrox/Simethicone (Mag-Al Plus) 15 ml Q6H PRN PO GASTROINTESTINAL UPSET; Start 07/18/18 at 01:30 Atorvastatin Calcium (Lipitor) 10 mg DAILY@21 PO Last administered on 07/23/18 21:06; Admin Dose 10 MG; Start 07/18/18 at 21:00 Bisacodyl (Dulcolax Supp) 10 mg DAILY PRN [place] CONSTIPATION; Start 07/18/18 at 0 1:30 Diphenhydramine HCl (Benadryl) 25 mg Q6H PRN PO ALLERGIC REACTION Last administered on 07/24/18 00:01; Admin Dose 25 MG; Start 07/18/18 at 01:30 Docusate Sodium (Colace) 100 mg BID PO Last administered on 07/23/18 21:06; Admin Dose 100 MG; Start 07/18/18 at 09:00 Doxazosin Mesylate (Cardura) 4 mg HS PO Last administered on 07/23/18 21:07; Admin Dose 4 MG; Start 07/18/18 at 21:00 Senna (Senokot) 1 tab HS PO Last administered on 07/23/18 21:06; Admin Dose 1 TAB; Start 07/18/18 at 21:00 Magnesium Hydroxide (Milk Of Mag) 30 ml BID PRN PO CONSTIPATION; Start 07/18/18 at 01:30 Pantoprazole (Protonix Tab) 40 mg DAILY@06 PO Last administered on 07/24/18 05:55; Admin Dose 40 MG; Start 07/18/18 at 07:00 Lactulose (Enulose) 10 gm DAILY PRN PO CONSTIPATION Last administered on 07/19/18 07:12; Admin Dose 10 GM; Start 07/18/18 at 12:30 Bisacodyl (Dulcolax) 10 mg DAILY PRN PO CONSTIPATION; Start 07/18/18 at 13:00 Baclofen (Lioresal) 10 mg BID PO Last administered on 07/24/18 10:18; Admin Dose 10 MG; Start 07/20/18 at 09:00 Docusate Sodium/ Ferrous Fumarate (Patrick-Sequels) 1 tab DAILY PO Last administered on 07/24/18at 10:17; Admin Dose 1 TAB; Start 07/20/18 at 13:30; Stop 08/19/18 at 13:29 Zolpidem Tartrate (Ambien) 5 mg HS MAY REPEAT X 1 PRN PO INSOMNIA Last administered on 07/24/18at 01:55; Admin Dose 5 MG; Start 07/24/18 at 02:00 Gabapentin (Neurontin) 100 mg AC BREAKFAST DINNER PO ; Start 07/24/18 at 17:05 Hydromorphone HCl (Dilaudid) 2 mg Q4H PRN IV SEVERE PAIN LEVEL 7-10; Start 07/24/18 at 10:00 Gabapentin (Neurontin) 400 mg PC DINNER PO ; Start 07/24/18 at 18:35 Hydromorphone HCl (Dilaudid) 1 mg Q4H PRN IV MODERATE PAIN LEVEL 4-6; Start 07/24/18 at 09:00 Assessment/Plan Additional Assessment/Plan Rehab- Lumbar radiculopathy status post decompression and fusion. Progressing well with treatment plan Acute pain syndrome-continue current meds Chronic obstructive pulmonary disease. Sleep apnea. Hyperlipidemia. Hypertension. Benign prostatic hypertrophy. Coronary artery disease. Anemia. KINA WILL MD Jul 24, 2018 12:07
[2018-07-24 14:00] VITALS: BP 140/71; PULSE 72; RESP 20
[2018-07-24] MEDS: DUTASTERIDE 0.5 MG CAP PO SCH ×2 (14:54→15:01)
[2018-07-24] MEDS: GABAPENTIN 100 MG CAP PO SCH (17:05)
[2018-07-24] MEDS: GABAPENTIN 400 MG CAP PO SCH ×2 (17:50→17:52)
--- NOTE | 2018-07-24 19:00 | NUR ---
Nursing Notes: patient refused bladder scan, as per patient he is voiding well, stated his problem is pain on incision area . Will endorsed to RN ( Night ) to encourage patient.
[2018-07-24 19:24] VITALS: BP 124/65; PULSE 77; RESP 18
[2018-07-24] MEDS: HYDROmorphONE 2 MG/ML SYG IV PRN (21:19)
[2018-07-24] MEDS: TAMSULOSIN (SR) 0.4 MG CAP PO SCH (21:33)
[2018-07-24] MEDS: ATORVASTATIN 10 MG TAB PO SCH (21:33)
[2018-07-24] MEDS: SENNA TAB PO SCH (21:33)
[2018-07-24] MEDS: DOXAZOSIN 4 MG TAB PO SCH (21:34)
[2018-07-25] MEDS: HYDROmorphONE 2 MG/ML SYG IV PRN ×6 (01:10→22:23)
[2018-07-25 02:00] VITALS: BP 132/70; PULSE 82; RESP 18
[2018-07-25] MEDS: OXYCODONE/ACETAMINOPHEN (10/325) TAB PO PRN ×4 (06:29→20:18)
[2018-07-25] MEDS: PANTOPRAZOLE (EC) 40 MG TAB PO SCH (06:29)
--- NOTE | 2018-07-25 06:55 | NUR ---
Pt stable with no acute distress noted. Pain management given for pain with minimal relief. Spinal precaution observed. Pt remained continent of both bowel and bladder, Voiding good with no BM noted. Bladder scanned as ordered with no PVR noted. IV access reinserted on left forearm with good blood return. Hourly roundings done. Bed alarm activated. Both side rails up for safety. Will endorse pt to AM nurse.
[2018-07-25 07:00] VITALS: BP 113/55; PULSE 84; RESP 18
[2018-07-25] MEDS: METOPROLOL (XL) 25 MG TAB PO SCH ×2 (08:49→20:19)
[2018-07-25] MEDS: BACLOFEN 10 MG TAB PO SCH ×2 (08:49→20:18)
[2018-07-25] MEDS: FERROUS FUMARATE (SR) TAB PO SCH (08:49)
[2018-07-25] MEDS: GABAPENTIN 100 MG CAP PO SCH ×2 (08:50→17:22)
[2018-07-25] MEDS: DOCUSATE SODIUM 100 MG CAP PO SCH ×2 (08:50→20:18)
[2018-07-25] MEDS: FLUTICASONE/VILANTEROL 100-25 INH SCH (08:50)
--- NOTE | 2018-07-25 10:52 | PN ---
Date/Time of Note Date/Time of Note DATE: 07/25/18 TIME: 10:52 Objective Vital Signs Date Temp Pulse Resp B/P (MAP) Pulse Ox O2 O2 Flow FiO2 Time Delivery Rate 07/25/18 98.0 84 18 113/55 95 Room Air 07:00 (74) Intake and Output 07/24/18 07/24/18 07/25/18 1515:00 23:00 07:00 IntakeIntake Total 640 ml BalanceBalance 640 ml Results/Medications Result Diagram: 07/22/18 0721 Medications Current Medications Phenol (Cepastat Lozenge) 1 lozenge PRN PRN MT SORE THROAT; Start 07/18/18 at 01:30 Tamsulosin HCl (Flomax) 0.4 mg DAILY@21 PO Last administered on 07/24/18at 21:33; Admin Dose 0.4 MG; Start 07/18/18 at 21:00 Dutasteride (Avodart) 0.5 mg DAILY PO Last administered on 07/24/18at 15:01; Admin Dose 0.5 MG; Start 07/18/18 at 09:00 Fluticasone/ Vilanterol (Breo Ellipta 100-25 Mcg Inh) 1 inh DAILY INH Last administered on 07/25/18 08:50; Admin Dose 1 INH; Start 07/18/18 at 09:00 Metoprolol Succinate (Toprol Xl) 25 mg BID PO Last administered on 07/25/18at 08:49; Admin Dose 25 MG; Start 07/18/18 at 09:00 Ondansetron HCl (Zofran Inj) 4 mg Q6H PRN IV NAUSEA AND/OR VOMITING; Start 07/18/18 at 01:30 Oxycodone/ Acetaminophen (Endocet (10/ 325)) 1 tab Q4H PRN PO MODERATE PAIN LEVEL 4-6 Last administered on 07/22/18at 09:57; Admin Dose 1 TAB; Start 07/18/18 at 01:30 Oxycodone/ Acetaminophen (Endocet (10/ 325)) 2 tab Q4H PRN PO MODERATE PAIN LEVEL 4-6 Last administered on 07/25/18at 10:30; Admin Dose 2 TAB; Start 07/18/18 at 01:30 Acetaminophen (Tylenol Tab) 650 mg Q4H PRN PO MILD PAIN(1-3)OR ELEVATED TEMP; Start 07/18/18 at 01:30 Al Hydrox/Mg Hydrox/Simethicone (Mag-Al Plus) 15 ml Q6H PRN PO GASTROINTESTINAL UPSET; Start 07/18/18 at 01:30 Atorvastatin Calcium (Lipitor) 10 mg DAILY@21 PO Last administered on 07/24/18 21:33; Admin Dose 10 MG; Start 07/18/18 at 21:00 Bisacodyl (Dulcolax Supp) 10 mg DAILY PRN [place] CONSTIPATION; Start 07/18/18 at 01:30 Diphenhydramine HCl (Benadryl) 25 mg Q6H PRN PO ALLERGIC REACTION Last administered on 07/24/18 00:01; Admin Dose 25 MG; Start 07/18/18 at 01:30 Docusate Sodium (Colace) 100 mg BID PO Last administered on 07/25/18 08:50; Admin Dose 100 MG; Start 07/18/18 at 09:00 Doxazosin Mesylate (Cardura) 4 mg HS PO Last administered on 07/24/18 21:34; Admin Dose 4 MG; Start 07/18/18 at 21:00 Senna (Senokot) 1 tab HS PO Last administered on 07/24/18 21:33; Admin Dose 1 TAB; Start 07/18/18 at 21:00 Magnesium Hydroxide (Milk Of Mag) 30 ml BID PRN PO CONSTIPATION; Start 07/18/18 at 01:30 Pantoprazole (Protonix Tab) 40 mg DAILY@06 PO Last administered on 07/25/18 06:29; Admin Dose 40 MG; Start 07/18/18 at 07:00 Lactulose (Enulose) 10 gm DAILY PRN PO CONSTIPATION Last administered on 07/19/18 07:12; Admin Dose 10 GM; Start 07/18/18 at 12:30 Bisacodyl (Dulcolax) 10 mg DAILY PRN PO CONSTIPATION; Start 07/18/18 at 13:00 Baclofen (Lioresal) 10 mg BID PO Last administered on 07/25/18 08:49; Admin Dose 10 MG; Start 07/20/18 at 09:00 Docusate Sodium/ Ferrous Fumarate (Patrick-Sequels) 1 tab DAILY PO Last administered on 07/25/18 08:49; Admin Dose 1 TAB; Start 07/20/18 at 13:30; Stop 08/19/18 at 13:29 Zolpidem Tartrate (Ambien) 5 mg HS MAY REPEAT X 1 PRN PO INSOMNIA Last administered on 07/24/18at 21:33; Admin Dose 5 MG; Start 07/24/18 at 02:00 Gabapentin (Neurontin) 100 mg AC BREAKFAST DINNER PO Last administered on 07/25/18at 08:50; Admin Dose 100 MG; Start 07/24/18 at 17:05 Gabapentin (Neurontin) 400 mg PC DINNER PO Last administered on 07/24/18at 17:52; Admin Dose 400 MG; Start 07/24/18 at 18:35 Hydromorphone HCl (Dilaudid) 1 mg Q4H PRN IV MODERATE PAIN LEVEL 4-6; Start 07/24/18 at 09:00 Hydromorphone HCl (Dilaudid) 2 mg Q4H PRN IV SEVERE PAIN LEVEL 7-10 Last administered on 07/25/18at 09:15; Admin Dose 2 MG; Start 07/24/18 at 21:00 KINA WILL MD Jul 25, 2018 10:52
[2018-07-25 14:00] VITALS: BP 118/62; PULSE 87; RESP 18
[2018-07-25] MEDS: GABAPENTIN 400 MG CAP PO SCH (18:11)
--- NOTE | 2018-07-25 18:22 | NUR ---
POD # 10 SPINAL FUSION PT/OT IN THE CASE FOR STRENGTHENING BUE/BLE ABLE TO TOLERATE WELL W/ EPISODES OF PAIN DISCOMFORT 8-9/10 PAIN SCALE GIVEN DILAUDID IV PUSH AFTER 10-20 MINUTES SCALE 2-3/10. NO SOB , NO ACUTE DISTRESS AND VS WITHIN RANGE WILL CONTINUE POC
[2018-07-25 20:00] VITALS: BP 114/62; PULSE 94; RESP 18
[2018-07-25] MEDS: SENNA TAB PO SCH (20:18)
[2018-07-25] MEDS: ATORVASTATIN 10 MG TAB PO SCH (20:18)
[2018-07-25] MEDS: TAMSULOSIN (SR) 0.4 MG CAP PO SCH (20:19)
[2018-07-25] MEDS: DOXAZOSIN 4 MG TAB PO SCH (20:19)
[2018-07-25] MEDS: ZOLPIDEM 5 MG TAB PO PRN (22:24)
[2018-07-26 02:00] VITALS: BP 128/68; PULSE 85; RESP 18
[2018-07-26] MEDS: HYDROmorphONE 2 MG/ML SYG IV PRN ×9 (02:26→23:17)
[2018-07-26] MEDS: OXYCODONE/ACETAMINOPHEN (10/325) TAB PO PRN ×4 (04:45→22:16)
--- NOTE | 2018-07-26 05:50 | NUR ---
Pt remains stable with no acute distress noted. Pt slept on and off during the night d/t pain. Pt complained back pain and was medicated with PRN Dilaudid & Percocet as ordered. All due medications and all needs attended. Spinal precautions observed. Safety measures in place. Hourly roundings done. Bed alarm activated for safety. Call light and bedside table within reach. Will endorse pt to Am nurse.
[2018-07-26] MEDS: PANTOPRAZOLE (EC) 40 MG TAB PO SCH (06:22)
[2018-07-26 07:00] VITALS: BP 142/64; PULSE 82; RESP 16
[2018-07-26] MEDS: GABAPENTIN 100 MG CAP PO SCH ×2 (08:12→17:05)
[2018-07-26] MEDS: BACLOFEN 10 MG TAB PO SCH ×2 (08:14→21:05)
[2018-07-26] MEDS: METOPROLOL (XL) 25 MG TAB PO SCH ×2 (08:14→21:06)
[2018-07-26] MEDS: DUTASTERIDE 0.5 MG CAP PO SCH (08:14)
[2018-07-26] MEDS: DOCUSATE SODIUM 100 MG CAP PO SCH ×2 (08:14→21:05)
[2018-07-26] MEDS: FLUTICASONE/VILANTEROL 100-25 INH SCH (08:54)
[2018-07-26] MEDS: FERROUS FUMARATE (SR) TAB PO SCH (09:00)
--- NOTE | 2018-07-26 10:32 | PN ---
Date/Time of Note Date/Time of Note DATE: 07/26/18 TIME: 10:31 Subjective family conference held with patient and . Objective Vital Signs Date Temp Pulse Resp B/P (MAP) Pulse Ox O2 O2 Flow FiO2 Time Delivery Rate 07/26/18 97.9 82 16 142/64 96 Room Air 07:00 (90) Intake and Output 07/25/18 07/25/18 07/26/18 1414:59 22:59 06:59 IntakeIntake Total 1600 ml OutputOutput Total 1000 ml BalanceBalance 600 ml Exam pulm-cta abd-soft sba ambulation Results/Medications Result Diagram: 07/22/18 0721 Medications Current Medications Phenol (Cepastat Lozenge) 1 lozenge PRN PRN MT SORE THROAT; Start 07/18/18 at 01:30 Tamsulosin HCl (Flomax) 0.4 mg DAILY@21 PO Last administered on 07/25/18at 20:19; Admin Dose 0.4 MG; Start 07/18/18 at 21:00 Dutasteride (Avodart) 0.5 mg DAILY PO Last administered on 07/26/18 08:14; Admin Dose 0.5 MG; Start 07/18/18 at 09:00 Fluticasone/ Vilanterol (Breo Ellipta 100-25 Mcg Inh) 1 inh DAILY INH Last administered on 07/26/18 08:54; Admin Dose 1 INH; Start 07/18/18 at 09:00 Metoprolol Succinate (Toprol Xl) 25 mg BID PO Last administered on 07/26/18 08:14; Admin Dose 25 MG; Start 07/18/18 at 09:00 Ondansetron HCl (Zofran Inj) 4 mg Q6H PRN IV NAUSEA AND/OR VOMITING; Start 07/18/18 at 01:30 Oxycodone/ Acetaminophen (Endocet (10/ 325)) 1 tab Q4H PRN PO MODERATE PAIN LEVEL 4-6 Last administered on 07/22/18 09:57; Admin Dose 1 TAB; Start 07/18/18 at 01:30 Oxycodone/ Acetaminophen (Endocet (10/ 325)) 2 tab Q4H PRN PO MODERATE PAIN LEVEL 4-6 Last administered on 07/26/18 08:41; Admin Dose 2 TAB; Start 07/18/18 at 01:30 Acetaminophen (Tylenol Tab) 650 mg Q4H PRN PO MILD PAIN(1-3)OR ELEVATED TEMP; Start 07/18/18 at 01:30 Al Hydrox/Mg Hydrox/Simethicone (Mag-Al Plus) 15 ml Q6H PRN PO GASTROINTESTINAL UPSET; Start 07/18/18 at 01:30 Atorvastatin Calcium (Lipitor) 10 mg DAILY@21 PO Last administered on 07/25/18 20:18; Admin Dose 10 MG; Start 07/18/18 at 21:00 Bisacodyl (Dulcolax Supp) 10 mg DAILY PRN [place] CONSTIPATION; Start 07/18/18 at 01:30 Diphenhydramine HCl (Benadryl) 25 mg Q6H PRN PO ALLERGIC REACTION Last administered on 07/24/18at 00:01; Admin Dose 25 MG; Start 07/18/18 at 01:30 Docusate Sodium (Colace) 100 mg BID PO Last administered on 07/26/18at 08:14; Admin Dose 100 MG; Start 07/18/18 at 09:00 Doxazosin Mesylate (Cardura) 4 mg HS PO Last administered on 07/25/18 20:19; Admin Dose 4 MG; Start 07/18/18 at 21:00 Senna (Senokot) 1 tab HS PO Last administered on 07/25/18 20:18; Admin Dose 1 TAB; Start 07/18/18 at 21:00 Magnesium Hydroxide (Milk Of Mag) 30 ml BID PRN PO CONSTIPATION; Start 07/18/18 at 01:30 Pantoprazole (Protonix Tab) 40 mg DAILY@06 PO Last administered on 07/26/18at 06:22; Admin Dose 40 MG; Start 07/18/18 at 07:00 Lactulose (Enulose) 10 gm DAILY PRN PO CONSTIPATION Last administered on 07/19/18at 07:12; Admin Dose 10 GM; Start 07/18/18 at 12:30 Bisacodyl (Dulcolax) 10 mg DAILY PRN PO CONSTIPATION; Start 07/18/18 at 13:00 Baclofen (Lioresal) 10 mg BID PO Last administered on 07/26/18at 08:14; Admin Dose 10 MG; Start 07/20/18 at 09:00 Docusate Sodium/ Ferrous Fumarate (Patrick-Sequels) 1 tab DAILY PO Last administered on 07/25/18at 08:49; Admin Dose 1 TAB; Start 07/20/18 at 13:30; Stop 08/19/18 at 13:29 Zolpidem Tartrate (Ambien) 5 mg HS MAY REPEAT X 1 PRN PO INSOMNIA Last administered on 07/25/18at 22:24; Admin Dose 5 MG; Start 07/24/18 at 02:00 Gabapentin (Neurontin) 100 mg AC BREAKFAST DINNER PO Last administered on 07/26/18at 08:12; Admin Dose 100 MG; Start 07/24/18 at 17:05 Gabapentin (Neurontin) 400 mg PC DINNER PO Last administered on 07/25/18at 18:11; Admin Dose 400 MG; Start 07/24/18 at 18:35 Hydromorphone HCl (Dilaudid) 1 mg Q4H PRN IV MODERATE PAIN LEVEL 4-6; Start 07/24/18 at 09:00 Hydromorphone HCl (Dilaudid) 2 mg Q4H PRN IV SEVERE PAIN LEVEL 7-10 Last administered on 07/26/18at 06:18; Admin Dose 2 MG; Start 07/24/18 at 21:00 Assessment/Plan Additional Assessment/Plan Rehab- Lumbar radiculopathy status post decompression and fusion. Progressing well with treatment plan, working towards home this week Acute pain syndrome-continue current meds Chronic obstructive pulmonary disease. Sleep apnea. Hyperlipidemia. Hypertension. Benign prostatic hypertrophy. Coronary artery disease. Anemia. KINA WILL MD Jul 26, 2018 10:32
[2018-07-26 14:00] VITALS: BP 122/64; PULSE 74; RESP 18
[2018-07-26] MEDS ORDERED: KETOROLAC 30 MG INJ IV STA (16:54)
--- NOTE | 2018-07-26 17:58 | NUR ---
Nursing Notes: patient sent to Radiology for MRI of Lumbar Spine as per ordered by Dr. Terrazas
--- NOTE | 2018-07-26 18:00 | NUR ---
Nursing Notes: patient has been complaining of back pain on operative site since morning, instructed to give the Endocet 1 tab as ordered instead of 2 tabs then alternate with his IV pain medication. Ice pack applied as well for comfort. RN notified Dr. Terrazas about pain discomfort ( as per patient he is with pain at all times ) Dr. Terrazas ordered MRI and CT Scan of [place] Sacral region.
[2018-07-26] MEDS: GABAPENTIN 400 MG CAP PO SCH (18:35)
--- NOTE | 2018-07-26 19:16 | NUR ---
Nursing Notes: patient back from MRI @ 1910H and patient upset because his eyeglasses was missing, as per patient the fire investigator is aware. Endorsed to GHANSHYAM Cadena to follow up in MRI Department.
--- NOTE | 2018-07-26 19:30 | NUR ---
Nursing Notes: RN instructed patient to leave his eyeglasses prior going to MRI but refused , stated he can't see with out his eyeglasses then back from MRI Department with out the eyeglasses. Patient stated that the clinic cma took it from him and then sent back in the unit with out the eyeglasses.
--- NOTE | 2018-07-26 20:00 | NUR ---
Received patient very upset and kept on complaining about his eyeglasses that was left behind when he went for his MRI. Patient has been complaining that he cannot see without his glasses. Called MRI Department but nobody was answering. Called Security dept to have MRI dept open to obtain glasses but they dont have the keys of the certain room. Nursing debone supervisor was made aware and was told that we have to wait in AM for it to be opened. Explained to patient but patient was not very happy.
[2018-07-26 20:04] VITALS: BP 121/80; PULSE 91; RESP 19
--- NOTE | 2018-07-26 20:20 | NUR ---
Patient noted very agitated, cussing and yelling d/t pain. Patient complaining that he is in severe pain and medication slightly relieved him but does not last. He is asking for another pain medication that will help him. Patient just received PRN Dilaudid at 1913 and he is already in severe pain. Called and left message to Dr. Gregorio. Awaiting for call back.
--- NOTE | 2018-07-26 21:00 | NUR ---
Pt refuses to go for a CT scan unless pain is relieved. Pt getting more and more agitated d/t back pain. Dr. Gregorio has not yet called back. Called Dr. Duncan and notified of pt's complaints of pain, mentioned MRI result which says (Findings suspicious for right psoas abscesses at the upper L3 and L4 levels). Dr. Duncan with orders to change PRN Dilaudid from Q4H to Q2H. Orders noted and carried out. PRN Dilaudid given to patient with somewhat relief. Pt still refuses to go to CT scan and stated that he'll go as soon as pain is better. Will continue to monitor.
[2018-07-26] MEDS: ATORVASTATIN 10 MG TAB PO SCH (21:05)
[2018-07-26] MEDS: TAMSULOSIN (SR) 0.4 MG CAP PO SCH (21:05)
[2018-07-26] MEDS: SENNA TAB PO SCH (21:05)
[2018-07-26] MEDS: DOXAZOSIN 4 MG TAB PO SCH (21:06)
--- NOTE | 2018-07-26 23:35 | NUR ---
Pt left unit via bed for CT scan procedure. Pt in stable condition.
--- NOTE | 2018-07-27 | NUR ---
Pt came back from CT scan procedure at 2350pm. Pt in stable condition. Pt still complained of 8/10 pain. Informed patient of next due pain medication and verbalized understanding. Pt kept comfortable. Will continue to monitor patient.
[2018-07-27] MEDS: HYDROmorphONE 2 MG/ML SYG IV PRN ×9 (01:20→22:20)
--- NOTE | 2018-07-27 01:30 | NUR ---
Left message for Sonia Timmons (on-call of Dr. Terrazas) regarding STAT result for MRI and CT scan of Lumbar spine. Awaiting for call back.
--- NOTE | 2018-07-27 04:09 | NUR ---
Dr. Enciso (on-call MD for Dr. Gregorio) called back and notified of pt's condition. Informed her that I already received pain medication orders for patient from Dr. Duncan. Informed her also of MRI result, and that pt still has to go for CT scan. NNO. Will continue to monitor. Addendum: 07/27/18 at 0527 by CONNIE NUNEZ RN ADDENDUM: Dr. Enciso called back at around 2200pm.
[2018-07-27] MEDS: OXYCODONE/ACETAMINOPHEN (10/325) TAB PO PRN ×2 (04:24→08:38)
--- NOTE | 2018-07-27 05:29 | NUR ---
[facility] RN Weekly Summary Dates From: 07/21/18 to 07/27/18 Patient Name: JOHN MELO MR#: [id number] Height: 5 ft 6 in Weight: 187 lbs 9.814 oz 85.100 kg Reason for Visit: OTHER NEUROLOGICAL CONDITION Precautions: Fall/VTE/Pressure/Injury/Spinal Date: 07/27/18 Time: 0529 User: CONNIE SHANKARMARIO Short-term Goals: 1. Pt will have better control of pain 2. Pt will have no fall or injuries 3. Pt will not develop any pressure injuries 4. Regular pattern of B&B Patient's progress: Fair Short-term goals not met and reason/barriers: Ongoing Bladder - level of function and accidents: 4, No accident Bowel - level of function and accidents: 6, no accident Skin: non-intact Status: anterior abdomen and back-surgical site incision Treatment: open to air Changes: No s/s of infection Pain: yes Level: 7-10/10 Location: back pain radiating to legs and groin Management: DIlaudid IV and Endocet Po PRN Changes: Functional levels: Self Care: 5 Transfers: 4 Locomotion: 4-5 Assistance requirements: Communication: 6 Social Cognition: 5-6 Safety awareness: Yes, calls for assistance. Has bed alarm/chair alarm on for safety precaution. Interdisciplinary interactions: PT/OT/SW/RN/MD Patient education: Yes, q.shift and prn on medication, pain management, safety, use of call light. Discharge needs: Ongoing Comorbid conditions: 1. Acute pain syndrome. 2. Chronic obstructive pulmonary disease. 3. Sleep apnea. 4. Hyperlipidemia. 5. Hypertension. 6. Benign prostatic hypertrophy. 7. Coronary artery disease. 8. Anemia. 9. Constipation. 10. Impairments in self-care and mobility. Plan of Care continuation: Yes, continue current POC
[2018-07-27] MEDS: PANTOPRAZOLE (EC) 40 MG TAB PO SCH (05:55)
--- NOTE | 2018-07-27 06:40 | NUR ---
Left message again for Dr. Enciso(on-call for Dr. Terrazas) regarding STAT MRI & CT scan result. Awaiting for callback. Will followup with AM nurse.
--- NOTE | 2018-07-27 06:58 | NUR ---
Pt slept on and off last night d/t pain. Abdominal incision and back incision clean and dry, no s/s of infection noted. Pt still complaining back pain radiation to legs and groin, medicated with PRN Dilaudid 2mg IV Q2H and Percocet 2 tabs q4H simultaneously with minimal relief. Left message for Dr. Terrazas but still awaiting for callback regarding STAT CT scan and MRI result. All needs were given. Safety measures in place. Will endorse pt to AM nurse for followup.
[2018-07-27 07:00] VITALS: BP 134/65; PULSE 74; RESP 18
[2018-07-27] MEDS: FERROUS FUMARATE (SR) TAB PO SCH (08:39)
[2018-07-27] MEDS: GABAPENTIN 100 MG CAP PO SCH ×2 (08:39→18:09)
[2018-07-27] MEDS: DUTASTERIDE 0.5 MG CAP PO SCH (08:39)
[2018-07-27] MEDS: DOCUSATE SODIUM 100 MG CAP PO SCH ×2 (08:40→21:08)
[2018-07-27] MEDS: BACLOFEN 10 MG TAB PO SCH ×2 (08:40→21:08)
[2018-07-27] MEDS: METOPROLOL (XL) 25 MG TAB PO SCH ×2 (08:40→21:10)
[2018-07-27] MEDS: FLUTICASONE/VILANTEROL 100-25 INH SCH (08:41)
[2018-07-27 13:45] VITALS: BP 120/84; PULSE 75; RESP 16
--- NOTE | 2018-07-27 14:46 | CONS ---
Assessment/Plan Assessment/Plan Problems: (1) Pain Status: Chronic Comment: Acute on chronic pain. Difficult to control. Requiring increased frequency of opiates. (2) Status post lumbar spinal fusion Onset Date: ~ 07/15/2018 Status: Acute Comment: MRI and CT of spine ordered by Dr. Terrazas. Results inconclusive. Await Dr. Terrazas input. (3) Status post lumbar and lumbosacral fusion by anterior technique Onset Date: ~ 07/14/2018 Status: Acute Comment: see above (4) COPD (chronic obstructive pulmonary disease) Status: Chronic Comment: No issues Qualifiers: COPD type: chronic bronchitis Chronic bronchitis type: simple Qualified Codes: J41.0 - Simple chronic bronchitis (5) Hyperlipidemia Status: Chronic Comment: stable Qualifiers: Hyperlipidemia type: pure hypercholesterolemia Qualified Codes: E78.00 - Pure hypercholesterolemia, unspecified (6) Benign prostatic hyperplasia Status: Chronic Comment: no issues Qualifiers: Lower urinary tract symptom presence: symptoms present Lower urinary tract symptom detail: urinary hesitancy Qualified Codes: N40.1 - Benign prostatic hyperplasia with lower urinary tract symptoms; R39.11 - Hesitancy of micturition (7) Essential hypertension Status: Chronic Comment: good control Consultation Date/Type/Reason Admit Date/Time Jul 17, 2018 at 23:00 Initial Consult Date Type of Consult IM Date/Time of Note DATE: 07/27/18 TIME: 14:36 24 HR Interval Summary Free Text/Dictation Continued pain that patient describes as tightness in the lumbar region and radiates down left leg (occasionally the right). Exam/Review of Systems Exam Vitals Vital Signs Date Temp Pulse Resp B/P (MAP) Pulse Ox O2 O2 Flow FiO2 Time Delivery Rate 07/27/18 97.9 75 16 120/84 98 Room Air 13:45 (96) Intake and Output 07/26/18 07/26/18 07/27/18 1515:00 23:00 07:00 IntakeIntake Total 700 ml 1100 ml 100 ml OutputOutput Total 700 ml 850 ml BalanceBalance 700 ml 400 ml -750 ml Exam at bedside. Patient sitting in chair. Constitutional: well developed, other (groggy from pain medication) Neck: supple Respiratory: clear to auscultation Cardiovascular: regular rate and rhythm Musculoskeletal: nl extremities to inspection Imaging Imaging MRI and CT of spine results reviewed Medications Medication Current Medications Phenol (Cepastat Lozenge) 1 lozenge PRN PRN MT SORE THROAT; Start 07/18/18 at 01:30 Tamsulosin HCl (Flomax) 0.4 mg DAILY@21 PO Last administered on 07/26/18 21:05; Admin Dose 0.4 MG; Start 07/18/18 at 21:00 Dutasteride (Avodart) 0.5 mg DAILY PO Last administered on 07/27/18 08:39; Admin Dose 0.5 MG; Start 07/18/18 at 09:00 Fluticasone/ Vilanterol (Breo Ellipta 100-25 Mcg Inh) 1 inh DAILY INH Last administered on 07/27/18 08:41; Admin Dose 1 INH; Start 07/18/18 at 09:00 Metoprolol Succinate (Toprol Xl) 25 mg BID PO Last administered on 07/27/18 08:40; Admin Dose 25 MG; Start 07/18/18 at 09:00 Ondansetron HCl (Zofran Inj) 4 mg Q6H PRN IV NAUSEA AND/OR VOMITING; Start 07/18/18 at 01:30 Oxycodone/ Acetaminophen (Endocet (10/ 325)) 1 tab Q4H PRN PO MODERATE PAIN LEVEL 4-6 Last administered on 07/22/18 09:57; Admin Dose 1 TAB; Start 07/18/18 at 01:30 Oxycodone/ Acetaminophen (Endocet (10/ 325)) 2 tab Q4H PRN PO MODERATE PAIN LEVEL 4-6 Last administered on 07/27/18 08:38; Admin Dose 2 TAB; Start 07/18/18 at 01:30 Acetaminophen (Tylenol Tab) 650 mg Q4H PRN PO MILD PAIN(1-3)OR ELEVATED TEMP; Start 07/18/18 at 01:30 Al Hydrox/Mg Hydrox/Simethicone (Mag-Al Plus) 15 ml Q6H PRN PO GASTROINTESTINAL UPSET; Start 07/18/18 at 01:30 Atorvastatin Calcium (Lipitor) 10 mg DAILY@21 PO Last administered on 07/26/18at 21:05; Admin Dose 10 MG; Start 07/18/18 at 21:00 Bisacodyl (Dulcolax Supp) 10 mg DAILY PRN DE CONSTIPATION; Start 07/18/18 at 01:30 Diphenhydramine HCl (Benadryl) 25 mg Q6H PRN PO ALLERGIC REACTION Last administered on 07/24/18 00:01; Admin Dose 25 MG; Start 07/18/18 at 01:30 Docusate Sodium (Colace) 100 mg BID PO Last administered on 07/27/18 08:40; Admin Dose 100 MG; Start 07/18/18 at 09:00 Doxazosin Mesylate (Cardura) 4 mg HS PO Last administered on 07/26/18 21:06; Admin Dose 4 MG; Start 07/18/18 at 21:00 Senna (Senokot) 1 tab HS PO Last administered on 07/26/18 21:05; Admin Dose 1 TAB; Start 07/18/18 at 21:00 Magnesium Hydroxide (Milk Of Mag) 30 ml BID PRN PO CONSTIPATION; Start 07/18/18 at 01:30 Pantoprazole (Protonix Tab) 40 mg DAILY@06 PO Last administered on 07/27/18 05:55; Admin Dose 40 MG; Start 07/18/18 at 07:00 Lactulose (Enulose) 10 gm DAILY PRN PO CONSTIPATION Last administered on 07/19/18 07:12; Admin Dose 10 GM; Start 07/18/18 at 12:30 Bisacodyl (Dulcolax) 10 mg DAILY PRN PO CONSTIPATION Last administered on 07/27/18 10:06; Admin Dose 10 MG; Start 07/18/18 at 13:00 Baclofen (Lioresal) 10 mg BID PO Last administered on 07/27/18 08:40; Admin Dose 10 MG; Start 07/20/18 at 09:00 Docusate Sodium/ Ferrous Fumarate (Patrick-Sequels) 1 tab DAILY PO Last administered on 07/27/18 08:39; Admin Dose 1 TAB; Start 07/20/18 at 13:30; Stop 08/19/18 at 13:29 Zolpidem Tartrate (Ambien) 5 mg HS MAY REPEAT X 1 PRN PO INSOMNIA Last administered on 07/25/18 22:24; Admin Dose 5 MG; Start 07/24/18 at 02:00 Gabapentin (Neurontin) 100 mg AC BREAKFAST DINNER PO Last administered on 07/27/18 08:39; Admin Dose 100 MG; Start 07/24/18 at 17:05 Gabapentin (Neurontin) 400 mg PC DINNER PO Last administered on 07/25/18at 18:11; Admin Dose 400 MG; Start 07/24/18 at 18:35 Hydromorphone HCl (Dilaudid) 1 mg Q4H PRN IV MODERATE PAIN LEVEL 4-6; Start 07/24/18 at 09:00 Hydromorphone HCl (Dilaudid) 2 mg Q2H PRN IV SEVERE PAIN LEVEL 7-10 Last administered on 07/27/18at 12:14; Admin Dose 2 MG; Start 07/26/18 at 21:00 FELY JACOBSON MD Jul 27, 2018 14:46
[2018-07-27] MEDS: GABAPENTIN 400 MG CAP PO SCH (18:07)
--- NOTE | 2018-07-27 18:51 | NUR ---
End of shift- pt. sat in chair most of the morning. Still having back pain-received Dilaudid every 2-4 hours this shift with Endocet. Stands everytime he urinates. Glasses that were left in MRI returned.
--- NOTE | 2018-07-27 19:23 | NUR ---
RN followed up eyeglasses from MRI. Eyeglasses delivered to bedside by volunteer. Primary RN Sandra Reyes made aware.
[2018-07-27 20:10] VITALS: BP 155/82; PULSE 81; RESP 18
[2018-07-27] MEDS: ATORVASTATIN 10 MG TAB PO SCH (21:08)
[2018-07-27] MEDS: SENNA TAB PO SCH (21:08)
[2018-07-27] MEDS: TAMSULOSIN (SR) 0.4 MG CAP PO SCH (21:08)
[2018-07-27] MEDS: DOXAZOSIN 4 MG TAB PO SCH (21:10)
[2018-07-27] MEDS: ZOLPIDEM 5 MG TAB PO PRN (23:11)
[2018-07-28 02:00] VITALS: BP 140/73; PULSE 68; RESP 18
[2018-07-28] MEDS: PANTOPRAZOLE (EC) 40 MG TAB PO SCH (05:45)
[2018-07-28] MEDS: HYDROmorphONE 2 MG/ML SYG IV PRN ×9 (05:45→23:11)
--- NOTE | 2018-07-28 05:47 | NUR ---
End of Shift Note During the shift, pt voided several times on urinal in standing position. He received Dilaudid 2 mg/ ml IV as PRN mediction for pain in 2 occasions. They were effective. He also received Ambien 5 mg PO for insomnia. He slept well. Bed on lowest position, side rails up 2x, bed alarms on, and call light within reach. will continue to monitor
[2018-07-28] MEDS: GABAPENTIN 100 MG CAP PO SCH ×3 (07:44→20:46)
[2018-07-28 08:00] VITALS: BP 135/66; PULSE 96; RESP 18
[2018-07-28] MEDS: BACLOFEN 10 MG TAB PO SCH ×2 (08:34→20:45)
[2018-07-28] MEDS: FERROUS FUMARATE (SR) TAB PO SCH (08:34)
[2018-07-28] MEDS: FLUTICASONE/VILANTEROL 100-25 INH SCH (08:37)
[2018-07-28] MEDS: METOPROLOL (XL) 25 MG TAB PO SCH ×2 (08:37→20:45)
[2018-07-28] MEDS: DOCUSATE SODIUM 100 MG CAP PO SCH ×2 (08:37→20:45)
[2018-07-28] MEDS: OXYCODONE/ACETAMINOPHEN (10/325) TAB PO PRN ×2 (09:04→14:28)
[2018-07-28] MEDS: DUTASTERIDE 0.5 MG CAP PO SCH (10:10)
--- NOTE | 2018-07-28 12:20 | PN ---
Date/Time of Note Date/Time of Note DATE: 07/28/18 TIME: 12:20 Subjective Still with pain Objective Vital Signs Date Temp Pulse Resp B/P (MAP) Pulse Ox O2 O2 Flow FiO2 Time Delivery Rate 07/28/18 98.0 96 18 135/66 97 Room Air 08:00 (89) Intake and Output 07/27/18 07/27/18 07/28/18 1515:00 23:00 07:00 IntakeIntake Total 1200 ml 150 ml OutputOutput Total 75 ml 1500 ml 550 ml BalanceBalance 1125 ml -1350 ml -550 ml Exam INTERDISCIPLINARY TEAM CONFERENCE Physical Exam: Pulm-cta Abd-soft BOWEL- Cont BLADDER-Cont SKIN- intact OT- DRESSING-sba BATHING-sba TOILETING-sba PT- BED MOBILITY-sba TRANSFERS-cga AMBULATION-cga/sba 150 A/P- Interdisciplinary team conference held today. Please see interdisciplinary sheet. Working toward d.c. on 07/29 if stable with post discharge follow up of physical therapy, occupational therapy. Results/Medications Medications Current Medications Phenol (Cepastat Lozenge) 1 lozenge PRN PRN MT SORE THROAT; Start 07/18/18 at 01:30 Tamsulosin HCl (Flomax) 0.4 mg DAILY@21 PO Last administered on 07/27/18at 21:08; Admin Dose 0.4 MG; Start 07/18/18 at 21:00 Dutasteride (Avodart) 0.5 mg DAILY PO Last administered on 07/28/18at 10:10; Admin Dose 0.5 MG; Start 07/18/18 at 09:00 Fluticasone/ Vilanterol (Breo Ellipta 100-25 Mcg Inh) 1 inh DAILY INH Last administered on 07/28/18at 08:37; Admin Dose 1 INH; Start 07/18/18 at 09:00 Metoprolol Succinate (Toprol Xl) 25 mg BID PO Last administered on 07/28/18at 08:37; Admin Dose 25 MG; Start 07/18/18 at 09:00 Ondansetron HCl (Zofran Inj) 4 mg Q6H PRN IV NAUSEA AND/OR VOMITING; Start 07/18/18 at 01:30 Oxycodone/ Acetaminophen (Endocet (10/ 325)) 1 tab Q4H PRN PO MODERATE PAIN LEVEL 4-6 Last administered on 07/22/18 09:57; Admin Dose 1 TAB; Start 07/18/18 at 01:30 Oxycodone/ Acetaminophen (Endocet (10/ 325)) 2 tab Q4H PRN PO MODERATE PAIN LEVEL 4-6 Last administered on 07/28/18 09:04; Admin Dose 2 TAB; Start 07/18/18 at 01:30 Acetaminophen (Tylenol Tab) 650 mg Q4H PRN PO MILD PAIN(1-3)OR ELEVATED TEMP; Start 07/18/18 at 01:30 Al Hydrox/Mg Hydrox/Simethicone (Mag-Al Plus) 15 ml Q6H PRN PO GASTROINTESTINAL UPSET; Start 07/18/18 at 01:30 Atorvastatin Calcium (Lipitor) 10 mg DAILY@21 PO Last administered on 07/27/18 21:08; Admin Dose 10 MG; Start 07/18/18 at 21:00 Bisacodyl (Dulcolax Supp) 10 mg DAILY PRN NE CONSTIPATION; Start 07/18/18 at 01:30 Diphenhydramine HCl (Benadryl) 25 mg Q6H PRN PO ALLERGIC REACTION Last administered on 07/24/18 00:01; Admin Dose 25 MG; Start 07/18/18 at 01:30 Docusate Sodium (Colace) 100 mg BID PO Last administered on 07/28/18 08:37; Admin Dose 100 MG; Start 07/18/18 at 09:00 Doxazosin Mesylate (Cardura) 4 mg HS PO Last administered on 07/27/18 21:10; Admin Dose 4 MG; Start 07/18/18 at 21:00 Senna (Senokot) 1 tab HS PO Last administered on 07/27/18 21:08; Admin Dose 1 TAB; Start 07/18/18 at 21:00 Magnesium Hydroxide (Milk Of Mag) 30 ml BID PRN PO CONSTIPATION; Start 07/18/18 at 01:30 Pantoprazole (Protonix Tab) 40 mg DAILY@06 PO Last administered on 07/28/18 05:45; Admin Dose 40 MG; Start 07/18/18 at 07:00 Lactulose (Enulose) 10 gm DAILY PRN PO CONSTIPATION Last administered on 07/19/18 07:12; Admin Dose 10 GM; Start 07/18/18 at 12:30 Bisacodyl (Dulcolax) 10 mg DAILY PRN PO CONSTIPATION Last administered on 07/27/18 10:06; Admin Dose 10 MG; Start 07/18/18 at 13:00 Baclofen (Lioresal) 10 mg BID PO Last administered on 07/28/18 08:34; Admin Dose 10 MG; Start 07/20/18 at 09:00 Docusate Sodium/ Ferrous Fumarate (Patrick-Sequels) 1 tab DAILY PO Last administered on 07/28/18 08:34; Admin Dose 1 TAB; Start 07/20/18 at 13:30; Stop 08/19/18 at 13:29 Zolpidem Tartrate (Ambien) 5 mg HS MAY REPEAT X 1 PRN PO INSOMNIA Last administered on 07/27/18at 23:11; Admin Dose 5 MG; Start 07/24/18 at 02:00 Gabapentin (Neurontin) 100 mg AC BREAKFAST DINNER PO Last administered on 07/28/18at 07:44; Admin Dose 100 MG; Start 07/24/18 at 17:05 Gabapentin (Neurontin) 400 mg PC DINNER PO Last administered on 07/27/18 18:07; Admin Dose 400 MG; Start 07/24/18 at 18:35 Hydromorphone HCl (Dilaudid) 1 mg Q4H PRN IV MODERATE PAIN LEVEL 4-6; Start 07/24/18 at 09:00 Hydromorphone HCl (Dilaudid) 2 mg Q2H PRN IV SEVERE PAIN LEVEL 7-10 Last administered on 07/28/18at 10:06; Admin Dose 2 MG; Start 07/26/18 at 21:00 KINA WILL MD Jul 28, 2018 12:20
--- NOTE | 2018-07-28 12:21 | NUR ---
Nursing Notes: patient complaining of bilateral shoulder pain (patient stated that its cramping muscle pain ) while doing his therapywith PAULA Burns RN norified Dr. Duncan in person, will monitor, will call Dr. Terrazas as per patient requested.
[2018-07-28 14:00] VITALS: BP 157/85; PULSE 91; RESP 18
--- NOTE | 2018-07-28 14:35 | PN ---
Date/Time of Note Date/Time of Note DATE: 07/28/18 TIME: 14:31 Assessment/Plan Lines/Catheters IV Catheter Type (from Nrsg): Saline Lock Lares in Place (from Nrsg): No Assessment/Plan Assessment/Plan The patient completed a lumbar MRI and CT which I personally reviewed. The patient is afebrile. He denies chills. His back pain is now intermittent. The MRI shows a small fluid collection in the right psoas near L3 and L4 which is not seen on the CT scan. I spoke with the radiologist, Dr. Masterson, who states that it is too small for a biopsy and recommends observation. He cannot definitively state this is an abscess and may be post-surgical fluid or a hemat nicol. CBC, CRP, and ESR ordered. If normal, then he can be discharged tomorrow with follow-up arranged with the undersigned in the next 1-2 weeks at which time I will order another MRI to evaluate the fluid. Subjective 24 Hr Interval Summary patient states that his pain is intermittent Exam/Review of Systems Vital Signs Vitals Vital Signs Date Temp Pulse Resp B/P (MAP) Pulse Ox O2 O2 Flow FiO2 Time Delivery Rate 07/28/18 98.0 96 18 135/66 97 Room Air 08:00 (89) Intake and Output 07/27/18 07/27/18 07/28/18 1515:00 23:00 07:00 IntakeIntake Total 1200 ml 150 ml OutputOutput Total 75 ml 1500 ml 550 ml BalanceBalance 1125 ml -1350 ml -550 ml Exam Free Text/Dictation able to flex hips with minimal pain Results Result Diagram: 07/28/18 1351 DEANNE NEWTON MD Jul 28, 2018 14:35
--- NOTE | 2018-07-28 16:24 | NUR ---
Notified Dr. Duncan of patients labs. Gave order for am labs and no discharge tomorrow. Also left message with office for Dr. Terrazas, who is in surgery at this time.
--- NOTE | 2018-07-28 17:19 | QN ---
Documentation Comment patient's ESR, CRP, and WBC are elevated. will obtain ID consult with DEANNE Espinoza MD Jul 28, 2018 17:19
--- NOTE | 2018-07-28 18:13 | PN ---
Date/Time of Note Date/Time of Note DATE: 07/28/18 TIME: 18:10 Assessment/Plan VTE Prophylaxis Risk score (from [facility])>0 risk: 7 SCD applied (from [facility]): Yes Pharmacological prophylaxis: NA/contraindicated Pharm contraindication: surgical contra Lines/Catheters IV Catheter Type (from [facility]): [place] Urinary Cath still in place: No Assessment/Plan Result Diagram: 07/28/18 1445 07/28/18 1351 Results 24hrs Laboratory Tests Test 07/28/18 13:51 07/28/18 14:45 White Blood Count 12.4 #H 13.1 H Red Blood Count 3.15 #L 3.05 L Hemoglobin 10.5 #L 10.3 L Hematocrit 32.2 #L 31.0 L Mean Corpuscular Volume 102.2 H 101.6 H Mean Corpuscular Hemoglobin 33.3 H 33.8 H Mean Corpuscular Hemoglobin Concent 32.6 33.2 Red Cell Distribution Width 13.5 13.4 Platelet Count 581 #H 564 H Mean Platelet Volume 8.2 8.0 Immature Granulocytes % 0.600 H 0.400 Neutrophils % 84.7 H 81.7 H Lymphocytes % 6.9 L 8.4 L Monocytes % 7.0 8.8 Eosinophils % 0.5 0.5 Basophils % 0.3 0.2 Nucleated Red Blood Cells % 0.0 0.0 Immature Granulocytes # 0.070 H 0.050 H Neutrophils # 10.5 H 10.7 H Lymphocytes # 0.9 1.1 Monocytes # 0.9 1.2 H Eosinophils # 0.1 0.1 Basophils # 0.0 0.0 Nucleated Red Blood Cells # 0.0 0.0 Erythrocyte Sedimentation Rate 85 H Sodium Level 141 Potassium Level 4.3 Chloride Level 96 L Carbon Dioxide Level 30 Anion Gap 15 H Blood Urea Nitrogen 18 Creatinine 0.65 Est Glomerular Filtrat Rate mL/min Glucose Level 112 Calcium Level 9.6 C-Reactive Protein 5.6 H Subjective 24 Hr Interval Summary Free Text/Dictation still complaining of pain, mostly lateral rt back and flank area. mri results noted. does have crp, wbc elevation, id consult has been requested he remains alert and fluent without signs of toxicity. lungs clear, hr ok, abd soft, no bruising seen, surgical sites not draining to await i.d. Musculoskeletal: back pain Exam/Review of Systems Exam Vitals Vital Signs Date Temp Pulse Resp B/P (MAP) Pulse Ox O2 O2 Flow FiO2 Time Delivery Rate 07/28/18 98.1 91 18 157/85 99 Room Air 14:00 (109) Intake and Output 07/27/18 07/27/18 07/28/18 1515:00 23:00 07:00 IntakeIntake Total 1200 ml 150 ml OutputOutput Total 75 ml 1500 ml 550 ml BalanceBalance 1125 ml -1350 ml -550 ml Results Results 24hrs Laboratory Tests Test 07/28/18 13:51 07/28/18 14:45 White Blood Count 12.4 #H 13.1 H Red Blood Count 3.15 #L 3.05 L Hemoglobin 10.5 #L 10.3 L Hematocrit 32.2 #L 31.0 L Mean Corpuscular Volume 102.2 H 101.6 H Mean Corpuscular Hemoglobin 33.3 H 33.8 H Mean Corpuscular Hemoglobin Concent 32.6 33.2 Red Cell Distribution Width 13.5 13.4 Platelet Count 581 #H 564 H Mean Platelet Volume 8.2 8.0 Immature Granulocytes % 0.600 H 0.400 Neutrophils % 84.7 H 81.7 H Lymphocytes % 6.9 L 8.4 L Monocytes % 7.0 8.8 Eosinophils % 0.5 0.5 Basophils % 0.3 0.2 Nucleated Red Blood Cells % 0.0 0.0 Immature Granulocytes # 0.070 H 0.050 H Neutrophils # 10.5 H 10.7 H Lymphocytes # 0.9 1.1 Monocytes # 0.9 1.2 H Eosinophils # 0.1 0.1 Basophils # 0.0 0.0 Nucleated Red Blood Cells # 0.0 0.0 Erythrocyte Sedimentation Rate 85 H Sodium Level 141 Potassium Level 4.3 Chloride Level 96 L Carbon Dioxide Level 30 Anion Gap 15 H Blood Urea Nitrogen 18 Creatinine 0.65 Est Glomerular Filtrat Rate mL/min Glucose Level 112 Calcium Level 9.6 C-Reactive Protein 5.6 H Medications Medication Current Medications Phenol (Cepastat Lozenge) 1 lozenge PRN PRN MT SORE THROAT; Start 07/18/18 at 01:30 Tamsulosin HCl (Flomax) 0.4 mg DAILY@21 PO Last administered on 1/27/19at 21:08; Admin Dose 0.4 MG; Start 07/18/18 at 21:00 Dutasteride (Avodart) 0.5 mg DAILY PO Last administered on 07/28/18 10:10; Admin Dose 0.5 MG; Start 07/18/18 at 09:00 Fluticasone/ Vilanterol (Breo Ellipta 100-25 Mcg Inh) 1 inh DAILY INH Last administered on 07/28/18 08:37; Admin Dose 1 INH; Start 07/18/18 at 09:00 Metoprolol Succinate (Toprol Xl) 25 mg BID PO Last administered on 07/28/18 08:37; Admin Dose 25 MG; Start 07/18/18 at 09:00 Ondansetron HCl (Zofran Inj) 4 mg Q6H PRN IV NAUSEA AND/OR VOMITING; Start 07/18/18 at 01:30 Oxycodone/ Acetaminophen (Endocet (10/ 325)) 1 tab Q4H PRN PO MODERATE PAIN LEVEL 4-6 Last administered on 07/22/18 09:57; Admin Dose 1 TAB; Start 07/18/18 at 01:30 Oxycodone/ Acetaminophen (Endocet (10/ 325)) 2 tab Q4H PRN PO MODERATE PAIN LEVEL 4-6 Last administered on 07/28/18 14:28; Admin Dose 2 TAB; Start 07/18/18 at 01:30 Acetaminophen (Tylenol Tab) 650 mg Q4H PRN PO MILD PAIN(1-3)OR ELEVATED TEMP; Start 07/18/18 at 01:30 Al Hydrox/Mg Hydrox/Simethicone (Mag-Al Plus) 15 ml Q6H PRN PO GASTROINTESTINAL UPSET; Start 07/18/18 at 01:30 Atorvastatin Calcium (Lipitor) 10 mg DAILY@21 PO Last administered on 07/27/18 21:08; Admin Dose 10 MG; Start 07/18/18 at 21:00 Bisacodyl (Dulcolax Supp) 10 mg DAILY PRN [place] CONSTIPATION; Start 07/18/18 at 01:30 Diphenhydramine HCl (Benadryl) 25 mg Q6H PRN PO ALLERGIC REACTION Last administered on 07/24/18 00:01; Admin Dose 25 MG; Start 07/18/18 at 01:30 Docusate Sodium (Colace) 100 mg BID PO Last administered on 07/28/18 08:37; Admin Dose 100 MG; Start 07/18/18 at 09:00 Doxazosin Mesylate (Cardura) 4 mg HS PO Last administered on 07/27/18 21:10; Admin Dose 4 MG; Start 07/18/18 at 21:00 Senna (Senokot) 1 tab HS PO Last administered on 07/27/18 21:08; Admin Dose 1 TAB; Start 07/18/18 at 21:00 Magnesium Hydroxide (Milk Of Mag) 30 ml BID PRN PO CONSTIPATION; Start 07/18/18 at 01:30 Pantoprazole (Protonix Tab) 40 mg DAILY@06 PO Last administered on 07/28/18 05:45; Admin Dose 40 MG; Start 07/18/18 at 07:00 Lactulose (Enulose) 10 gm DAILY PRN PO CONSTIPATION Last administered on 07/19/18 07:12; Admin Dose 10 GM; Start 07/18/18 at 12:30 Bisacodyl (Dulcolax) 10 mg DAILY PRN PO CONSTIPATION Last administered on 07/27/18 10:06; Admin Dose 10 MG; Start 07/18/18 at 13:00 Baclofen (Lioresal) 10 mg BID PO Last administered on 07/28/18 08:34; Admin Dose 10 MG; Start 07/20/18 at 09:00 Docusate Sodium/ Ferrous Fumarate (Patrick-Sequels) 1 tab DAILY PO Last administered on 07/28/18 08:34; Admin Dose 1 TAB; Start 07/20/18 at 13:30; Stop 08/19/18 at 13:29 Zolpidem Tartrate (Ambien) 5 mg HS MAY REPEAT X 1 PRN PO INSOMNIA Last administered on 07/27/18 23:11; Admin Dose 5 MG; Start 07/24/18 at 02:00 Gabapentin (Neurontin) 400 mg PC DINNER PO Last administered on 07/27/18 18:07; Admin Dose 400 MG; Start 07/24/18 at 18:35 Hydromorphone HCl (Dilaudid) 1 mg Q4H PRN IV MODERATE PAIN LEVEL 4-6; Start 07/24/18 at 09:00 Hydromorphone HCl (Dilaudid) 2 mg Q2H PRN IV SEVERE PAIN LEVEL 7-10 Last administered on 07/28/18at 16:49; Admin Dose 2 MG; Start 07/26/18 at 21:00 Gabapentin (Neurontin) 200 mg TID PO Last administered on 07/28/18at 14:28; A dmin Dose 200 MG; Start 07/28/18 at 13:00 JAN IRAHETA MD Jul 28, 2018 18:13
[2018-07-28] MEDS: GABAPENTIN 400 MG CAP PO SCH (18:27)
[2018-07-28 20:00] VITALS: BP 140/81; PULSE 64; RESP 18
[2018-07-28] MEDS: SENNA TAB PO SCH (20:45)
[2018-07-28] MEDS: TAMSULOSIN (SR) 0.4 MG CAP PO SCH (20:45)
[2018-07-28] MEDS: ATORVASTATIN 10 MG TAB PO SCH (20:46)
[2018-07-28] MEDS: DOXAZOSIN 4 MG TAB PO SCH (20:46)
[2018-07-28] MEDS: ZOLPIDEM 5 MG TAB PO PRN (23:11)
[2018-07-29 02:00] VITALS: BP 123/70; PULSE 67; RESP 18
[2018-07-29] MEDS: HYDROmorphONE 2 MG/ML SYG IV PRN ×10 (03:00→21:45)
--- NOTE | 2018-07-29 06:00 | NUR ---
End of Shift Note During the shift, pt received Dulcolax 10 mg 1 suppository given rectally. BM 1x moderate in amount. Pt voided several times using urinal. He received Dilaudid 2 mg/ ml IV as PRN medication for pain at 2045, 2310 and 529. They were effective. He also received Ambien 5 mg PO for insomnia. He slept well. Bed on lowest position, side rails up 2x, bed alarms on, and call light within reach. will continue to monitor
[2018-07-29] MEDS: PANTOPRAZOLE (EC) 40 MG TAB PO SCH (06:51)
[2018-07-29 07:30] VITALS: BP 118/57; PULSE 64; RESP 20
[2018-07-29] MEDS: DOCUSATE SODIUM 100 MG CAP PO SCH ×2 (08:48→21:02)
[2018-07-29] MEDS: OXYCODONE/ACETAMINOPHEN (10/325) TAB PO PRN ×3 (08:53→16:43)
--- NOTE | 2018-07-29 08:56 | CONS ---
Assessment/Plan Assessment/Plan Hospital Course (Demo Recall) 1) s/p lumbar decompression surgery and question of R psoas abscess increase pain to site started soon after surgery and has persisted MRI suggests a R psoas fluid collection (?abscess) but a CT of area does not confirm a fluid collection He is not acting like an abscess with F, C He does not have more pain on R with flexion of hips I will review the MRI and CT with radiology but his WBC is improved today which makes infection less likely He had pseudogout diagnosed by path on the surgical site consider NSAIDS and/or colchicine to see if this might improve his pain there was a question of early lymphoma but the confirmation from [facility] is not back yet No doubt pt has an acute inflammatory process going on with the elevated platelets and CRP and the high ESR lymphoma, pseudogout, recent surgery and infection can all cause this individually or in some combination I will order procalcitonin as in infectious inflammatory process this is often elevated and in non infectious reasons it should be normal After I review the xrays I will add an addendum. Consultation Date/Type/Reason Admit Date/Time Jul 17, 2018 at 23:00 Date of Consultation: Jul 29, 2018 Type of Consult ID Date/Time of Note DATE: 07/29/18 TIME: 08:39 Hx of Present Illness pt has chronic back pain and had lumbar decompression surgery on 07/15/18 he was transferred to rehab on 07/17 and pt states he had increase pain to back at that time He states the pain is unrelenting and it may have gotten worse and it travels down both legs He denies F, C, NS No N, V, D his weight has been stable and appetite has been fine [employer] no diarrhea and he is having BM's no abd pain, joint pains other than back, rashes Past Medical History chronic back pain, COPD, sleep apnea, hyperlipidemia, BPH, HTN, lumbar radiculopathy, CAD Home Meds Reported Medications Aspirin (Low Dose Aspirin) 81 Mg Tablet.dr, 81 MG PO DAILY, #30 TAB 07/14/18 Dutasteride* (Avodart*) 0.5 Mg Capsule, 0.5 MG PO DAILY, CAP 07/14/18 Metoprolol Succinate* (Toprol XL*) 25 Mg Tab.sr.24h, 25 MG PO DAILY, #30 TAB 07/14/18 Cyclobenzaprine Hcl* (Cyclobenzaprine Hcl*) 10 Mg Tablet, 10 MG PO BID PRN for MUSCLE SPASMS, #60 TAB 07/14/18 Doxazosin Mesylate* (Doxazosin Mesylate*) 8 Mg Tablet, 8 MG PO HS, TAB 07/14/18 Atorvastatin Calcium (Atorvastatin Calcium) 10 Mg Tablet, 10 MG PO QHS, #30 TAB 07/14/18 Medications Current Medications Phenol (Cepastat Lozenge) 1 lozenge PRN PRN MT SORE THROAT; Start 07/18/18 at 01:30 Tamsulosin HCl (Flomax) 0.4 mg DAILY@21 PO Last administered on 07/28/18at 20:45; Admin Dose 0.4 MG; Start 07/18/18 at 21:00 Dutasteride (Avodart) 0.5 mg DAILY PO Last administered on 07/28/18 10:10; Admin Dose 0.5 MG; Start 07/18/18 at 09:00 Fluticasone/ Vilanterol (Breo Ellipta 100-25 Mcg Inh) 1 inh DAILY INH Last adm inistered on 07/28/18at 08:37; Admin Dose 1 INH; Start 07/18/18 at 09:00 Metoprolol Succinate (Toprol Xl) 25 mg BID PO Last administered on 07/28/18 20:45; Admin Dose 25 MG; Start 07/18/18 at 09:00 Ondansetron HCl (Zofran Inj) 4 mg Q6H PRN IV NAUSEA AND/OR VOMITING; Start 07/18/18 at 01:30 Oxycodone/ Acetaminophen (Endocet (10/ 325)) 1 tab Q4H PRN PO MODERATE PAIN LEVEL 4-6 Last administered on 07/22/18 09:57; Admin Dose 1 TAB; Start 07/18/18 at 01:30 Oxycodone/ Acetaminophen (Endocet (10/ 325)) 2 tab Q4H PRN PO MODERATE PAIN LEVEL 4-6 Last administered on 07/28/18 14:28; Admin Dose 2 TAB; Start 07/18/18 at 01:30 Acetaminophen (Tylenol Tab) 650 mg Q4H PRN PO MILD PAIN(1-3)OR ELEVATED TEMP; Start 07/18/18 at 01:30 Al Hydrox/Mg Hydrox/Simethicone (Mag-Al Plus) 15 ml Q6H PRN PO GASTROINTESTINAL UPSET; Start 07/18/18 at 01:30 Atorvastatin Calcium (Lipitor) 10 mg DAILY@21 PO Last administered on 07/28/18 20:46; Admin Dose 10 MG; Start 07/18/18 at 21:00 Bisacodyl (Dulcolax Supp) 10 mg DAILY PRN CA CONSTIPATION Last administered on 07/28/18 20:45; Admin Dose 10 MG; Start 07/18/18 at 01:30 Diphenhydramine HCl (Benadryl) 25 mg Q6H PRN PO ALLERGIC REACTION Last administered on 07/24/18 00:01; Admin Dose 25 MG; Start 07/18/18 at 01:30 Docusate Sodium (Colace) 100 mg BID PO Last administered on 07/28/18 20:45; Admin Dose 100 MG; Start 07/18/18 at 09:00 Doxazosin Mesylate (Cardura) 4 mg HS PO Last administered on 07/28/18 20:46; Admin Dose 4 MG; Start 07/18/18 at 21:00 Senna (Senokot) 1 tab HS PO Last administered on 07/28/18 20:45; Admin Dose 1 TAB; Start 07/18/18 at 21:00 Magnesium Hydroxide (Milk Of Mag) 30 ml BID PRN PO CONSTIPATION; Start 07/18/18 at 01:30 Pantoprazole (Protonix Tab) 40 mg DAILY@06 PO Last administered on 07/29/18 06:51; Admin Dose 40 MG; Start 07/18/18 at 07:00 Lactulose (Enulose) 10 gm DAILY PRN PO CONSTIPATION Last administered on 07:12; Admin Dose 10 GM; Start 07/18/18 at 12:30 Bisacodyl (Dulcolax) 10 mg DAILY PRN PO CONSTIPATION Last administered on 07/27/18 10:06; Admin Dose 10 MG; Start 07/18/18 at 13:00 Baclofen (Lioresal) 10 mg BID PO Last administered on 07/28/18 20:45; Admin Dose 10 MG; Start 07/20/18 at 09:00 Docusate Sodium/ Ferrous Fumarate (Patrick-Sequels) 1 tab DAILY PO Last administered on 1/28/19at 08:34; Admin Dose 1 TAB; Start 07/20/18 at 13:30; Stop 08/19/18 at 13:29 Zolpidem Tartrate (Ambien) 5 mg HS MAY REPEAT X 1 PRN PO INSOMNIA Last administered on 07/28/18at 23:11; Admin Dose 5 MG; Start 07/24/18 at 02:00 Gabapentin (Neurontin) 400 mg PC DINNER PO Last administered on 07/28/18at 18 :27; Admin Dose 400 MG; Start 07/24/18 at 18:35 Hydromorphone HCl (Dilaudid) 1 mg Q4H PRN IV MODERATE PAIN LEVEL 4-6; Start 07/24/18 at 09:00 Hydromorphone HCl (Dilaudid) 2 mg Q2H PRN IV SEVERE PAIN LEVEL 7-10 Last administered on 07/29/18at 07:41; Admin Dose 2 MG; Start 07/26/18 at 21:00 Gabapentin (Neurontin) 200 mg TID PO Last administered on 07/28/18at 20:46; Admin Dose 200 MG; Start 07/28/18 at 13:00 Allergies: Coded Allergies: No Known Allergy (Unverified , 07/14/18) Past Surgical History cardiac stents Social History Smoking Status: Never smoker Exam/Review of Systems Exam Vitals Vital Signs Date Temp Pulse Resp B/P (MAP) Pulse Ox O2 O2 Flow FiO2 Time Delivery Rate 07/29/18 98.0 67 18 123/70 97 Room Air 02:00 (87) Intake and Output 07/28/18 07/28/18 07/29/18 1515:00 23:00 07:00 IntakeIntake Total 200 ml 1350 ml 100 ml OutputOutput Total 50 ml 800 ml 850 ml BalanceBalance 150 ml 550 ml -750 ml Constitutional: alert, oriented Eyes: nl sclera ENMT: mucosa pink and moist Respiratory: clear to auscultation Cardiovascular: regular rate and rhythm Gastrointestinal: soft, non-tender, other (abd surgical site is ok, no redness) Musculoskeletal: other (back surgical site is ok, no redness, swelling, heat) Extremities: other Neurological: other (pt has equal pain with straight leg raising on L and R) Results Result Diagram: 07/29/18 0604 07/28/18 1351 Results 24hrs Laboratory Tests Test 07/28/18 13:51 07/28/18 14:45 07/29/18 06:04 White Blood Count 12.4 #H 13.1 H 11.6 H Red Blood Count 3.15 #L 3.05 L 2.83 L Hemoglobin 10.5 #L 10.3 L 9.5 L Hematocrit 32.2 #L 31.0 L 29.0 L Mean Corpuscular Volume 102.2 H 101.6 H 102.5 H Mean Corpuscular Hemoglobin 33.3 H 33.8 H 33.6 H Mean Corpuscular Hemoglobin Concent 32.6 33.2 32.8 Red Cell Distribution Width 13.5 13.4 13.4 Platelet Count 581 #H 564 H 504 H Mean Platelet Volume 8.2 8.0 8.3 Immature Granulocytes % 0.600 H 0.400 0.600 H Neutrophils % 84.7 H 81.7 H 78.5 H Lymphocytes % 6.9 L 8.4 L 10.0 L Monocytes % 7.0 8.8 10.1 Eosinophils % 0.5 0.5 0.5 Basophils % 0.3 0.2 0.3 Nucleated Red Blood Cells % 0.0 0.0 0.0 Immature Granulocytes # 0.070 H 0.050 H 0.070 H Neutrophils # 10.5 H 10.7 H 9.1 H Lymphocytes # 0.9 1.1 1.2 Monocytes # 0.9 1.2 H 1.2 H Eosinophils # 0.1 0.1 0.1 Basophils # 0.0 0.0 0.0 Nucleated Red Blood Cells # 0.0 0.0 0.0 Erythrocyte Sedimentation Rate 85 H Sodium Level 141 Potassium Level 4.3 Chloride Level 96 L Carbon Dioxide Level 30 Anion Gap 15 H Blood Urea Nitrogen 18 Creatinine 0.65 Est Glomerular Filtrat Rate mL/min Glucose Level 112 Calcium Level 9.6 C-Reactive Protein 5.6 H Medications Medication Current Medications Phenol (Cepastat Lozenge) 1 lozenge PRN PRN MT SORE THROAT; Start 07/18/18 at 01:30 Tamsulosin HCl (Flomax) 0.4 mg DAILY@21 PO Last administered on 07/28/18at 20:45; Admin Dose 0.4 MG; Start 07/18/18 at 21:00 Dutasteride (Avodart) 0.5 mg DAILY PO Last administered on 07/28/18 10:10; Admin Dose 0.5 MG; Start 07/18/18 at 09:00 Fluticasone/ Vilanterol (Breo Ellipta 100-25 Mcg Inh) 1 inh DAILY INH Last administered on 07/28/18 08:37; Admin Dose 1 INH; Start 07/18/18 at 09:00 Metoprolol Succinate (Toprol Xl) 25 mg BID PO Last administered on 07/28/18 20:45; Admin Dose 25 MG; Start 07/18/18 at 09:00 Ondansetron HCl (Zofran Inj) 4 mg Q6H PRN IV NAUSEA AND/OR VOMITING; Start 07/18/18 at 01:30 Oxycodone/ Acetaminophen (Endocet (10/ 325)) 1 tab Q4H PRN PO MODERATE PAIN LEVEL 4-6 Last administered on 07/22/18 09:57; Admin Dose 1 TAB; Start 07/18/18 at 01:30 Oxycodone/ Acetaminophen (Endocet (10/ 325)) 2 tab Q4H PRN PO MODERATE PAIN LEVEL 4-6 Last administered on 07/28/18 14:28; Admin Dose 2 TAB; Start 07/18/18 at 01:30 Acetaminophen (Tylenol Tab) 650 mg Q4H PRN PO MILD PAIN(1-3)OR ELEVATED TEMP; Start 07/18/18 at 01:30 Al Hydrox/Mg Hydrox/Simethicone (Mag-Al Plus) 15 ml Q6H PRN PO GASTROINTESTINAL UPSET; Start 07/18/18 at 01:30 Atorvastatin Calcium (Lipitor) 10 mg DAILY@21 PO Last administered on 07/28/18 20:46; Admin Dose 10 MG; Start 07/18/18 at 21:00 Bisacodyl (Dulcolax Supp) 10 mg DAILY PRN CA CONSTIPATION Last administered on 07/28/18 20:45; Admin Dose 10 MG; Start 07/18/18 at 01:30 Diphenhydramine HCl (Benadryl) 25 mg Q6H PRN PO ALLERGIC REACTION Last administered on 07/24/18 00:01; Admin Dose 25 MG; Start 07/18/18 at 01:30 Docusate Sodium (Colace) 100 mg BID PO Last administered on 07/28/18 20:45; Admin Dose 100 MG; Start 07/18/18 at 09:00 Doxazosin Mesylate (Cardura) 4 mg HS PO Last administered on 07/28/18 20:46; Admin Dose 4 MG; Start 07/18/18 at 21:00 Senna (Senokot) 1 tab HS PO Last administered on 07/28/18 20:45; Admin Dose 1 TAB; Start 07/18/18 at 21:00 Magnesium Hydroxide (Milk Of Mag) 30 ml BID PRN PO CONSTIPATION; Start 07/18/18 at 01:30 Pantoprazole (Protonix Tab) 40 mg DAILY@06 PO Last administered on 07/29/18 06:51; Admin Dose 40 MG; Start 07/18/18 at 07:00 Lactulose (Enulose) 10 gm DAILY PRN PO CONSTIPATION Last administered on 07/19/18 07:12; Admin Dose 10 GM; Start 07/18/18 at 12:30 Bisacodyl (Dulcolax) 10 mg DAILY PRN PO CONSTIPATION Last administered on 07/27/18 10:06; Admin Dose 10 MG; Start 07/18/18 at 13:00 Baclofen (Lioresal) 10 mg BID PO Last administered on 07/28/18 20:45; Admin Dose 10 MG; Start 07/20/18 at 09:00 Docusate Sodium/ Ferrous Fumarate (Patrick-Sequels) 1 tab DAILY PO Last administered on 07/28/18 08:34; Admin Dose 1 TAB; Start 07/20/18 at 13:30; Stop 08/19/18 at 13:29 Zolpidem Tartrate (Ambien) 5 mg HS MAY REPEAT X 1 PRN PO INSOMNIA Last administered on 07/28/18 23:11; Admin Dose 5 MG; Start 07/24/18 at 02:00 Gabapentin (Neurontin) 400 mg PC DINNER PO Last administered on 07/28/18 18:27; Admin Dose 400 MG; Start 07/24/18 at 18:35 Hydromorphone HCl (Dilaudid) 1 mg Q4H PRN IV MODERATE PAIN LEVEL 4-6; Start 07/24/18 at 09:00 Hydromorphone HCl (Dilaudid) 2 mg Q2H PRN IV SEVERE PAIN LEVEL 7-10 Last administered on 07/29/18at 07:41; Admin Dose 2 MG; Start 07/26/18 at 21:00 Gabapentin (Neurontin) 200 mg TID PO Last administered on 07/28/18at 20:46; Admin Dose 200 MG; Start 07/28/18 at 13:00 MARGARITO ANTONIO MD Jul 29, 2018 08:55
[2018-07-29] MEDS: FLUTICASONE/VILANTEROL 100-25 INH SCH (09:52)
[2018-07-29] MEDS: DUTASTERIDE 0.5 MG CAP PO SCH (09:52)
[2018-07-29] MEDS: GABAPENTIN 400 MG CAP PO SCH (09:54)
[2018-07-29] MEDS: GABAPENTIN 100 MG CAP PO SCH ×3 (09:55→21:03)
[2018-07-29] MEDS: FERROUS FUMARATE (SR) TAB PO SCH (09:58)
[2018-07-29] MEDS: BACLOFEN 10 MG TAB PO SCH ×2 (09:58→21:03)
[2018-07-29] MEDS: METOPROLOL (XL) 25 MG TAB PO SCH ×2 (09:58→21:04)
--- NOTE | 2018-07-29 12:09 | PN ---
Date/Time of Note Date/Time of Note DATE: 07/29/18 TIME: 12:09 Subjective Appreciate ID input Objective Vital Signs Date Temp Pulse Resp B/P (MAP) Pulse Ox O2 O2 Flow FiO2 Time Delivery Rate 07/29/18 97.9 64 20 118/57 98 High Flow 07:30 (77) Intake and Output 07/28/18 07/28/18 07/29/18 1515:00 23:00 07:00 IntakeIntake Total 200 ml 1350 ml 100 ml OutputOutput Total 50 ml 800 ml 850 ml BalanceBalance 150 ml 550 ml -750 ml Exam pulm-cta sba/cga ambulation Results/Medications Result Diagram: 07/29/18 0604 07/28/18 1351 Results 24 hrs Laboratory Tests Test 07/28/18 13:51 07/28/18 14:45 07/29/18 06:04 White Blood Count 12.4 #H 13.1 H 11.6 H Red Blood Count 3.15 #L 3.05 L 2.83 L Hemoglobin 10.5 #L 10.3 L 9.5 L Hematocrit 32.2 #L 31.0 L 29.0 L Mean Corpuscular Volume 102.2 H 101.6 H 102.5 H Mean Corpuscular Hemoglobin 33.3 H 33.8 H 33.6 H Mean Corpuscular Hemoglobin Concent 32.6 33.2 32.8 Red Cell Distribution Width 13.5 13.4 13.4 Platelet Count 581 #H 564 H 504 H Mean Platelet Volume 8.2 8.0 8.3 Immature Granulocytes % 0.600 H 0.400 0.600 H Neutrophils % 84.7 H 81.7 H 78.5 H Lymphocytes % 6.9 L 8.4 L 10.0 L Monocytes % 7.0 8.8 10.1 Eosinophils % 0.5 0.5 0.5 Basophils % 0.3 0.2 0.3 Nucleated Red Blood Cells % 0.0 0.0 0.0 Immature Granulocytes # 0.070 H 0.050 H 0.070 H Neutrophils # 10.5 H 10.7 H 9.1 H Lymphocytes # 0.9 1.1 1.2 Monocytes # 0.9 1.2 H 1.2 H Eosinophils # 0.1 0.1 0.1 Basophils # 0.0 0.0 0.0 Nucleated Red Blood Cells # 0.0 0.0 0.0 Erythrocyte Sedimentation Rate 85 H Sodium Level 141 Potassium Level 4.3 Chloride Level 96 L Carbon Dioxide Level 30 Anion Gap 15 H Blood Urea Nitrogen 18 Creatinine 0.65 Est Glomerular Filtrat Rate mL/min Glucose Level 112 Calcium Level 9.6 C-Reactive Protein 5.6 H Medications Current Medications Phenol (Cepastat Lozenge) 1 lozenge PRN PRN MT SORE THROAT; Start 07/18/18 at 01:30 Tamsulosin HCl (Flomax) 0.4 mg DAILY@21 PO Last administered on 07/28/18 20:45; Admin Dose 0.4 MG; Start 07/18/18 at 21:00 Dutasteride (Avodart) 0.5 mg DAILY PO Last administered on 07/29/18 09:52; Admin Dose 0.5 MG; Start 07/18/18 at 09:00 Fluticasone/ Vilanterol (Breo Ellipta 100-25 Mcg Inh) 1 inh DAILY INH Last administered on 07/29/18 09:52; Admin Dose 1 INH; Start 07/18/18 at 09:00 Metoprolol Succinate (Toprol Xl) 25 mg BID PO Last administered on 07/29/18 09:58; Admin Dose 25 MG; Start 07/18/18 at 09:00 Ondansetron HCl (Zofran Inj) 4 mg Q6H PRN IV NAUSEA AND/OR VOMITING; Start 07/18/18 at 01:30 Oxycodone/ Acetaminophen (Endocet (10/ 325)) 1 tab Q4H PRN PO MODERATE PAIN LEVEL 4-6 Last administered on 07/29/18 08:54; Admin Dose 1 TAB; Start 07/18/18 at 01:30 Oxycodone/ Acetaminophen (Endocet (10/ 325)) 2 tab Q4H PRN PO MODERATE PAIN LEVEL 4-6 Last administered on 07/28/18 14:28; Admin Dose 2 TAB; Start 07/18/18 at 01:30 Acetaminophen (Tylenol Tab) 650 mg Q4H PRN PO MILD PAIN(1-3)OR ELEVATED TEMP; Start 07/18/18 at 01:30 Al Hydrox/Mg Hydrox/Simethicone (Mag-Al Plus) 15 ml Q6H PRN PO GASTROINTESTINAL UPSET; Start 07/18/18 at 01:30 Atorvastatin Calcium (Lipitor) 10 mg DAILY@21 PO Last administered on 07/28/18 20:46; Admin Dose 10 MG; Start 07/18/18 at 21:00 Bisacodyl (Dulcolax Supp) 10 mg DAILY PRN [place] CONSTIPATION Last administered on 07/28/18 20:45; Admin Dose 10 MG; Start 07/18/18 at 01:30 Diphenhydramine HCl (Benadryl) 25 mg Q6H PRN PO ALLERGIC REACTION Last administered on 07/24/18 00:01; Admin Dose 25 MG; Start 07/18/18 at 01:30 Docusate Sodium (Colace) 100 mg BID PO Last administered on 07/29/18 08:48; Admin Dose 100 MG; Start 07/18/18 at 09:00 Doxazosin Mesylate (Cardura) 4 mg HS PO Last administered on 07/28/18 20:46; Admin Dose 4 MG; Start 07/18/18 at 21:00 Senna (Senokot) 1 tab HS PO Last administered on 07/28/18 20:45; Admin Dose 1 TAB; Start 07/18/18 at 21:00 Magnesium Hydroxide (Milk Of Mag) 30 ml BID PRN PO CONSTIPATION; Start 07/18/18 at 01:30 Pantoprazole (Protonix Tab) 40 mg DAILY@06 PO Last administered on 07/29/18 06:51; Admin Dose 40 MG; Start 07/18/18 at 07:00 Lactulose (Enulose) 10 gm DAILY PRN PO CONSTIPATION Last administered on 07/19/18 07:12; Admin Dose 10 GM; Start 07/18/18 at 12:30 Bisacodyl (Dulcolax) 10 mg DAILY PRN PO CONSTIPATION Last administered on 07/27/18 10:06; Admin Dose 10 MG; Start 07/18/18 at 13:00 Baclofen (Lioresal) 10 mg BID PO Last administered on 07/29/18 09:58; Admin Dose 10 MG; Start 07/20/18 at 09:00 Docusate Sodium/ Ferrous Fumarate (Patrick-Sequels) 1 tab DAILY PO Last administered on 07/29/18 09:58; Admin Dose 1 TAB; Start 07/20/18 at 13:30; Stop 08/19/18 at 13:29 Zolpidem Tartrate (Ambien) 5 mg HS MAY REPEAT X 1 PRN PO INSOMNIA Last administered on 07/28/18at 23:11; Admin Dose 5 MG; Start 07/24/18 at 02:00 Gabapentin (Neurontin) 400 mg PC DINNER PO Last administered on 07/29/18at 09:54; Admin Dose 400 MG; Start 07/24/18 at 18:35 Hydromorphone HCl (Dilaudid) 1 mg Q4H PRN IV MODERATE PAIN LEVEL 4-6; Start 07/24/18 at 09:00 Hydromorphone HCl (Dilaudid) 2 mg Q2H PRN IV SEVERE PAIN LEVEL 7-10 Last administered on 07/29/18at 11:59; Admin Dose 2 MG; Start 07/26/18 at 21:00 Gabapentin (Neurontin) 200 mg TID PO Last administered on 07/29/18at 09:55; Admin Dose 200 MG; Start 07/28/18 at 13:00 Assessment/Plan Additional Assessment/Plan Rehab- Lumbar radiculopathy status post decompression and fusion. Continue activities as tolerated R psoaas fluid collection- f/b ID Acute pain syndrome-continue current meds Chronic obstructive pulmonary disease. Sleep apnea. Hyperlipidemia. Hypertension. Benign prostatic hypertrophy. Coronary artery disease. Anemia. KINA WILL MD Jul 29, 2018 12:09
[2018-07-29 14:00] VITALS: BP 135/64; PULSE 75; RESP 18
--- NOTE | 2018-07-29 19:00 | NUR ---
Nursing Notes: patient seen by Dr. Martin Hazel ( ID ) for consult related to elevated WBC
[2018-07-29 20:00] VITALS: BP 114/64; PULSE 84; RESP 18
[2018-07-29 20:19] VITALS: BP 114/64; PULSE 84; RESP 18
[2018-07-29] MEDS: DOXAZOSIN 4 MG TAB PO SCH (21:02)
[2018-07-29] MEDS: SENNA TAB PO SCH (21:02)
[2018-07-29] MEDS: TAMSULOSIN (SR) 0.4 MG CAP PO SCH (21:03)
[2018-07-29] MEDS: ZOLPIDEM 5 MG TAB PO PRN (21:03)
[2018-07-29] MEDS: ATORVASTATIN 10 MG TAB PO SCH (21:03)
[2018-07-30] MEDS: HYDROmorphONE 2 MG/ML SYG IV PRN ×8 (00:33→23:41)
[2018-07-30 02:00] VITALS: BP 110/60; PULSE 60; RESP 18
[2018-07-30] MEDS: PANTOPRAZOLE (EC) 40 MG TAB PO SCH (06:17)
--- NOTE | 2018-07-30 06:20 | NUR ---
Pt awake at this time; slept well. No s/s of distress. Verbalized/manifested relief of pain after interventions. Due meds given. Kept comfortable. Safety precautions in place. Encouraged to call for help whenever necessary. Frequent checks done. Will endorse accordingly.
--- NOTE | 2018-07-30 07:28 | CONS ---
Assessment/Plan Assessment/Plan Hospital Course (Demo Recall) 1) s/p lumbar decompression surgery and question of R psoas abscess increase pain to site started soon after surgery and has persisted MRI suggests a R psoas fluid collection (?abscess) but a CT of area does not confirm a fluid collection He is not acting like an abscess with F, C He does not have more pain on R with flexion of hips I will review the MRI and CT with radiology but his WBC is improved today which makes infection less likely He had pseudogout diagnosed by path on the surgical site consider NSAIDS and/or colchicine to see if this might improve his pain there was a question of early lymphoma but the confirmation from [facility] is not back yet No doubt pt has an acute inflammatory process going on with the elevated platelets and CRP and the high ESR lymphoma, pseudogout, recent surgery and infection can all cause this individually or in some combination I will order procalcitonin as in infectious inflammatory process this is often elevated and in non infectious reasons it should be normal After I review the xrays I will add an addendum. 07/30 - WBC is back to WNL without any intervention MRI shows small fluid collection on R psoas, doubt this is an abscess repeat scan in 2-4 weeks since path showed pseudogout consider NSAID's +/- colchicine to see if this may have an impact on his pain Consultation Date/Type/Reason Admit Date/Time Jul 17, 2018 at 23:00 Initial Consult Date 07/29/18 Type of Consult ID Date/Time of Note DATE: 07/30/18 TIME: 07:23 24 HR Interval Summary Free Text/Dictation no change with back pain both legs hurt but he thinks the L hurts more able to use the walker still using IV dilaudid pt states he did not sleep well (nurse note says otherwise) no N, V D Exam/Review of Systems Exam Vitals Vital Signs Date Temp Pulse Resp B/P (MAP) Pulse Ox O2 O2 Flow FiO2 Time Delivery Rate 07/30/18 98.0 60 18 110/60 98 Room Air 02:00 (77) Intake and Output 07/29/18 07/29/18 07/30/18 1515:00 23:00 07:00 IntakeIntake Total 940 ml OutputOutput Total 420 ml 900 ml BalanceBalance 520 ml -900 ml Constitutional: alert, oriented Eyes: nl sclera Respiratory: clear to auscultation Cardiovascular: regular rate and rhythm Gastrointestinal: soft, non-tender Results Result Diagram: 07/30/18 0632 07/28/18 1351 Results 24hrs Laboratory Tests Test 07/30/18 06:32 White Blood Count 10.1 Red Blood Count 3.07 L Hemoglobin 10.0 L Hematocrit 31.4 L Mean Corpuscular Volume 102.3 H Mean Corpuscular Hemoglobin 32.6 Mean Corpuscular Hemoglobin Concent 31.8 L Red Cell Distribution Width 13.4 Platelet Count 535 H Mean Platelet Volume 8.4 Immature Granulocytes % 0.600 H Neutrophils % 77.3 H Lymphocytes % 11.1 L Monocytes % 9.7 Eosinophils % 0.9 Basophils % 0.4 Nucleated Red Blood Cells % 0.0 Immature Granulocytes # 0.060 H Neutrophils # 7.8 H Lymphocytes # 1.1 Monocytes # 1.0 H Eosinophils # 0.1 Basophils # 0.0 Nucleated Red Blood Cells # 0.0 Medications Medication Current Medications Phenol (Cepastat Lozenge) 1 lozenge PRN PRN MT SORE THROAT; Start 07/18/18 at 01:30 Tamsulosin HCl (Flomax) 0.4 mg DAILY@21 PO Last administered on 07/29/18 21:03; Admin Dose 0.4 MG; Start 07/18/18 at 21:00 Dutasteride (Avodart) 0.5 mg DAILY PO Last administered on 07/29/18 09:52; Admin Dose 0.5 MG; Start 07/18/18 at 09:00 Fluticasone/ Vilanterol (Breo Ellipta 100-25 Mcg Inh) 1 inh DAILY INH Last administered on 07/29/18 09:52; Admin Dose 1 INH; Start 07/18/18 at 09:00 Metoprolol Succinate (Toprol Xl) 25 mg BID PO Last administered on 07/29/18 21:04; Admin Dose 25 MG; Start 07/18/18 at 09:00 Ondansetron HCl (Zofran Inj) 4 mg Q6H PRN IV NAUSEA AND/OR VOMITING; Start 07/18/18 at 01:30 Oxycodone/ Acetaminophen (Endocet (10/ 325)) 1 tab Q4H PRN PO MODERATE PAIN LEVEL 4-6 Last administered on 07/29/18 08:54; Admin Dose 1 TAB; Start 07/18/18 at 01:30 Oxycodone/ Acetaminophen (Endocet (10/ 325)) 2 tab Q4H PRN PO MODERATE PAIN LEVEL 4-6 Last administered on 07/29/18 16:43; Admin Dose 2 TAB; Start 07/18/18 at 01:30 Acetaminophen (Tylenol Tab) 650 mg Q4H PRN PO MILD PAIN(1-3)OR ELEVATED TEMP; Start 07/18/18 at 01:30 Al Hydrox/Mg Hydrox/Simethicone (Mag-Al Plus) 15 ml Q6H PRN PO GASTROINTESTINAL UPSET; Start 07/18/18 at 01:30 Atorvastatin Calcium (Lipitor) 10 mg DAILY@21 PO Last administered on 07/29/18 21:03; Admin Dose 10 MG; Start 07/18/18 at 21:00 Bisacodyl (Dulcolax Supp) 10 mg DAILY PRN [place] CONSTIPATION Last administered on 07/28/18 20:45; Admin Dose 10 MG; Start 07/18/18 at 01:30 Diphenhydramine HCl (Benadryl) 25 mg Q6H PRN PO ALLERGIC REACTION Last ad ministered on 07/24/18 00:01; Admin Dose 25 MG; Start 07/18/18 at 01:30 Docusate Sodium (Colace) 100 mg BID PO Last administered on 07/29/18 21:02; Admin Dose 100 MG; Start 07/18/18 at 09:00 Doxazosin Mesylate (Cardura) 4 mg HS PO Last administered on 07/29/18 21:02; Admin Dose 4 MG; Start 07/18/18 at 21:00 Senna (Senokot) 1 tab HS PO Last administered on 07/29/18 21:02; Admin Dose 1 TAB; Start 07/18/18 at 21:00 Magnesium Hydroxide (Milk Of Mag) 30 ml BID PRN PO CONSTIPATION; Start 07/18/18 at 01:30 Pantoprazole (Protonix Tab) 40 mg DAILY@06 PO Last administered on 07/30/18 06:17; Admin Dose 40 MG; Start 07/18/18 at 07:00 Lactulose (Enulose) 10 gm DAILY PRN PO CONSTIPATION Last administered on 07/19/18 07:12; Admin Dose 10 GM; Start 07/18/18 at 12:30 Bisacodyl (Dulcolax) 10 mg DAILY PRN PO CONSTIPATION Last administered on 07/27/18 10:06; Admin Dose 10 MG; Start 07/18/18 at 13:00 Baclofen (Lioresal) 10 mg BID PO Last administered on 07/29/18 21:03; Admin Dose 10 MG; Start 07/20/18 at 09:00 Docusate Sodium/ Ferrous Fumarate (Patrick-Sequels) 1 tab DAILY PO Last administ ered on 07/29/18 09:58; Admin Dose 1 TAB; Start 07/20/18 at 13:30; Stop 08/19/18 at 13:29 Zolpidem Tartrate (Ambien) 5 mg HS MAY REPEAT X 1 PRN PO INSOMNIA Last administered on 07/29/18 21:03; Admin Dose 5 MG; Start 07/24/18 at 02:00 Gabapentin (Neurontin) 400 mg PC DINNER PO Last administered on 07/29/18 09:54; Admin Dose 400 MG; Start 07/24/18 at 18:35 Hydromorphone HCl (Dilaudid) 1 mg Q4H PRN IV MODERATE PAIN LEVEL 4-6; Start 07/24/18 at 09:00 Hydromorphone HCl (Dilaudid) 2 mg Q2H PRN IV SEVERE PAIN LEVEL 7-10 Last administered on 07/30/18 06:48; Admin Dose 2 MG; Start 07/26/18 at 21:00 Gabapentin (Neurontin) 200 mg TID PO Last administered on 07/29/18 21:03; Admin Dose 200 MG; Start 07/28/18 at 13:00 MARGARITO ANTONIO MD Jul 30, 2018 07:28
[2018-07-30 07:30] VITALS: BP 112/70; PULSE 96; RESP 20
[2018-07-30] MEDS: FLUTICASONE/VILANTEROL 100-25 INH SCH (08:49)
[2018-07-30] MEDS: METOPROLOL (XL) 25 MG TAB PO SCH ×2 (08:50→21:03)
[2018-07-30] MEDS: DUTASTERIDE 0.5 MG CAP PO SCH (08:50)
[2018-07-30] MEDS: FERROUS FUMARATE (SR) TAB PO SCH (08:50)
[2018-07-30] MEDS: GABAPENTIN 100 MG CAP PO SCH ×3 (08:50→21:01)
[2018-07-30] MEDS: OXYCODONE/ACETAMINOPHEN (10/325) TAB PO PRN (08:50)
[2018-07-30] MEDS: DOCUSATE SODIUM 100 MG CAP PO SCH ×2 (08:50→21:01)
[2018-07-30] MEDS: BACLOFEN 10 MG TAB PO SCH ×2 (08:51→21:01)
--- NOTE | 2018-07-30 10:55 | NUR ---
[facility] OT Weekly Summary Dates From: 07/07/18 to 07/24/18 Patient Name: JOHN MELO MR#: [id number] Height: 5 ft 6 in Weight: 187 lbs 9.814 oz 85.100 kg Reason for Visit: OTHER NEUROLOGICAL CONDITION Precautions: back precautions and fall risk Date: 07/30/18 Time: 1055 User: SANDRO SULTANA Short-term Goals: 1. Indep w/ Grooming 2. Mod A w/ Bathing 3. Mod I/ Sup w/ UB/LB dress 4. Sup w/ Toileting 5. Sup w/ Functional transfers Upon admission pt has the ff levels: Grooming: Sup, Bathing: Dependent, UB/LB dress: Min A/ Mod A, Toileting: Mod A, Functional trans: Mod A. Pt making good progress towards goals through ADL retraining,NMRE, thera ex and actv, pt and cg educ. Pt's current functional levels: Grooming: SUp, Bathing: Max A, UB/LB dress: Min/Max A, Toileting: Mod A, Functional transfers: Min A. Pt highly motivated with therapy w/ occassional refusals d/t high pain level. Recommended equipment: shower chair and commode.
--- NOTE | 2018-07-30 12:10 | PN ---
Date/Time of Note Date/Time of Note DATE: 07/30/18 TIME: 12:08 Assessment/Plan Lines/Catheters IV Catheter Type (from Nrsg): Saline Lock Lares in Place (from Nrsg): No Assessment/Plan Assessment/Plan The patient is status post spinal surgery. Dr. johns evaluated the patient and reviewed the imaging studies. He recommends holding off on antibiotics and a new scan will be ordered in the next 2-4 weeks as an outpatient. 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 I will arrange for him to see an oncologist closer to his home. Patient is scheduled to be discharged tomorrow. Subjective 24 Hr Interval Summary Improving low back pain Exam/Review of Systems Vital Signs Vitals Vital Signs Date Temp Pulse Resp B/P (MAP) Pulse Ox O2 O2 Flow FiO2 Time Delivery Rate 07/30/18 98.8 96 20 112/70 100 Room Air 07:30 (84) Intake and Output 07/29/18 07/29/18 07/30/18 1515:00 23:00 07:00 IntakeIntake Total 940 ml OutputOutput Total 420 ml 900 ml BalanceBalance 520 ml -900 ml Exam Free Text/Dictation Neuro improved Results Result Diagram: 07/30/18 0632 07/28/18 1351 DEANNE NEWTON MD Jul 30, 2018 12:10
[2018-07-30] MEDS: IBUPROFEN 600 MG TAB PO SCH ×2 (12:41→21:02)
--- NOTE | 2018-07-30 12:58 | PN ---
Date/Time of Note Date/Time of Note DATE: 07/30/18 TIME: 12:58 Subjective Overall pain is improving. Case d/w Dr. Terrazas. Patient's biopsy apparently c/w lymphoma. Objective Vital Signs Date Temp Pulse Resp B/P (MAP) Pulse Ox O2 O2 Flow FiO2 Time Delivery Rate 07/30/18 98.8 96 20 112/70 100 Room Air 07:30 (84) Intake and Output 07/29/18 07/29/18 07/30/18 1515:00 23:00 07:00 IntakeIntake Total 940 ml OutputOutput Total 420 ml 900 ml BalanceBalance 520 ml -900 ml Exam pulm-cta sba ambulation Results/Medications Result Diagram: 07/30/18 0632 07/28/18 1351 Results 24 hrs Laboratory Tests Test 07/30/18 06:32 White Blood Count 10.1 Red Blood Count 3.07 L Hemoglobin 10.0 L Hematocrit 31.4 L Mean Corpuscular Volume 102.3 H Mean Corpuscular Hemoglobin 32.6 Mean Corpuscular Hemoglobin Concent 31.8 L Red Cell Distribution Width 13.4 Platelet Count 535 H Mean Platelet Volume 8.4 Immature Granulocytes % 0.600 H Neutrophils % 77.3 H Lymphocytes % 11.1 L Monocytes % 9.7 Eosinophils % 0.9 Basophils % 0.4 Nucleated Red Blood Cells % 0.0 Immature Granulocytes # 0.060 H Neutrophils # 7.8 H Lymphocytes # 1.1 Monocytes # 1.0 H Eosinophils # 0.1 Basophils # 0.0 Nucleated Red Blood Cells # 0.0 C-Reactive Protein 4.6 H Medications Current Medications Phenol (Cepastat Lozenge) 1 lozenge PRN PRN MT SORE THROAT; Start 07/18/18 at 01:30 Tamsulosin HCl (Flomax) 0.4 mg DAILY@21 PO Last administered on 07/29/18at 21:03; Admin Dose 0.4 MG; Start 07/18/18 at 21:00 Dutasteride (Avodart) 0.5 mg DAILY PO Last administered on 07/30/18at 08:50; Admin Dose 0.5 MG; Start 07/18/18 at 09:00 Fluticasone/ Vilanterol (Breo Ellipta 100-25 Mcg Inh) 1 inh DAILY INH Last administered on 07/30/18 08:49; Admin Dose 1 INH; Start 07/18/18 at 09:00 Metoprolol Succinate (Toprol Xl) 25 mg BID PO Last administered on 07/30/18 08:50; Admin Dose 25 MG; Start 07/18/18 at 09:00 Ondansetron HCl (Zofran Inj) 4 mg Q6H PRN IV NAUSEA AND/OR VOMITING; Start 07/18/18 at 01:30 Oxycodone/ Acetaminophen (Endocet (10/ 325)) 1 tab Q4H PRN PO MODERATE PAIN LEVEL 4-6 Last administered on 07/29/18 08:54; Admin Dose 1 TAB; Start 07/18/18 at 01:30 Oxycodone/ Acetaminophen (Endocet (10/ 325)) 2 tab Q4H PRN PO MODERATE PAIN LEVEL 4-6 Last administered on 07/30/18 08:50; Admin Dose 2 TAB; Start 07/18/18 at 01:30 Acetaminophen (Tylenol Tab) 650 mg Q4H PRN PO MILD PAIN(1-3)OR ELEVATED TEMP; Start 07/18/18 at 01:30 Al Hydrox/Mg Hydrox/Simethicone (Mag-Al Plus) 15 ml Q6H PRN PO GASTROINTESTINAL UPSET; Start 07/18/18 at 01:30 Atorvastatin Calcium (Lipitor) 10 mg DAILY@21 PO Last administered on 07/29/18 21:03; Admin Dose 10 MG; Start 07/18/18 at 21:00 Bisacodyl (Dulcolax Supp) 10 mg DAILY PRN [place] CONSTIPATION Last administered on 07/28/18 20:45; Admin Dose 10 MG; Start 07/18/18 at 01:30 Diphenhydramine HCl (Benadryl) 25 mg Q6H PRN PO ALLERGIC REACTION Last administ ered on 07/24/18 00:01; Admin Dose 25 MG; Start 07/18/18 at 01:30 Docusate Sodium (Colace) 100 mg BID PO Last administered on 07/30/18 08:50; Admin Dose 100 MG; Start 07/18/18 at 09:00 Doxazosin Mesylate (Cardura) 4 mg HS PO Last administered on 07/29/18 21:02; Admin Dose 4 MG; Start 07/18/18 at 21:00 Senna (Senokot) 1 tab HS PO Last administered on 07/29/18 21:02; Admin Dose 1 TAB; Start 07/18/18 at 21:00 Magnesium Hydroxide (Milk Of Mag) 30 ml BID PRN PO CONSTIPATION; Start 07/18/18 at 01:30 Pantoprazole (Protonix Tab) 40 mg DAILY@06 PO Last administered on 07/30/18 06:17; Admin Dose 40 MG; Start 07/18/18 at 07:00 Lactulose (Enulose) 10 gm DAILY PRN PO CONSTIPATION Last administered on 07/19/18 07:12; Admin Dose 10 GM; Start 07/18/18 at 12:30 Bisacodyl (Dulcolax) 10 mg DAILY PRN PO CONSTIPATION Last administered on 07/27/18 10:06; Admin Dose 10 MG; Start 07/18/18 at 13:00 Baclofen (Lioresal) 10 mg BID PO Last administered on 07/30/18 08:51; Admin Dose 10 MG; Start 07/20/18 at 09:00 Docusate Sodium/ Ferrous Fumarate (Patrick-Sequels) 1 tab DAILY PO Last administered on 07/30/18 08:50; Admin Dose 1 TAB; Start 07/20/18 at 13:30; Stop 08/19/18 at 13:29 Zolpidem Tartrate (Ambien) 5 mg HS MAY REPEAT X 1 PRN PO INSOMNIA Last administered on 07/29/18 21:03; Admin Dose 5 MG; Start 07/24/18 at 02:00 Gabapentin (Neurontin) 400 mg PC DINNER PO Last administered on 07/29/18 09:54; Admin Dose 400 MG; Start 07/24/18 at 18:35 Hydromorphone HCl (Dilaudid) 1 mg Q4H PRN IV MODERATE PAIN LEVEL 4-6; Start 07/24/18 at 09:00 Hydromorphone HCl (Dilaudid) 2 mg Q2H PRN IV SEVERE PAIN LEVEL 7-10 Last administered on 07/30/18 12:42; Admin Dose 2 MG; Start 07/26/18 at 21:00 Gabapentin (Neurontin) 200 mg TID PO Last administered on 07/30/18 12:41; Admin Dose 200 MG; Start 07/28/18 at 13:00 Ibuprofen (Motrin) 600 mg TID PO Last administered on 07/30/18at 12:41; Admin Dose 600 MG; Start 07/30/18 at 13:00 Assessment/Plan Additional Assessment/Plan Rehab- Lumbar radiculopathy status post decompression and fusion. Overall improved. Continue interdisciplinary program, with DC tomorrow. R psoas fluid collection- Seen by ID Dr. Hazel, who does not feel that this is infectious. patient to have f.u. MRI in 2-4 weeks Acute pain syndrome-continue current meds Chronic obstructive pulmonary disease. Sleep apnea. Hyperlipidemia. Hypertension. Benign prostatic hypertrophy. Coronary artery disease. Anemia. 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 Patietn to have outpatient oncology followup. KINA WILL MD Jul 30, 2018 12:58
[2018-07-30 14:00] VITALS: BP 118/64; PULSE 86; RESP 18
--- NOTE | 2018-07-30 15:11 | NUR ---
[facility] PT Weekly Summary Dates From: 07/22/18 to 07/30/18 Patient Name: JOHN MELO MR#: [id number] Height: 5 ft 6 in Weight: 187 lbs 9.814 oz 85.100 kg Reason for Visit: OTHER NEUROLOGICAL CONDITION Precautions: fall risk, LSO brace when OOB, Spine prec Date: 07/30/18 Time: 1512 User: MELI FLORES Short-term Goals: Bed Mobility CGA Transfers CGA FWW Gait CGA 50ft FWW Pt making good steady progress during his stay at [facility]. Pt currently demonstrates supervision for bed mobility, supervision for transfers, SBA for gait using FWW 300ft. Pt refused stairs. Pt met all STG's. Cont POC and progress as zully to meet LTG's. Recommendations: FWW and home with HHPT and supervision.
--- NOTE | 2018-07-30 17:00 | NUR ---
Patient in bed watching TV. Offered educational materials for recreational activities. Alert, oriented x 4. No SOB. Complained of pain so given routine & PRN pain medication. Relieved after 30 minutes. Kept clean & dry. All due meds given. Call light within reach. Bed alarm on & in low position. Kept comfortable.
--- NOTE | 2018-07-30 17:19 | PN ---
Date/Time of Note Date/Time of Note DATE: 07/30/18 TIME: 17:17 Assessment/Plan VTE Prophylaxis Risk score (from Ns)>0 risk: 8 SCD applied (from [facility] [place]): No SCD contraindicated: low risk/ambulating Pharmacological prophylaxis: NA/contraindicated Pharm contraindication: low risk/ambulating, surgical contra Lines/Catheters IV Catheter Type (from [facility]): Peripheral IV Urinary Cath still in place: No Assessment/Plan Result Diagram: 07/30/18 0632 07/28/18 1351 Results 24hrs Laboratory Tests Test 07/30/18 06:32 White Blood Count 10.1 Red Blood Count 3.07 L Hemoglobin 10.0 L Hematocrit 31.4 L Mean Corpuscular Volume 102.3 H Mean Corpuscular Hemoglobin 32.6 Mean Corpuscular Hemoglobin Concent 31.8 L Red Cell Distribution Width 13.4 Platelet Count 535 H Mean Platelet Volume 8.4 Immature Granulocytes % 0.600 H Neutrophils % 77.3 H Lymphocytes % 11.1 L Monocytes % 9.7 Eosinophils % 0.9 Basophils % 0.4 Nucleated Red Blood Cells % 0.0 Immature Granulocytes # 0.060 H Neutrophils # 7.8 H Lymphocytes # 1.1 Monocytes # 1.0 H Eosinophils # 0.1 Basophils # 0.0 Nucleated Red Blood Cells # 0.0 C-Reactive Protein 4.6 H Subjective 24 Hr Interval Summary Free Text/Dictation sleeping on rounds events noted, evidently lymphoma on bx. dr nguyen will dc tomorrow, he will seek outpt follow up for the lymphoma close to home will be available to him if neded further Musculoskeletal: back pain Exam/Review of Systems Exam Vitals Vital Signs Date Temp Pulse Resp B/P (MAP) Pulse Ox O2 O2 Flow FiO2 Time Delivery Rate 07/30/18 97.7 86 18 118/64 97 Room Air 14:00 (82) Intake and Output 07/29/18 07/29/18 07/30/18 1515:00 23:00 07:00 IntakeIntake Total 940 ml OutputOutput Total 420 ml 900 ml BalanceBalance 520 ml -900 ml Results Results 24hrs Laboratory Tests Test 07/30/18 06:32 White Blood Count 10.1 Red Blood Count 3.07 L Hemoglobin 10.0 L Hematocrit 31.4 L Mean Corpuscular Volume 102.3 H Mean Corpuscular Hemoglobin 32.6 Mean Corpuscular Hemoglobin Concent 31.8 L Red Cell Distribution Width 13.4 Platelet Count 535 H Mean Platelet Volume 8.4 Immature Granulocytes % 0.600 H Neutrophils % 77.3 H Lymphocytes % 11.1 L Monocytes % 9.7 Eosinophils % 0.9 Basophils % 0.4 Nucleated Red Blood Cells % 0.0 Immature Granulocytes # 0.060 H Neutrophils # 7.8 H Lymphocytes # 1.1 Monocytes # 1.0 H Eosinophils # 0.1 Basophils # 0.0 Nucleated Red Blood Cells # 0.0 C-Reactive Protein 4.6 H Medications Medication Current Medications Phenol (Cepastat Lozenge) 1 lozenge PRN PRN MT SORE THROAT; Start 07/18/18 at 01:30 Tamsulosin HCl (Flomax) 0.4 mg DAILY@21 PO Last administered on 07/29/18 21:03; Admin Dose 0.4 MG; Start 07/18/18 at 21:00 Dutasteride (Avodart) 0.5 mg DAILY PO Last administered on 07/30/18 08:50; Admin Dose 0.5 MG; Start 07/18/18 at 09:00 Fluticasone/ Vilanterol (Breo Ellipta 100-25 Mcg Inh) 1 inh DAILY INH Last administered on 07/30/18 08:49; Admin Dose 1 INH; Start 07/18/18 at 09:00 Metoprolol Succinate (Toprol Xl) 25 mg BID PO Last administered on 07/30/18 08:50; Admin Dose 25 MG; Start 07/18/18 at 09:00 Ondansetron HCl (Zofran Inj) 4 mg Q6H PRN IV NAUSEA AND/OR VOMITING; Start 07/18/18 at 01:30 Oxycodone/ Acetaminophen (Endocet (10/ 325)) 1 tab Q4H PRN PO MODERATE PAIN LEVEL 4-6 Last administered on 07/29/18 08:54; Admin Dose 1 TAB; Start 07/18/18 at 01:30 Oxycodone/ Acetaminophen (Endocet (10/ 325)) 2 tab Q4H PRN PO MODERATE PAIN LEVEL 4-6 Last administered on 07/30/18 08:50; Admin Dose 2 TAB; Start 07/18/18 at 01:30 Acetaminophen (Tylenol Tab) 650 mg Q4H PRN PO MILD PAIN(1-3)OR ELEVATED TEMP; Start 07/18/18 at 01:30 Al Hydrox/Mg Hydrox/Simethicone (Mag-Al Plus) 15 ml Q6H PRN PO GASTROINTESTINAL UPSET Last administered on 07/30/18 13:02; Admin Dose 15 ML; Start 07/18/18 at 01:30 Atorvastatin Calcium (Lipitor) 10 mg DAILY@21 PO Last administered on 07/29/18 21:03; Admin Dose 10 MG; Start 07/18/18 at 21:00 Bisacodyl (Dulcolax Supp) [address] CONSTIPATION Last administered on 07/28/18 20:45; Admin Dose 10 MG; Start 07/18/18 at 01:30 Diphenhydramine HCl (Benadryl) 25 mg Q6H PRN PO ALLERGIC REACTION Last administered on 07/24/18 00:01; Admin Dose 25 MG; Start 07/18/18 at 01:30 Docusate Sodium (Colace) 100 mg BID PO Last administered on 07/30/18 08:50; Admin Dose 100 MG; Start 07/18/18 at 09:00 Doxazosin Mesylate (Cardura) 4 mg HS PO Last administered on 07/29/18 21:02; Admin Dose 4 MG; Start 07/18/18 at 21:00 Senna (Senokot) 1 tab HS PO Last administered on 07/29/18 21:02; Admin Dose 1 TAB; Start 07/18/18 at 21:00 Magnesium Hydroxide (Milk Of Mag) 30 ml BID PRN PO CONSTIPATION; Start 07/18/18 at 01:30 Pantoprazole (Protonix Tab) 40 mg DAILY@06 PO Last administered on 07/30/18 06:17; Admin Dose 40 MG; Start 07/18/18 at 07:00 Lactulose (Enulose) 10 gm DAILY PRN PO CONSTIPATION Last administered on 07/19/18 07:12; Admin Dose 10 GM; Start 07/18/18 at 12:30 Bisacodyl (Dulcolax) 10 mg DAILY PRN PO CONSTIPATION Last administered on 07/27/18 10:06; Admin Dose 10 MG; Start 07/18/18 at 13:00 Baclofen (Lioresal) 10 mg BID PO Last administered on 07/30/18 08:51; Admin Do se 10 MG; Start 07/20/18 at 09:00 Docusate Sodium/ Ferrous Fumarate (Patrick-Sequels) 1 tab DAILY PO Last administered on 07/30/18 08:50; Admin Dose 1 TAB; Start 07/20/18 at 13:30; Stop 08/19/18 at 13:29 Zolpidem Tartrate (Ambien) 5 mg HS MAY REPEAT X 1 PRN PO INSOMNIA Last administered on 07/29/18 21:03; Admin Dose 5 MG; Start 07/24/18 at 02:00 Gabapentin (Neurontin) 400 mg PC DINNER PO Last administered on 07/29/18 09:54; Admin Dose 400 MG; Start 07/24/18 at 18:35 Hydromorphone HCl (Dilaudid) 1 mg Q4H PRN IV MODERATE PAIN LEVEL 4-6; Start 07/24/18 at 09:00 Hydromorphone HCl (Dilaudid) 2 mg Q2H PRN IV SEVERE PAIN LEVEL 7-10 Last administered on 07/30/18 12:42; Admin Dose 2 MG; Start 07/26/18 at 21:00 Gabapentin (Neurontin) 200 mg TID PO Last administered on 07/30/18 12:41; Admin Dose 200 MG; Start 07/28/18 at 13:00 Ibuprofen (Motrin) 600 mg TID PO Last administered on 07/30/18 12:41; Admin Dose 600 MG; Start 07/30/18 at 13:00 JAN IRAHETA MD Jul 30, 2018 17:19
--- NOTE | 2018-07-30 18:07 | PN ---
DATE: 07/30/2018 PSYCHOLOGY - INDIVIDUAL SESSION - 13013 This is a followup on a patient who was seen last week. The patient was seen up in his wheelchair. The patient had reported that he felt much better. The patient has been trying hard to function. Th e patient is preparing to leave the hospital tomorrow. However, there is a possibility through a new MRI that they may found something that may keep him longer. The patient is aware of this and wants to do whatever it has to do to regain his health. I worked with the patient regarding his frustratio n, about his health concerns and the patient was very receptive. Dictated By: GIANNI CROWLEY PHD RK/HANY Conf#: [id number] DID#: [id number] CC: KINA WILL MD; DEANNE NEWTON MD;*End*
[2018-07-30] MEDS: GABAPENTIN 400 MG CAP PO SCH (18:37)
[2018-07-30 19:11] VITALS: BP 127/65; PULSE 82; RESP 18
[2018-07-30] MEDS: TAMSULOSIN (SR) 0.4 MG CAP PO SCH (21:01)
[2018-07-30] MEDS: ATORVASTATIN 10 MG TAB PO SCH (21:01)
[2018-07-30] MEDS: SENNA TAB PO SCH (21:01)
[2018-07-30] MEDS: DOXAZOSIN 4 MG TAB PO SCH (21:03)
[2018-07-31 02:00] VITALS: BP 122/68; PULSE 88; RESP 18
[2018-07-31] MEDS: HYDROmorphONE 2 MG/ML SYG IV PRN ×7 (03:46→16:13)
[2018-07-31] MEDS: PANTOPRAZOLE (EC) 40 MG TAB PO SCH (06:00)
--- NOTE | 2018-07-31 06:40 | NUR ---
Medicated for back pain as needed with good effect. Voiding well using urinal. Needs attended. Slept well. Call light within reached, bed alarm is activated. No acute distress noted.
[2018-07-31 07:00] VITALS: BP 116/55; PULSE 69; RESP 18
[2018-07-31] MEDS: OXYCODONE/ACETAMINOPHEN (10/325) TAB PO PRN ×2 (07:38→13:19)
[2018-07-31] MEDS: GABAPENTIN 100 MG CAP PO SCH ×2 (07:39→14:34)
[2018-07-31] MEDS: DUTASTERIDE 0.5 MG CAP PO SCH (09:08)
[2018-07-31] MEDS: FERROUS FUMARATE (SR) TAB PO SCH (09:09)
[2018-07-31] MEDS: FLUTICASONE/VILANTEROL 100-25 INH SCH (09:09)
[2018-07-31] MEDS: BACLOFEN 10 MG TAB PO SCH (09:09)
[2018-07-31] MEDS: IBUPROFEN 600 MG TAB PO SCH ×2 (09:11→14:25)
[2018-07-31] MEDS: METOPROLOL (XL) 25 MG TAB PO SCH (09:12)
[2018-07-31] MEDS: HYDROmorphONE 1 MG/ML SYG IV PRN ×2 (09:14→21:30)
[2018-07-31] MEDS: DOCUSATE SODIUM 100 MG CAP PO SCH (09:16)
--- NOTE | 2018-07-31 13:03 | DS ---
Date/Time of Note Date/Time of Note DATE: 07/31/18 TIME: 13:01 Discharge Summary Admission/Discharge Info Admit Date/Time Jul 17, 2018 at 23:00 Discharge Date/Time Discharge Diagnosis 1. Lumbar radiculopathy status post decompression and fusion. 2. Chronic obstructive pulmonary disease. 3. Sleep apnea. 4. Hyperlipidemia. 5. Hypertension. 6. Benign prostatic hypertrophy. 7. Coronary artery disease. 8. Anemia. 9. Lymphoma 10. Improvements in self-care and mobility. Patient Condition: Good Hospital Course Patient was admitted for comprehensive interdisciplinary rehab and made steady functional gains frim a MOd assist level to a SBA level for self care and mobility. Patient did have continued pain which has improved. He received MRI which demonstrated fluid collection in psoas muscle, and was followed closely by ID. the collection was not felt to be infectious, as there was so leukocytosis, fever or chills. ID recommended f.u. MRI in 2-4 weeks. Case was d/w Dr. 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 Patient will have follow up with oncologist. DC meds are per the med reconciliation sheet. DME rec: FWW, BSC, shower chair. [facility] will follow up with PMD and Dr. Terrazas. Home Meds Reported Medications Aspirin (Low Dose Aspirin) 81 Mg Tablet., 81 MG PO DAILY, #30 TAB 07/14/18 Dutasteride* (Avodart*) 0.5 Mg Capsule, 0.5 MG PO DAILY, CAP 07/14/18 Metoprolol Succinate* (Toprol XL*) 25 Mg Tab.sr.24h, 25 MG PO DAILY, #30 TAB 07/14/18 Cyclobenzaprine Hcl* (Cyclobenzaprine Hcl*) 10 Mg Tablet, 10 MG PO BID PRN for MUSCLE SPASMS, #60 TAB 07/14/18 Doxazosin Mesylate* (Doxazosin Mesylate*) 8 Mg Tablet, 8 MG PO HS, TAB 07/14/18 Atorvastatin Calcium (Atorvastatin Calcium) 10 Mg Tablet, 10 MG PO QHS, #30 TAB 07/14/18 Primary Care Provider Not On Staff Doctor KINA WILL MD Jul 31, 2018 13:03
[2018-07-31 14:00] VITALS: BP 141/67; PULSE 81; RESP 18
--- NOTE | 2018-07-31 17:00 | NUR ---
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 patient will have normal bowel and bladder- goal met 2. patient will not develop any skin breakdown while in ARU- met incision dry & clean 3. patient will not fall while in the Unit- goal met 4. patient pain level will be control- not met, on pain medication 5. Short-term goals not met and reason/barriers: Achievement of Long-term Goals: Long-term Goals not met and reason/barriers: Bladder - level of function and accidents: Bowel - level of function and accidents: Skin: Status: Treatment: Changes: Pain: Level: Location: Management: Changes: Functional levels: Self Care: Transfers: Locomotion: Assistance requirements: Communication: Social Cognition: Safety awareness: Interdisciplinary interactions: Patient education: Discharge needs: Comorbid conditions:
--- NOTE | 2018-07-31 17:00 | NUR ---
Nursing Notes: patient refuse photograph of the abdominal and back dressing.
== END 2018-07-31 18:00 | disposition home health service (06) | DRG 560 ==
LOC: VRC 23:00
PROVIDERS: ADMIT Physical Medicine & Rehabilitation; ATTEND Specialist
PROC: F07Z5ZZ Bed Mobility Treatment (ICD-10-PCS; principal; 2018-07-17)
PROC: F08Z2ZZ Grooming/Personal Hygiene Treatment (ICD-10-PCS; 2018-07-17)
DX: Z47.89 Encounter for other orthopedic aftercare (principal); C85.90 Non-Hodgkin lymphoma, unspecified, unspecified site; D62 Acute posthemorrhagic anemia; M54.16 Radiculopathy, lumbar region; J44.9 Chronic obstructive pulmonary disease, unspecified; G47.30 Sleep apnea, unspecified; E78.5 Hyperlipidemia, unspecified; I10 Essential (primary) hypertension; N40.0 Benign prostatic hyperplasia without lower urinary tract symptoms; I25.10 Atherosclerotic heart disease of native coronary artery without angina pectoris; K59.00 Constipation, unspecified; F06.31 Mood disorder due to known physiological condition with depressive features
CPT/HCPCS: 72131; 72158; 80048; 80053; 81001; 82728; 83540; 84145; 85025; 85651; 86140; 87081; 87086; 97110; 97112; 97116; 97150; 97163; 97166; 97530; 97535; 97542; J1170; J1885